=== PATIENT | female | born 1955 | race African-American/Black ===

== ENCOUNTER 2017-01-14 18:09 | Inpatient (IN) | payer MEDICAID ==
[~2017-01-14] VITALS: Ht 154.9 cm; Wt 83.1 kg
[~2017-01-14 18:09] MED LIST: ASPI-986 PO; ATOR-2 PO; CLOP75TA33 PO; FAMO20TA8 PO; FURO20TA4 PO; HYDR-4134 PO; INSU3INS6 SUBCUT; INSULIN LISPRO SQ; LEVO25TA7 PO; METO-385 PO
[2017-01-14] MEDS ORDERED: ASPIRIN 81MG TABLET PO STA (20:36)
[2017-01-14 21:19] LABS: BASOPHILS % 0.7 % (0.0-2.0); CHLORIDE 98 mEq/L (98-107); EOSINOPHILS % 3.3 % (0.0-5.0); HEMATOCRIT. 31.7 % (36.0-48.0); HEMOGLOBIN. 10.4 g/dL (12.0-16.0); LYMPHOCYTES % 13.5 % (20.0-50.0); MEAN CORPUSCULAR HEMOGLOBIN 29.9 pg (28.0-32.0); MEAN CORPUSCULAR VOLUME 90.6 fL (81.0-99.0); MEAN PLATELET VOLUME 8.3 fl (7.4-10.4); MONOCYTES % 7.3 % (2.0-8.0); NEUTROPHILS % 75.2 % (40.0-76.0); PLATELET 285 x1000/uL (130-400); RED CELL DISTRIBUTION WIDTH 17.5 % (11.6-14.6)
[2017-01-14 21:30] LABS: CARBON DIOXIDE 30 mEq/L (21-32); TROPONIN I 0.33 ng/mL (0.00-0.04)
[2017-01-14 21:34] LABS: D-DIMER 6.67 mg/L FEU (<0.50); PARTIAL THROMBOPLASTIN TIME 30.1 sec (24.0-34.0); PROTHROMBIN TIME 10.9 sec
[2017-01-14] MEDS ORDERED: SODIUM BICARBONATE 8.4% 1 MEQ/ML 50ML SYR IV ONE (21:45)
[2017-01-14] MEDS ORDERED: SODIUM POLYSTYRENE SULFONATE 15 G/60 ML BOT PO ONE (21:45)
[2017-01-15] MEDS ORDERED: ACETAMINOPHEN WITH CODEINE 300/30MG TABLET PO PRN (07:15)
[2017-01-15] MEDS ORDERED: DEXTROSE 50% WATER 50ML SYRINGE IV PRN ×2 (08:45→20:15)
[2017-01-15] MEDS: CLOPIDOGREL 75MG TABLET PO SCH (09:00)
[2017-01-15] MEDS: LEVOTHYROXINE SODIUM 50MCG TABLET PO SCH (09:00)
[2017-01-15] MEDS: DOCUSATE SODIUM 100MG CAPSULE PO SCH ×2 (09:00→16:17)
[2017-01-15] MEDS: METOPROLOL TARTRATE 50MG TABLET PO SCH ×2 (09:00→21:00)
[2017-01-15] MEDS: FUROSEMIDE 80MG TABLET PO SCH ×2 (10:00→16:17)
[2017-01-15] MEDS: BLOOD SUGAR DIAGNOSTIC STRIP TEST SCH ×3 (12:10→21:00)
[2017-01-15] MEDS: INSULIN LISPRO 100 UNITS/ML SUBCUT SCH ×3 (12:15→21:00)
[2017-01-15] MEDS: INSULIN DETEMIR UD 100 UNITS/ML SYR SUBCUT SCH (12:15)
[2017-01-15] MEDS ORDERED: ONDANSETRON HCL 4MG/2ML VIAL IV PRN (14:00)
[2017-01-15] MEDS: ACETAMINOPHEN 325MG TABLET PO PRN (17:06)
[2017-01-15] MEDS ORDERED: LEVOFLOXACIN 250MG TABLET PO NR (19:30)
[2017-01-15] MEDS ORDERED: REGADENOSON 0.4 MG/5 ML IV NR (19:30)
[2017-01-15] MEDS ORDERED: BLOOD SUGAR DIAGNOSTIC STRIP TEST SCH (21:00)
[2017-01-15] MEDS ORDERED: INSULIN LISPRO 100 UNITS/ML SUBCUT SCH (21:00)
[2017-01-15] MEDS ORDERED: INSULIN DETEMIR UD 100 UNITS/ML SYR SUBCUT SCH (22:00)
[2017-01-16] MEDS: ATORVASTATIN CALCIUM 40MG TABLET PO SCH ×2 (00:25→20:48)
[2017-01-16] MEDS: EPOETIN ALFA 4000UNITS/ML VIAL SUBCUT SCH (00:29)
[2017-01-16] MEDS: OMEPRAZOLE 20MG CAPSULE EXTENDED RELEASE PO SCH (06:41)
[2017-01-16] MEDS: LEVOTHYROXINE SODIUM 50MCG TABLET PO SCH (06:41)
[2017-01-16] MEDS: BLOOD SUGAR DIAGNOSTIC STRIP TEST SCH ×4 (07:10→20:57)
[2017-01-16 07:20] LABS: HEMATOCRIT. 27.9 % (36.0-48.0); HEMOGLOBIN. 9.2 g/dL (12.0-16.0); MEAN CORPUSCULAR VOLUME 91.1 fL (81.0-99.0); PLATELET 215 x1000/uL (130-400); RED BLOOD CELL COUNT 3.07 mill/uL (4.2-5.4); RED CELL DISTRIBUTION WIDTH 18.3 % (11.6-14.6)
[2017-01-16] MEDS: INSULIN LISPRO 100 UNITS/ML SUBCUT SCH ×4 (07:26→21:09)
[2017-01-16] MEDS ORDERED: VANCOMYCIN 1 G PREMIX 200 ML IV ONE (08:30)
[2017-01-16] MEDS: CLOPIDOGREL 75MG TABLET PO SCH (09:00)
[2017-01-16] MEDS: DOCUSATE SODIUM 100MG CAPSULE PO SCH ×2 (09:00→19:36)
[2017-01-16] MEDS: METOPROLOL TARTRATE 50MG TABLET PO SCH ×2 (09:00→20:49)
[2017-01-16] MEDS: FUROSEMIDE 80MG TABLET PO SCH ×2 (09:00→19:36)
[2017-01-16 09:12] LABS: CARBON DIOXIDE 24 mEq/L (21-32); CHLORIDE 101 mEq/L (98-107); PHOSPHORUS 4.7 mg/dL (2.5-4.9)
[2017-01-16] MEDS ORDERED: VANCOMYCIN 1500MG in DEXTROSE 5% WATER 250ML IV NR (09:30)
[2017-01-16 09:39] LABS: TROPONIN I 0.65 ng/mL (0.00-0.04)
[2017-01-16] MEDS ORDERED: CLONIDINE 0.1MG TABLET PO PRN (11:30)
[2017-01-16] MEDS ORDERED: CLONIDINE 0.2MG TABLET PO PRN (11:30)
[2017-01-16] MEDS: ENOXAPARIN 30MG/0.3ML SYR SUBCUT SCH (11:45)
[2017-01-16] MEDS: INSULIN DETEMIR UD 100 UNITS/ML SYR SUBCUT SCH (11:46)
[2017-01-16] MEDS: ACETAMINOPHEN 325MG TABLET PO PRN ×2 (11:47→22:33)
[2017-01-16 13:25] LABS: PLATELET ESTIMATE NORMAL
[2017-01-16 13:54] LABS: CLARITY URINE CLEAR (CLEAR); COLOR URINE YELLOW (YELLOW); KETONES URINE NEGATIVE (NEGATIVE); LEUKOCYTE ESTERASE URINE NEGATIVE (NEGATIVE); NITRITE URINE NEGATIVE (NEGATIVE); OCCULT BLOOD URINE 1+ (NEGATIVE); PROTEIN URINE 3+ (NEGATIVE); SPECIFIC GRAVITY URINE 1.016 (1.005-1.030)
[2017-01-16] MEDS: ASPIRIN 81MG TABLET PO SCH (19:36)
[2017-01-16] MEDS ORDERED: ROPI0.5T PO (23:23)
[2017-01-16] MEDS ORDERED: DOCU-267 PO (23:23)
[2017-01-16] MEDS ORDERED: HYDR-523 PO (23:23)
[2017-01-17] MEDS: OMEPRAZOLE 20MG CAPSULE EXTENDED RELEASE PO SCH (05:52)
[2017-01-17] MEDS: LEVOTHYROXINE SODIUM 50MCG TABLET PO SCH (05:52)
[2017-01-17] MEDS: BLOOD SUGAR DIAGNOSTIC STRIP TEST SCH ×4 (05:52→20:45)
[2017-01-17 06:42] LABS: HEMATOCRIT. 29.8 % (36.0-48.0); HEMOGLOBIN. 9.8 g/dL (12.0-16.0); MEAN CORPUSCULAR HEMOGLOBIN 29.6 pg (28.0-32.0); MEAN CORPUSCULAR VOLUME 89.7 fL (81.0-99.0); MEAN PLATELET VOLUME 8.5 fl (7.4-10.4); PLATELET 189 x1000/uL (130-400); RED BLOOD CELL COUNT 3.32 mill/uL (4.2-5.4); RED CELL DISTRIBUTION WIDTH 17.4 % (11.6-14.6)
[2017-01-17 07:17] LABS: CARBON DIOXIDE 28 mEq/L (21-32); CHLORIDE 94 mEq/L (98-107); CREATINE KINASE 542 IU/L (26-192); CREATINE KINASE MB FRACTION 1.8 ng/mL (0.5-3.6); HDL CHOLESTEROL 33 mg/dL (40-59); LDL CHOLESTEROL 49 mg/dL (5-100); TOTAL IRON BINDING CAPACITY 153 ug/dL (250-450)
[2017-01-17] MEDS: INSULIN LISPRO 100 UNITS/ML SUBCUT SCH ×4 (07:19→20:43)
[2017-01-17 07:39] LABS: TROPONIN I 0.89 ng/mL (0.00-0.04)
[2017-01-17 07:44] LABS: VITAMIN B12 SERUM 1074 pg/mL (211-911)
[2017-01-17] MEDS: METOPROLOL TARTRATE 50MG TABLET PO SCH ×2 (09:00→20:43)
[2017-01-17 09:11] LABS: PLATELET ESTIMATE NORMAL
[2017-01-17] MEDS: ENOXAPARIN 30MG/0.3ML SYR SUBCUT SCH (09:14)
[2017-01-17] MEDS: INSULIN DETEMIR UD 100 UNITS/ML SYR SUBCUT SCH (10:00)
[2017-01-17 10:12] LABS: BG BASE EXCESS 3.8 mmol/L (-2.0-2.0); BG CARBOXYHEMOGLOBIN 0.5 % (0.5-1.5); BG DEOXYHEMOGLOBIN 12.7 % (0.0-5.0); BG FRACTION INSPIRED OXYGEN 21; BG HCO3 ACT 27.4 mmol/L (22.0-26.0); BG METHEMOGLOBIN 0.3 % (0.0-1.5); BG OXYGEN SATURATION 87.2 % (92.0-98.5); BG OXYHEMOGLOBIN 86.5 % (94.0-97.0); BG PCO2 37.3 mmHg (35.0-45.0); BG PH 7.484 (7.350-7.450); BG PO2 53.9 mmHg (75.0-100.0); BG SAMPLE SITE LEFT RADIAL; BG TOTAL HEMOGLOBIN 9.4 g/dL (12.0-18.0); BG VENT MODE ROOM AIR
[2017-01-17] MEDS: MINERAL OIL/PETROLATUM,WHITE CREAM 113GM JAR TOP SCH (10:42)
[2017-01-17] MEDS ORDERED: LEVOFLOXACIN 250MG TABLET PO SCH (11:00)
[2017-01-17] MEDS: CLOPIDOGREL 75MG TABLET PO SCH (13:07)
[2017-01-17] MEDS: ASPIRIN 81MG TABLET PO SCH (13:07)
[2017-01-17] MEDS: FUROSEMIDE 80MG TABLET PO SCH ×2 (13:08→17:27)
[2017-01-17] MEDS: DOCUSATE SODIUM 100MG CAPSULE PO SCH ×2 (13:08→17:27)
[2017-01-17] MEDS ORDERED: VANCOMYCIN 1500MG in DEXTROSE 5% WATER 250ML IV NR (16:00)
[2017-01-17] MEDS: ATORVASTATIN CALCIUM 40MG TABLET PO SCH (20:42)
[2017-01-17] MEDS: EPOETIN ALFA 4000UNITS/ML VIAL SUBCUT SCH (20:43)
[2017-01-18] MEDS: LEVOTHYROXINE SODIUM 50MCG TABLET PO SCH (06:12)
[2017-01-18] MEDS: OMEPRAZOLE 20MG CAPSULE EXTENDED RELEASE PO SCH (06:12)
[2017-01-18] MEDS: BLOOD SUGAR DIAGNOSTIC STRIP TEST SCH ×4 (06:14→21:00)
[2017-01-18 07:05] LABS: HEMATOCRIT. 29.6 % (36.0-48.0); HEMOGLOBIN. 9.7 g/dL (12.0-16.0); MEAN CORPUSCULAR HEMOGLOBIN 29.8 pg (28.0-32.0); MEAN PLATELET VOLUME 9.2 fl (7.4-10.4); PLATELET 166 x1000/uL (130-400); RED BLOOD CELL COUNT 3.25 mill/uL (4.2-5.4); RED CELL DISTRIBUTION WIDTH 17.8 % (11.6-14.6)
[2017-01-18 07:23] LABS: PHOSPHORUS 2.9 mg/dL (2.5-4.9)
[2017-01-18] MEDS: DOCUSATE SODIUM 100MG CAPSULE PO SCH ×2 (08:11→17:00)
[2017-01-18] MEDS: INSULIN LISPRO 100 UNITS/ML SUBCUT SCH ×4 (08:11→22:27)
[2017-01-18] MEDS: ENOXAPARIN 30MG/0.3ML SYR SUBCUT SCH (08:11)
[2017-01-18] MEDS: FUROSEMIDE 80MG TABLET PO SCH ×2 (08:12→17:39)
[2017-01-18] MEDS: MINERAL OIL/PETROLATUM,WHITE CREAM 113GM JAR TOP SCH (08:12)
[2017-01-18] MEDS: CLOPIDOGREL 75MG TABLET PO SCH (08:12)
[2017-01-18] MEDS: METOPROLOL TARTRATE 50MG TABLET PO SCH (08:12)
[2017-01-18] MEDS: ASPIRIN 81MG TABLET PO SCH (08:14)
[2017-01-18] MEDS: INSULIN DETEMIR UD 100 UNITS/ML SYR SUBCUT SCH (10:47)
[2017-01-18 12:35] LABS: PLATELET ESTIMATE NORMAL
[2017-01-18] MEDS ORDERED: SODIUM CHLORIDE 0.9% 10ML VIAL ONE (14:46)
[2017-01-18] MEDS ORDERED: IOHEXOL-350 100 ML BOTTLE ONE (14:46)
[2017-01-18] MEDS: METOPROLOL TARTRATE 25MG TABLET PO SCH (21:00)
[2017-01-18] MEDS ORDERED: ATORVASTATIN CALCIUM 20MG TABLET PO SCH (21:00)
[2017-01-18] MEDS: ATORVASTATIN CALCIUM 40MG TABLET PO SCH (22:25)
[2017-01-19] MEDS: BLOOD SUGAR DIAGNOSTIC STRIP TEST SCH ×4 (06:25→20:44)
[2017-01-19] MEDS: OMEPRAZOLE 20MG CAPSULE EXTENDED RELEASE PO SCH (06:25)
[2017-01-19] MEDS: LEVOTHYROXINE SODIUM 50MCG TABLET PO SCH (06:25)
[2017-01-19 07:02] LABS: HEMATOCRIT. 25.8 % (36.0-48.0); HEMOGLOBIN. 8.6 g/dL (12.0-16.0); MEAN CORPUSCULAR HEMOGLOBIN 29.8 pg (28.0-32.0); MEAN CORPUSCULAR VOLUME 89.9 fL (81.0-99.0); MEAN PLATELET VOLUME 8.7 fl (7.4-10.4); PLATELET 182 x1000/uL (130-400); RED BLOOD CELL COUNT 2.87 mill/uL (4.2-5.4); RED CELL DISTRIBUTION WIDTH 17.9 % (11.6-14.6)
[2017-01-19] MEDS: INSULIN LISPRO 100 UNITS/ML SUBCUT SCH ×4 (07:20→21:03)
[2017-01-19 07:37] LABS: PHOSPHORUS 3.8 mg/dL (2.5-4.9)
[2017-01-19] MEDS: CLOPIDOGREL 75MG TABLET PO SCH (08:34)
[2017-01-19] MEDS: ASPIRIN 81MG TABLET PO SCH (08:34)
[2017-01-19] MEDS: FUROSEMIDE 80MG TABLET PO SCH (08:34)
[2017-01-19] MEDS: METOPROLOL TARTRATE 25MG TABLET PO SCH ×2 (08:35→20:54)
[2017-01-19] MEDS: ENOXAPARIN 30MG/0.3ML SYR SUBCUT SCH (08:36)
[2017-01-19] MEDS: MINERAL OIL/PETROLATUM,WHITE CREAM 113GM JAR TOP SCH (08:47)
[2017-01-19] MEDS: DOCUSATE SODIUM 100MG CAPSULE PO SCH (09:00)
[2017-01-19] MEDS: INSULIN DETEMIR UD 100 UNITS/ML SYR SUBCUT SCH (11:24)
[2017-01-19] MEDS: DIPHENOXYLATE/ATROPINE 2.5/0.025MG TABLET PO PRN (13:46)
[2017-01-19 15:08] LABS: PLATELET ESTIMATE NORMAL
[2017-01-19] MEDS ORDERED: EPOETIN ALFA 4000UNITS/ML VIAL SUBCUT SCH (21:00)
[2017-01-19] MEDS: ATORVASTATIN CALCIUM 40MG TABLET PO SCH (21:02)
[2017-01-20] MEDS: BLOOD SUGAR DIAGNOSTIC STRIP TEST SCH ×3 (06:56→16:08)
[2017-01-20] MEDS: OMEPRAZOLE 20MG CAPSULE EXTENDED RELEASE PO SCH (06:57)
[2017-01-20] MEDS: INSULIN LISPRO 100 UNITS/ML SUBCUT SCH ×3 (07:19→16:51)
[2017-01-20] MEDS: CLOPIDOGREL 75MG TABLET PO SCH (08:25)
[2017-01-20] MEDS: ENOXAPARIN 30MG/0.3ML SYR SUBCUT SCH (08:25)
[2017-01-20] MEDS: ASPIRIN 81MG TABLET PO SCH (08:25)
[2017-01-20] MEDS: MINERAL OIL/PETROLATUM,WHITE CREAM 113GM JAR TOP SCH (08:26)
[2017-01-20] MEDS ORDERED: FUROSEMIDE 80MG TABLET PO SCH (09:00)
[2017-01-20 09:54] LABS: BG BASE EXCESS 0.9 mmol/L (-2.0-2.0); BG CARBOXYHEMOGLOBIN 0.2 % (0.5-1.5); BG DEOXYHEMOGLOBIN 6.4 % (0.0-5.0); BG FRACTION INSPIRED OXYGEN 21; BG HCO3 ACT 24.9 mmol/L (22.0-26.0); BG METHEMOGLOBIN 0.3 % (0.0-1.5); BG OXYGEN SATURATION 93.6 % (92.0-98.5); BG OXYHEMOGLOBIN 93.1 % (94.0-97.0); BG PCO2 37.1 mmHg (35.0-45.0); BG PH 7.444 (7.350-7.450); BG PO2 72.2 mmHg (75.0-100.0); BG SAMPLE SITE LEFT BRACHIAL; BG TOTAL HEMOGLOBIN 9.3 g/dL (12.0-18.0); BG VENT MODE ROOM AIR
[2017-01-20] MEDS: DIPHENOXYLATE/ATROPINE 2.5/0.025MG TABLET PO PRN (10:40)
[2017-01-20] MEDS: INSULIN DETEMIR UD 100 UNITS/ML SYR SUBCUT SCH (11:20)
[2017-01-20] MEDS: METOPROLOL TARTRATE 25MG TABLET PO SCH (16:33)
[2017-01-20 18:00] VITALS: BP 148/65
[2017-01-21] MEDS ORDERED: FAMOTIDINE 20MG TABLET PO SCH (06:50)
== END 2017-01-20 18:53 | disposition home or self-care (01) | DRG 466 ==
LOC: ER 18:36 → 8WST 22:13 → EDBEDREQ 22:19 → ENRESERV 01-15 07:03 → 3WST 01-16 22:50
PROVIDERS: ADMIT Internal Medicine Pulmonary Disease; ATTEND Internal Medicine Pulmonary Disease
PROC: 5A1D60Z (ICD-10-PCS; 2017-01-15)
PROC: 02HV33Z Insertion of Infusion Device into Superior Vena Cava, Percutaneous Approach (ICD-10-PCS; principal; 2017-01-18)
PROC: B548ZZA Ultrasonography of Superior Vena Cava, Guidance (ICD-10-PCS; 2017-01-18)
PROC: B5181ZA Fluoroscopy of Superior Vena Cava using Low Osmolar Contrast, Guidance (ICD-10-PCS; 2017-01-18)
DX: T82.7XXA Infection and inflammatory reaction due to other cardiac and vascular devices, implants and grafts, initial encounter (principal); N18.6 End stage renal disease; I13.2 Hypertensive heart and chronic kidney disease with heart failure and with stage 5 chronic kidney disease, or end stage renal disease; E11.22 Type 2 diabetes mellitus with diabetic chronic kidney disease; I27.2 Other secondary pulmonary hypertension; I69.354 Hemiplegia and hemiparesis following cerebral infarction affecting left non-dominant side; K21.9 Gastro-esophageal reflux disease without esophagitis; I44.0 Atrioventricular block, first degree; D63.8 Anemia in other chronic diseases classified elsewhere; E03.9 Hypothyroidism, unspecified; E78.00 Pure hypercholesterolemia, unspecified; I25.10 Atherosclerotic heart disease of native coronary artery without angina pectoris; I35.8 Other nonrheumatic aortic valve disorders; I50.9 Heart failure, unspecified; I70.0 Atherosclerosis of aorta; I87.2 Venous insufficiency (chronic) (peripheral); L28.0 Lichen simplex chronicus; N39.0 Urinary tract infection, site not specified; R09.02 Hypoxemia; J98.11 Atelectasis; R79.1 Abnormal coagulation profile; Z79.02 Long term (current) use of antithrombotics/antiplatelets; Z79.899 Other long term (current) drug therapy; Z87.01 Personal history of pneumonia (recurrent); Z87.891 Personal history of nicotine dependence; Z95.5 Presence of coronary angioplasty implant and graft; Z99.2 Dependence on renal dialysis; Z79.4 Long term (current) use of insulin
CPT/HCPCS: 36415; 36569; 36600; 71010; 71275; 76937; 77001; 78582; 80048; 80053; 80061; 80202; 81001; 82375; 82550; 82553; 82607; 82805; 82962; 83540; 83550; 83735; 83880; 84100; 84443; 84484; 85025; 85044; 85379; 85610; 85730; 87040; 87086; 93005; 93306; 93970; 96374; 97162; 97167; 99285; A4216; A9500; A9558; C1725; C1893; J0885; J1650; J1815; J3370; J3490; J7030; J7050; J7060; Q9967

== ENCOUNTER 2017-03-05 17:32 | Emergency (ER) | payer MEDICAID ==
[~2017-03-05] VITALS: Ht 162.6 cm; Wt 70.0 kg
[~2017-03-05 17:32] MED LIST changes: +DOCU-267 PO; +HYDR-523 PO; +ROPI0.5T PO
[2017-03-05 17:50] VITALS: BP 127/71
[2017-03-05] MEDS ORDERED: ASPIRIN 81MG TABLET PO STA (17:54)
[2017-03-05 18:36] LABS: BASOPHILS % 0.8 % (0.0-2.0); EOSINOPHILS % 6.3 % (0.0-5.0); HEMATOCRIT. 28.7 % (36.0-48.0); HEMOGLOBIN. 9.3 g/dL (12.0-16.0); LYMPHOCYTES % 12.2 % (20.0-50.0); MEAN CORPUSCULAR HEMOGLOBIN 30.3 pg (28.0-32.0); MEAN PLATELET VOLUME 8.1 fl (7.4-10.4); MONOCYTES % 11.7 % (2.0-8.0); PLATELET 357 x1000/uL (130-400); RED BLOOD CELL COUNT 3.08 mill/uL (4.2-5.4); RED CELL DISTRIBUTION WIDTH 17.3 % (11.6-14.6)
[2017-03-05 18:43] LABS: CHLORIDE 97 mEq/L (98-107)
[2017-03-05 18:44] LABS: INR 1.1; PROTHROMBIN TIME 11.5 sec (9.4-11.6)
[2017-03-05 18:48] LABS: CARBON DIOXIDE 26 mEq/L (21-32)
[2017-03-05 18:51] LABS: PHOSPHORUS 4.2 mg/dL (2.5-4.9)
[2017-03-05 18:56] LABS: TROPONIN I 0.28 ng/mL (0.00-0.04)
== END 2017-03-05 19:00 | disposition left against medical advice (07) ==
LOC: EDBEDREQ 18:07 → EDBEDREQTM 18:07 → ENRESERV 18:49 → CANRESERV 18:49 → ER 18:56 → ENRESERV 03-06 01:53 → CANRESERV 03-06 01:53 → CANBEDREQ 03-07 01:11
DX: I12.0 Hypertensive chronic kidney disease with stage 5 chronic kidney disease or end stage renal disease (principal); E11.22 Type 2 diabetes mellitus with diabetic chronic kidney disease; E78.5 Hyperlipidemia, unspecified; N18.6 End stage renal disease; R07.9 Chest pain, unspecified; N17.9 Acute kidney failure, unspecified; Z79.4 Long term (current) use of insulin; Z88.8 Allergy status to other drugs, medicaments and biological substances; Z99.2 Dependence on renal dialysis; Z79.82 Long term (current) use of aspirin; Z86.73 Personal history of transient ischemic attack (TIA), and cerebral infarction without residual deficits
CPT/HCPCS: 36415; 71010; 80053; 83690; 83735; 84100; 84443; 84484; 85025; 85610; 85730; 93005; 99285; Z7610

== ENCOUNTER 2018-02-17 15:05 | Inpatient (IN) | payer MEDICARE, MEDICAID ==
[~2018-02-17] VITALS: Ht 154.9 cm; Wt 72.6 kg
[2018-02-17] MEDS ORDERED: ONDANSETRON HCL 4MG/2ML INJ IV STA (20:46)
[2018-02-17] MEDS ORDERED: FAMOTIDINE 20MG/2ML VIAL IV STA (20:46)
[2018-02-17] MEDS ORDERED: MORPHINE SULFATE 4 MG/ML CPJ (NOT FOR IM USE) IV STA (20:46)
[2018-02-17 21:38] LABS: BASOPHILS % 0.6 % (0.0-2.0); EOSINOPHILS % 2.3 % (0.0-5.0); HEMATOCRIT. 35.1 % (36.0-48.0); HEMOGLOBIN. 11.6 g/dL (12.0-16.0); LYMPHOCYTES % 13.8 % (20.0-50.0); MEAN CORPUSCULAR VOLUME 93.9 fL (81.0-99.0); MONOCYTES % 8.9 % (2.0-8.0); NEUTROPHILS % 74.4 % (40.0-76.0); PLATELET 339 x1000/uL (130-400); RED BLOOD CELL COUNT 3.74 mill/uL (4.2-5.4); RED CELL DISTRIBUTION WIDTH 15.8 % (11.6-14.6)
[2018-02-17 21:41] LABS: CHLORIDE 93 mEq/L (98-107)
[2018-02-17 21:43] LABS: PARTIAL THROMBOPLASTIN TIME 26.7 sec (23.4-31.0); PROTHROMBIN TIME 10.5 sec (9.1-11.1)
[2018-02-17 21:47] LABS: PHOSPHORUS 6.3 mg/dL (2.5-4.9)
[2018-02-18] MEDS ORDERED: ASPIRIN 81MG TABLET PO ONE (00:30)
[2018-02-18] MEDS ORDERED: SODIUM POLYSTYRENE SULFONATE 15 G/60 ML BOT PO ONE (00:30)
[2018-02-18 02:00] VITALS: BP 177/80
[2018-02-18 04:00] VITALS: BP 148/77
[2018-02-18] MEDS ORDERED: DEXT 5%/0.45% NACL 1000ML 1,000 ML IV SCH (05:40)
[2018-02-18] MEDS ORDERED: ENOXAPARIN 40MG/0.4ML SYR SUBCUT SCH (05:45)
[2018-02-18] MEDS ORDERED: ONDANSETRON HCL 4MG/2ML INJ IV PRN (05:45)
[2018-02-18] MEDS ORDERED: HYDROMORPHONE HCL/PF 2MG/ML CPJ IV PRN (05:45)
[2018-02-18] MEDS: HYDRALAZINE HCL 50MG TABLET PO SCH ×2 (06:00→13:18)
[2018-02-18] MEDS ORDERED: DEXTROSE 50% WATER 50ML SYRINGE IV PRN (06:00)
[2018-02-18] MEDS: BLOOD SUGAR DIAGNOSTIC STRIP TEST SCH ×4 (06:00→21:41)
[2018-02-18] MEDS: ROPINIROLE HCL 1MG TABLET PO SCH ×4 (06:00→21:48)
[2018-02-18 06:51] LABS: BASOPHILS % 0.4 % (0.0-2.0); EOSINOPHILS % 1.9 % (0.0-5.0); HEMATOCRIT. 32.2 % (36.0-48.0); HEMOGLOBIN. 11.2 g/dL (12.0-16.0); LYMPHOCYTES % 12.4 % (20.0-50.0); MEAN CORPUSCULAR HEMOGLOBIN 32.3 pg (28.0-32.0); MEAN CORPUSCULAR VOLUME 92.4 fL (81.0-99.0); MEAN PLATELET VOLUME 8.6 fl (7.4-10.4); MONOCYTES % 6.4 % (2.0-8.0); NEUTROPHILS % 78.9 % (40.0-76.0); PLATELET 333 x1000/uL (130-400); RED BLOOD CELL COUNT 3.49 mill/uL (4.2-5.4); RED CELL DISTRIBUTION WIDTH 15.8 % (11.6-14.6)
[2018-02-18 07:01] LABS: CLARITY URINE CLEAR (CLEAR); COLOR URINE YELLOW (YELLOW); KETONES URINE NEGATIVE (NEGATIVE); LEUKOCYTE ESTERASE URINE TRACE (NEGATIVE); NITRITE URINE NEGATIVE (NEGATIVE); OCCULT BLOOD URINE NEGATIVE (NEGATIVE); PH URINE >=9.0 (4.5-8.0); PROTEIN URINE 2+ (NEGATIVE); SPECIFIC GRAVITY URINE 1.007 (1.005-1.030); UROBILINOGEN URINE 0.2 E.U./dL (0.2-1.0)
[2018-02-18 07:12] LABS: CHLORIDE 95 mEq/L (98-107)
[2018-02-18 07:21] LABS: AMYLASE 173 IU/L (25-115)
[2018-02-18] MEDS ORDERED: LEVOTHYROXINE SODIUM 25MCG TABLET PO SCH (07:40)
[2018-02-18 07:42] VITALS: BP 147/79
[2018-02-18] MEDS: INSULIN LISPRO 100 UNITS/ML SUBCUT SCH ×4 (08:10→21:00)
[2018-02-18] MEDS: CLOPIDOGREL 75MG TABLET PO SCH (09:27)
[2018-02-18] MEDS: ASPIRIN 81MG TABLET PO SCH (09:28)
[2018-02-18] MEDS: ENOXAPARIN 30MG/0.3ML SYR SUBCUT SCH (09:28)
[2018-02-18] MEDS: METOPROLOL TARTRATE 50MG TABLET PO SCH ×2 (09:28→21:48)
[2018-02-18 11:42] VITALS: BP 136/77
[2018-02-18 15:28] VITALS: BP 112/58
[2018-02-18 20:00] VITALS: BP 124/66
[2018-02-18] MEDS: ATORVASTATIN CALCIUM 40MG TABLET PO SCH (21:48)
[2018-02-19] VITALS: BP 151/75
[2018-02-19 04:00] VITALS: BP 149/71
[2018-02-19] MEDS: ROPINIROLE HCL 1MG TABLET PO SCH ×3 (05:49→21:16)
[2018-02-19 07:15] LABS: BASOPHILS % 0.4 % (0.0-2.0); EOSINOPHILS % 2.4 % (0.0-5.0); HEMATOCRIT. 32.6 % (36.0-48.0); LYMPHOCYTES % 11.6 % (20.0-50.0); MEAN CORPUSCULAR HEMOGLOBIN 31.4 pg (28.0-32.0); MEAN CORPUSCULAR VOLUME 93.5 fL (81.0-99.0); MEAN PLATELET VOLUME 8.2 fl (7.4-10.4); MONOCYTES % 6.5 % (2.0-8.0); NEUTROPHILS % 79.1 % (40.0-76.0); PLATELET 325 x1000/uL (130-400); RED BLOOD CELL COUNT 3.49 mill/uL (4.2-5.4); RED CELL DISTRIBUTION WIDTH 15.9 % (11.6-14.6)
[2018-02-19 07:30] LABS: PHOSPHORUS 4.8 mg/dL (2.5-4.9)
[2018-02-19] MEDS: INSULIN LISPRO 100 UNITS/ML SUBCUT SCH ×4 (08:10→21:00)
[2018-02-19] MEDS: ASPIRIN 81MG TABLET PO SCH (09:37)
[2018-02-19] MEDS: AMLODIPINE 10MG TABLET PO SCH (09:45)
[2018-02-19] MEDS: CLOPIDOGREL 75MG TABLET PO SCH (09:45)
[2018-02-19] MEDS: ENOXAPARIN 30MG/0.3ML SYR SUBCUT SCH (09:46)
[2018-02-19] MEDS: METOPROLOL TARTRATE 50MG TABLET PO SCH ×2 (09:46→21:16)
[2018-02-19] MEDS: BLOOD SUGAR DIAGNOSTIC STRIP TEST SCH ×3 (12:12→21:17)
[2018-02-19] MEDS ORDERED: NITROGLYCERIN 0.4MG TABLET SL SL PRN (15:00)
[2018-02-19] MEDS ORDERED: MORPHINE SULFATE 4 MG/ML CPJ (NOT FOR IM USE) IV PRN (15:15)
[2018-02-19 15:44] LABS: BG BASE EXCESS 1.4 mmol/L (-2.0-2.0); BG CARBOXYHEMOGLOBIN 0.1 % (0.5-1.5); BG DEOXYHEMOGLOBIN 8.5 % (0.0-5.0); BG FRACTION INSPIRED OXYGEN 28; BG HCO3 ACT 24.6 mmol/L (22.0-26.0); BG METHEMOGLOBIN 0.1 % (0.0-1.5); BG OXYGEN SATURATION 91.5 % (92.0-98.5); BG OXYHEMOGLOBIN 91.3 % (94.0-97.0); BG PCO2 33.6 mmHg (35.0-45.0); BG PH 7.482 (7.350-7.450); BG PO2 61.1 mmHg (75.0-100.0); BG SAMPLE SITE RIGHT RADIAL; BG VENT MODE NASAL CANNULA
[2018-02-19] MEDS: LOSARTAN POTASSIUM 50 MG TABLET PO SCH (15:47)
[2018-02-19] MEDS ORDERED: REGADENOSON 0.4 MG/5 ML IV NR (16:00)
[2018-02-19] MEDS ORDERED: ENOXAPARIN 40MG/0.4ML SYR SUBCUT NR (16:00)
[2018-02-19 16:23] VITALS: BP 125/69
[2018-02-19] MEDS ORDERED: CLONIDINE 0.1MG TABLET PO PRN (16:30)
[2018-02-19] MEDS ORDERED: CLONIDINE 0.2MG TABLET PO PRN (16:30)
[2018-02-19] MEDS: NITROGLYCERIN OINT 1GM/INCH UDPKT TD SCH ×2 (16:34→21:17)
[2018-02-19 17:30] LABS: CREATINE KINASE MB FRACTION 2.8 ng/mL (0.5-3.6)
[2018-02-19 20:16] VITALS: BP 133/67
[2018-02-19] MEDS: ATORVASTATIN CALCIUM 40MG TABLET PO SCH (21:16)
[2018-02-20] VITALS: BP 130/64
[2018-02-20 04:00] VITALS: BP 117/54
[2018-02-20] MEDS: NITROGLYCERIN OINT 1GM/INCH UDPKT TD SCH ×4 (04:35→22:32)
[2018-02-20] MEDS: ROPINIROLE HCL 1MG TABLET PO SCH ×3 (06:04→22:00)
[2018-02-20] MEDS: BLOOD SUGAR DIAGNOSTIC STRIP TEST SCH ×4 (06:53→21:00)
[2018-02-20 07:20] LABS: BASOPHILS % 0.6 % (0.0-2.0); EOSINOPHILS % 1.9 % (0.0-5.0); HEMATOCRIT. 28.1 % (36.0-48.0); HEMOGLOBIN. 9.7 g/dL (12.0-16.0); LYMPHOCYTES % 10.5 % (20.0-50.0); MEAN PLATELET VOLUME 8.4 fl (7.4-10.4); MONOCYTES % 6.3 % (2.0-8.0); NEUTROPHILS % 80.7 % (40.0-76.0); PLATELET 299 x1000/uL (130-400); RED BLOOD CELL COUNT 3.02 mill/uL (4.2-5.4); RED CELL DISTRIBUTION WIDTH 15.8 % (11.6-14.6)
[2018-02-20 07:47] LABS: CHLORIDE 101 mEq/L (98-107)
[2018-02-20 07:59] LABS: AMYLASE 101 IU/L (25-115); CREATINE KINASE 118 IU/L (26-192)
[2018-02-20] MEDS ORDERED: LIDOCAINE HCL 1% 10 MG/ML 10ML VIAL ONE (08:00)
[2018-02-20 08:01] LABS: CREATINE KINASE MB FRACTION 2.1 ng/mL (0.5-3.6); PHOSPHORUS 5.6 mg/dL (2.5-4.9)
[2018-02-20] MEDS: INSULIN LISPRO 100 UNITS/ML SUBCUT SCH ×4 (08:10→21:00)
[2018-02-20] MEDS: AMLODIPINE 10MG TABLET PO SCH (09:00)
[2018-02-20] MEDS: ENOXAPARIN 30MG/0.3ML SYR SUBCUT SCH (09:00)
[2018-02-20] MEDS: METOPROLOL TARTRATE 50MG TABLET PO SCH ×2 (09:00→22:32)
[2018-02-20] MEDS: LOSARTAN POTASSIUM 50 MG TABLET PO SCH (09:00)
[2018-02-20] MEDS: CLOPIDOGREL 75MG TABLET PO SCH (09:00)
[2018-02-20] MEDS: ASPIRIN 81MG TABLET PO SCH (09:00)
[2018-02-20] MEDS ORDERED: IOHEXOL-350 100 ML BOTTLE ONE (09:12)
[2018-02-20 12:00] VITALS: BP 140/66
[2018-02-20] MEDS: SEVELAMER CARBONATE 800 MG TABLET PO SCH ×2 (13:30→16:47)
[2018-02-20 15:44] VITALS: BP 137/73
[2018-02-20 20:21] VITALS: BP 138/77
[2018-02-20] MEDS ORDERED: EPOETIN ALFA 4000UNITS/ML VIAL SUBCUT SCH (21:00)
[2018-02-20] MEDS ORDERED: HEPARIN SODIUM 1,000 UNIT/1ML VIAL IV NR (21:15)
[2018-02-20] MEDS: ATORVASTATIN CALCIUM 40MG TABLET PO SCH (22:32)
[2018-02-20 23:46] VITALS: BP 112/76
[2018-02-21 04:00] VITALS: BP 124/60
[2018-02-21] MEDS: NITROGLYCERIN OINT 1GM/INCH UDPKT TD SCH ×3 (05:37→16:00)
[2018-02-21] MEDS: ROPINIROLE HCL 1MG TABLET PO SCH ×4 (05:37→13:38)
[2018-02-21] MEDS: BLOOD SUGAR DIAGNOSTIC STRIP TEST SCH ×3 (06:17→16:41)
[2018-02-21 06:31] LABS: BASOPHILS % 0.6 % (0.0-2.0); EOSINOPHILS % 4.8 % (0.0-5.0); HEMOGLOBIN. 9.3 g/dL (12.0-16.0); LYMPHOCYTES % 11.1 % (20.0-50.0); MEAN CORPUSCULAR VOLUME 92.9 fL (81.0-99.0); MEAN PLATELET VOLUME 8.3 fl (7.4-10.4); MONOCYTES % 9.4 % (2.0-8.0); NEUTROPHILS % 74.1 % (40.0-76.0); PLATELET 273 x1000/uL (130-400); RED BLOOD CELL COUNT 2.91 mill/uL (4.2-5.4); RED CELL DISTRIBUTION WIDTH 15.7 % (11.6-14.6)
[2018-02-21 07:03] LABS: PHOSPHORUS 4.7 mg/dL (2.5-4.9)
[2018-02-21 08:00] VITALS: BP 133/67
[2018-02-21] MEDS: INSULIN LISPRO 100 UNITS/ML SUBCUT SCH ×3 (08:10→18:10)
[2018-02-21] MEDS: ENOXAPARIN 30MG/0.3ML SYR SUBCUT SCH (08:46)
[2018-02-21] MEDS: METOPROLOL TARTRATE 50MG TABLET PO SCH (08:46)
[2018-02-21] MEDS: AMLODIPINE 10MG TABLET PO SCH (08:46)
[2018-02-21] MEDS: CLOPIDOGREL 75MG TABLET PO SCH (08:46)
[2018-02-21] MEDS: LOSARTAN POTASSIUM 50 MG TABLET PO SCH (08:47)
[2018-02-21] MEDS: ASPIRIN 81MG TABLET PO SCH (08:47)
[2018-02-21] MEDS: SEVELAMER CARBONATE 800 MG TABLET PO SCH ×3 (08:49→16:41)
[2018-02-21 12:00] VITALS: BP 129/63
[2018-02-21 16:00] VITALS: BP 117/65
[2018-02-21 17:26] VITALS: BP 117/65
== END 2018-02-21 19:00 | disposition home or self-care (01) | DRG 438 ==
LOC: ER 15:05 → 7WST 23:54 → EDBEDREQTM 23:55 → EDBEDREQ 23:55 → ENRESERV 02-18 00:02
PROVIDERS: ADMIT Ophthalmology; ATTEND Ophthalmology
PROC: 5A1D70Z Performance of Urinary Filtration, Intermittent, Less than 6 Hours Per Day (ICD-10-PCS; 2018-02-18)
PROC: 02HV33Z Insertion of Infusion Device into Superior Vena Cava, Percutaneous Approach (ICD-10-PCS; principal; 2018-02-20)
PROC: B548ZZA Ultrasonography of Superior Vena Cava, Guidance (ICD-10-PCS; 2018-02-20)
PROC: B5181ZA Fluoroscopy of Superior Vena Cava using Low Osmolar Contrast, Guidance (ICD-10-PCS; 2018-02-20)
DX: K85.10 Biliary acute pancreatitis without necrosis or infection (principal); N18.6 End stage renal disease; I13.11 Hypertensive heart and chronic kidney disease without heart failure, with stage 5 chronic kidney disease, or end stage renal disease; I69.354 Hemiplegia and hemiparesis following cerebral infarction affecting left non-dominant side; K76.0 Fatty (change of) liver, not elsewhere classified; E11.22 Type 2 diabetes mellitus with diabetic chronic kidney disease; E78.5 Hyperlipidemia, unspecified; E03.9 Hypothyroidism, unspecified; K21.9 Gastro-esophageal reflux disease without esophagitis; E78.00 Pure hypercholesterolemia, unspecified; I35.0 Nonrheumatic aortic (valve) stenosis; K80.20 Calculus of gallbladder without cholecystitis without obstruction; D64.9 Anemia, unspecified; E83.39 Other disorders of phosphorus metabolism; E87.5 Hyperkalemia; I44.0 Atrioventricular block, first degree; K74.60 Unspecified cirrhosis of liver; E11.21 Type 2 diabetes mellitus with diabetic nephropathy; Z79.4 Long term (current) use of insulin; Z79.899 Other long term (current) drug therapy; Z79.82 Long term (current) use of aspirin; Z88.8 Allergy status to other drugs, medicaments and biological substances; Z87.891 Personal history of nicotine dependence; Z99.2 Dependence on renal dialysis; Z99.3 Dependence on wheelchair; Z82.49 Family history of ischemic heart disease and other diseases of the circulatory system; Z83.3 Family history of diabetes mellitus
CPT/HCPCS: 36415; 36569; 36600; 71045; 71275; 74176; 76705; 76937; 77001; 78227; 78452; 80048; 80053; 80061; 80076; 81003; 82150; 82375; 82550; 82553; 82805; 82962; 83036; 83690; 83735; 84100; 84484; 85025; 85610; 85730; 87040; 93005; 93017; 93306; 93970; 96374; 96375; 97162; 99285; A9500; C1725; C1769; J0885; J1644; J1650; J1815; J2405; J3490; J7030; J7040; Q9967

== ENCOUNTER 2018-03-01 15:45 | Emergency (ER) | payer MEDICARE, MEDICAID ==
[~2018-03-01] VITALS: Ht 154.9 cm; Wt 66.0 kg
[2018-03-01 17:48] LABS: BASOPHILS % 0.7 % (0.0-2.0); EOSINOPHILS % 1.9 % (0.0-5.0); HEMATOCRIT. 36.9 % (36.0-48.0); HEMOGLOBIN. 12.2 g/dL (12.0-16.0); LYMPHOCYTES % 9.8 % (20.0-50.0); MEAN CORPUSCULAR HEMOGLOBIN 31.7 pg (28.0-32.0); MEAN PLATELET VOLUME 8.1 fl (7.4-10.4); MONOCYTES % 11.8 % (2.0-8.0); NEUTROPHILS % 75.8 % (40.0-76.0); PLATELET 395 x1000/uL (130-400); RED BLOOD CELL COUNT 3.84 mill/uL (4.2-5.4); RED CELL DISTRIBUTION WIDTH 16.6 % (11.6-14.6)
[2018-03-01 17:57] LABS: CHLORIDE 97 mEq/L (98-107)
[2018-03-02 04:20] VITALS: BP 148/62
== END 2018-03-02 05:01 | disposition home or self-care (01) ==
LOC: ER 15:45
DX: R07.89 Other chest pain (principal); E11.9 Type 2 diabetes mellitus without complications; I10 Essential (primary) hypertension; Z79.82 Long term (current) use of aspirin; Z79.4 Long term (current) use of insulin; Z79.899 Other long term (current) drug therapy
CPT/HCPCS: 36415; 71045; 80053; 83690; 84484; 85025; 93005; 99285; J7030

== ENCOUNTER 2018-04-29 00:44 | Inpatient (IN) | payer MEDICARE, MEDICAID ==
[~2018-04-29] VITALS: Ht 162.6 cm; Wt 76.2 kg
[2018-04-29] MEDS: BLOOD SUGAR DIAGNOSTIC STRIP TEST SCH ×3 (00:45→16:50)
[2018-04-29] MEDS ORDERED: MORPHINE SULFATE 4 MG/ML CPJ (NOT FOR IM USE) IV STA (01:17)
[2018-04-29 02:49] LABS: BASOPHILS % 0.5 % (0.0-2.0); EOSINOPHILS % 0.7 % (0.0-5.0); HEMATOCRIT. 45.5 % (36.0-48.0); HEMOGLOBIN. 15.2 g/dL (12.0-16.0); LYMPHOCYTES % 7.7 % (20.0-50.0); MEAN CORPUSCULAR HEMOGLOBIN 31.4 pg (28.0-32.0); MEAN CORPUSCULAR VOLUME 94.1 fL (81.0-99.0); MONOCYTES % 6.5 % (2.0-8.0); NEUTROPHILS % 84.6 % (40.0-76.0); PLATELET 340 x1000/uL (130-400); RED BLOOD CELL COUNT 4.84 mill/uL (4.2-5.4); RED CELL DISTRIBUTION WIDTH 14.8 % (11.6-14.6)
[2018-04-29 02:50] LABS: CHLORIDE 93 mEq/L (98-107)
[2018-04-29 02:54] LABS: PARTIAL THROMBOPLASTIN TIME 30.3 sec (23.4-31.0); PROTHROMBIN TIME 10.3 sec (9.1-11.1)
[2018-04-29] MEDS ORDERED: INSULIN REGULAR (HUMULIN R) 300UNITS/3ML IV SCH (03:23)
[2018-04-29] MEDS ORDERED: SODIUM POLYSTYRENE SULFONATE 15 G/60 ML BOT PO SCH (03:24)
[2018-04-29] MEDS ORDERED: DEXTROSE 50% WATER 50ML SYRINGE IV SCH (03:24)
[2018-04-29] MEDS ORDERED: ALBUTEROL (0.083%) 2.5MG/3ML NEB HHN SCH (03:24)
[2018-04-29] MEDS ORDERED: FUROSEMIDE 100MG/10ML VIAL IV SCH (03:25)
[2018-04-29] MEDS ORDERED: CALCIUM CHLORIDE 1GM/10ML SYR IV SCH (03:25)
[2018-04-29] MEDS ORDERED: SODIUM BICARBONATE 8.4% 1 MEQ/ML 50ML SYR IV SCH (03:25)
[2018-04-29] MEDS ORDERED: HEPARIN 25,000 UNITS PREMIX 500 ML IV PRN (04:15)
[2018-04-29] MEDS ORDERED: MORPHINE SULFATE 4 MG/ML CPJ (NOT FOR IM USE) IV ONE (04:15)
[2018-04-29] MEDS ORDERED: ASPIRIN 325MG EC TABLET PO ONE (04:15)
[2018-04-29] MEDS ORDERED: HEPARIN 5000 UNITS/ML VIAL IV SCH (04:15)
[2018-04-29] MEDS ORDERED: DIPHENHYDRAMINE 50MG/ML VIAL IV PRN (07:45)
[2018-04-29] MEDS ORDERED: GUAIFENESIN 200MG/10ML SUGAR FREE UDC PO PRN (07:45)
[2018-04-29] MEDS ORDERED: ACETAMINOPHEN 325MG TABLET PO PRN ×2 (07:45→12:15)
[2018-04-29] MEDS ORDERED: DOCUSATE SODIUM 100MG CAPSULE PO PRN (07:45)
[2018-04-29] MEDS ORDERED: IPRATROPIUM/ALBUTEROL 0.5-3(2.5)MG/3ML NEB INH PRN (07:45)
[2018-04-29] MEDS ORDERED: TRAMADOL 50MG TABLET PO PRN (07:45)
[2018-04-29] MEDS ORDERED: LORAZEPAM 0.5MG TABLET PO PRN (07:45)
[2018-04-29] MEDS ORDERED: CLONIDINE 0.1MG TABLET PO PRN ×2 (07:45→10:30)
[2018-04-29] MEDS ORDERED: ONDANSETRON HCL 4MG/2ML INJ IV PRN ×2 (07:45→12:15)
[2018-04-29] MEDS ORDERED: DEXTROSE 50% WATER 50ML SYRINGE IV PRN (07:45)
[2018-04-29] MEDS ORDERED: MAGNESIUM/ALUMINUM HYDROXIDE/SIMETHICONE 30ML UDC PO PRN (07:45)
[2018-04-29] MEDS ORDERED: NITROGLYCERIN 0.4MG TABLET SL SL PRN (07:45)
[2018-04-29] MEDS ORDERED: LIDOCAINE HCL 1% 20ML VIAL (Pyxis) INJ ONE ×2 (10:23→11:05)
[2018-04-29] MEDS ORDERED: IODIXANOL 320MG/ML 100 ML BOTTLE IV ONE (10:23)
[2018-04-29] MEDS ORDERED: ASPIRIN/SOD BICARB/CITRIC ACID 324MG TAB EFF ONE (10:46)
[2018-04-29] MEDS ORDERED: MIDAZOLAM HCL 2 MG/2 ML VIAL ONE (10:54)
[2018-04-29] MEDS ORDERED: FENTANYL CITRATE/PF 50MCG/ML 2ML VIAL ONE (10:54)
[2018-04-29] MEDS ORDERED: IOHEXOL-300 100 ML BOTTLE ONE (11:48)
[2018-04-29] MEDS ORDERED: CLOPIDOGREL 75MG TABLET ONE (11:59)
[2018-04-29] MEDS ORDERED: ASPIRIN 325MG EC TABLET PO SCH (12:00)
[2018-04-29] MEDS ORDERED: NITROGLYCERIN 0.4MG TABLET SL SL ONE (12:10)
[2018-04-29] MEDS ORDERED: CLOPIDOGREL 75MG TABLET PO ONE (12:15)
[2018-04-29] MEDS ORDERED: MORPHINE SULFATE 4 MG/ML CPJ (NOT FOR IM USE) IV PRN (12:15)
[2018-04-29] MEDS ORDERED: ATROPINE SULFATE 1MG/10ML SYR IV PRN (12:15)
[2018-04-29] MEDS: INSULIN LISPRO 100 UNITS/ML SUBCUT SCH ×3 (12:20→21:00)
[2018-04-29 13:00] VITALS: BP 121/78
[2018-04-29] MEDS: FAMOTIDINE 20MG TABLET PO SCH (13:44)
[2018-04-29] MEDS: SEVELAMER CARBONATE 800 MG TABLET PO SCH ×2 (13:44→17:20)
[2018-04-29] MEDS: FOLIC ACID/VITAMIN B COMP W-C TABLET PO SCH (13:44)
[2018-04-29] MEDS: METOPROLOL TARTRATE 25MG TABLET PO SCH (13:45)
[2018-04-29 14:00] VITALS: BP_SYST 146; BP_SYST 179; BP_DIAS 83; BP_DIAS 85
[2018-04-29] MEDS ORDERED: HEPARIN SODIUM 1,000 UNIT/1ML VIAL IV ONE (14:17)
[2018-04-29 15:53] VITALS: BP_SYST 141; BP_SYST 153; BP_DIAS 69; BP_DIAS 75
[2018-04-29] MEDS ORDERED: NITROGLYCERIN 50MCG/ML 10ML VIAL (CATH LAB) IV ONE (16:09)
[2018-04-29 17:56] LABS: CREATINE KINASE MB FRACTION 5.2 ng/mL (0.5-3.6)
[2018-04-29 18:00] VITALS: BP 144/80
[2018-04-29 20:00] VITALS: BP 134/86
[2018-04-29] MEDS ORDERED: ZOLPIDEM TARTRATE 5MG TABLET PO PRN (21:00)
[2018-04-29 22:00] VITALS: BP 110/73
[2018-04-30] VITALS (12 sets, daily range): BP systolic 112–169; BP diastolic 46–119
[2018-04-30] MEDS: INSULIN GLARGINE UD 100 UNITS/ML SYR SUBCUT SCH ×4 (01:00→23:20)
[2018-04-30] MEDS: FAMOTIDINE 20MG TABLET PO SCH ×2 (01:02→08:37)
[2018-04-30] MEDS: METOPROLOL TARTRATE 25MG TABLET PO SCH ×3 (01:02→21:17)
[2018-04-30] MEDS: INSULIN LISPRO 100 UNITS/ML SUBCUT SCH ×4 (06:52→21:00)
[2018-04-30] MEDS: BLOOD SUGAR DIAGNOSTIC STRIP TEST SCH ×4 (06:52→21:17)
[2018-04-30 07:22] LABS: BASOPHILS % 0.5 % (0.0-2.0); EOSINOPHILS % 1.6 % (0.0-5.0); HEMATOCRIT. 37.7 % (36.0-48.0); HEMOGLOBIN. 12.6 g/dL (12.0-16.0); LYMPHOCYTES % 8.7 % (20.0-50.0); MEAN CORPUSCULAR HEMOGLOBIN 31.5 pg (28.0-32.0); MEAN CORPUSCULAR VOLUME 94.6 fL (81.0-99.0); MEAN PLATELET VOLUME 8.9 fl (7.4-10.4); MONOCYTES % 6.4 % (2.0-8.0); NEUTROPHILS % 82.8 % (40.0-76.0); PLATELET 275 x1000/uL (130-400); RED BLOOD CELL COUNT 3.99 mill/uL (4.2-5.4); RED CELL DISTRIBUTION WIDTH 14.6 % (11.6-14.6)
[2018-04-30] MEDS: ASPIRIN 325MG TABLET PO SCH (08:36)
[2018-04-30] MEDS: FOLIC ACID/VITAMIN B COMP W-C TABLET PO SCH (08:36)
[2018-04-30] MEDS: SEVELAMER CARBONATE 800 MG TABLET PO SCH ×3 (08:36→18:47)
[2018-04-30] MEDS: CLOPIDOGREL 75MG TABLET PO SCH (08:37)
[2018-04-30 09:24] LABS: CHLORIDE 100 mEq/L (98-107)
[2018-04-30 09:31] LABS: PHOSPHORUS 7.2 mg/dL (2.5-4.9)
[2018-04-30] MEDS: NYSTATIN POWDER 15GM TOP SCH ×2 (12:30→17:00)
[2018-04-30] MEDS ORDERED: SODIUM POLYSTYRENE SULFONATE 15 G/60 ML BOT PO NR (13:30)
[2018-05-01] VITALS (14 sets, daily range): BP systolic 133–157; BP diastolic 56–90
[2018-05-01] MEDS: BLOOD SUGAR DIAGNOSTIC STRIP TEST SCH ×4 (06:40→21:00)
[2018-05-01] MEDS: INSULIN LISPRO 100 UNITS/ML SUBCUT SCH ×5 (07:01→21:00)
[2018-05-01 07:30] LABS: BASOPHILS % 0.4 % (0.0-2.0); EOSINOPHILS % 3.2 % (0.0-5.0); HEMOGLOBIN. 11.4 g/dL (12.0-16.0); LYMPHOCYTES % 10.9 % (20.0-50.0); MEAN CORPUSCULAR HEMOGLOBIN 31.6 pg (28.0-32.0); MEAN CORPUSCULAR VOLUME 93.8 fL (81.0-99.0); MEAN PLATELET VOLUME 9.1 fl (7.4-10.4); MONOCYTES % 10.4 % (2.0-8.0); NEUTROPHILS % 75.1 % (40.0-76.0); PLATELET 271 x1000/uL (130-400); RED BLOOD CELL COUNT 3.62 mill/uL (4.2-5.4); RED CELL DISTRIBUTION WIDTH 14.9 % (11.6-14.6)
[2018-05-01 07:51] LABS: PHOSPHORUS 7.7 mg/dL (2.5-4.9)
[2018-05-01] MEDS: SEVELAMER CARBONATE 800 MG TABLET PO SCH ×3 (08:12→17:30)
[2018-05-01] MEDS: CLOPIDOGREL 75MG TABLET PO SCH (10:42)
[2018-05-01] MEDS: ASPIRIN 325MG TABLET PO SCH (10:42)
[2018-05-01] MEDS: FOLIC ACID/VITAMIN B COMP W-C TABLET PO SCH (13:04)
[2018-05-01] MEDS: FAMOTIDINE 20MG TABLET PO SCH (13:05)
[2018-05-01] MEDS: METOPROLOL TARTRATE 25MG TABLET PO SCH ×2 (13:05→22:01)
[2018-05-01] MEDS: NYSTATIN POWDER 15GM TOP SCH ×3 (13:05→17:31)
[2018-05-01] MEDS: INSULIN GLARGINE UD 100 UNITS/ML SYR SUBCUT SCH (22:00)
[2018-05-02] VITALS (8 sets, daily range): BP systolic 135–154; BP diastolic 69–86
[2018-05-02] MEDS: BLOOD SUGAR DIAGNOSTIC STRIP TEST SCH ×2 (07:36→12:28)
[2018-05-02 07:47] LABS: BASOPHILS % 0.5 % (0.0-2.0); EOSINOPHILS % 3.1 % (0.0-5.0); HEMATOCRIT. 37.8 % (36.0-48.0); HEMOGLOBIN. 12.4 g/dL (12.0-16.0); LYMPHOCYTES % 10.3 % (20.0-50.0); MEAN CORPUSCULAR HEMOGLOBIN 30.9 pg (28.0-32.0); MEAN CORPUSCULAR VOLUME 94.2 fL (81.0-99.0); MEAN PLATELET VOLUME 8.9 fl (7.4-10.4); MONOCYTES % 12.3 % (2.0-8.0); NEUTROPHILS % 73.8 % (40.0-76.0); PLATELET 271 x1000/uL (130-400); RED BLOOD CELL COUNT 4.02 mill/uL (4.2-5.4); RED CELL DISTRIBUTION WIDTH 14.9 % (11.6-14.6)
[2018-05-02] MEDS: ASPIRIN 325MG TABLET PO SCH (09:17)
[2018-05-02] MEDS: SEVELAMER CARBONATE 800 MG TABLET PO SCH ×2 (09:17→12:33)
[2018-05-02] MEDS: FOLIC ACID/VITAMIN B COMP W-C TABLET PO SCH (09:17)
[2018-05-02] MEDS: METOPROLOL TARTRATE 25MG TABLET PO SCH (09:17)
[2018-05-02] MEDS: FAMOTIDINE 20MG TABLET PO SCH (09:18)
[2018-05-02] MEDS: NYSTATIN POWDER 15GM TOP SCH (09:19)
[2018-05-02] MEDS: CLOPIDOGREL 75MG TABLET PO SCH (09:19)
[2018-05-02] MEDS: INSULIN LISPRO 100 UNITS/ML SUBCUT SCH (12:34)
== END 2018-05-02 13:45 | disposition home health service (06) | DRG 246 ==
LOC: ER 00:44 → 3WST 04:12 → EDBEDREQ 04:14 → EDBEDREQTM 04:14 → SUPCPDRO 07:31 → ENRESERV 11:46
PROVIDERS: ADMIT Internal Medicine; ATTEND Internal Medicine
PROC: 4A023N7 Measurement of Cardiac Sampling and Pressure, Left Heart, Percutaneous Approach (ICD-10-PCS; principal; 2018-04-29)
PROC: 027035Z Dilation of Coronary Artery, One Artery with Two Drug-eluting Intraluminal Devices, Percutaneous Approach (ICD-10-PCS; 2018-04-29)
PROC: B2111ZZ Fluoroscopy of Multiple Coronary Arteries using Low Osmolar Contrast (ICD-10-PCS; 2018-04-29)
PROC: 5A1D70Z Performance of Urinary Filtration, Intermittent, Less than 6 Hours Per Day (ICD-10-PCS; 2018-04-29)
PROC: 5A1D70Z Performance of Urinary Filtration, Intermittent, Less than 6 Hours Per Day (ICD-10-PCS; 2018-05-01)
DX: I21.4 Non-ST elevation (NSTEMI) myocardial infarction (principal); N18.6 End stage renal disease; J96.91 Respiratory failure, unspecified with hypoxia; I12.0 Hypertensive chronic kidney disease with stage 5 chronic kidney disease or end stage renal disease; E44.0 Moderate protein-calorie malnutrition; E87.1 Hypo-osmolality and hyponatremia; E87.2 Acidosis; I69.354 Hemiplegia and hemiparesis following cerebral infarction affecting left non-dominant side; E87.5 Hyperkalemia; D63.8 Anemia in other chronic diseases classified elsewhere; D72.829 Elevated white blood cell count, unspecified; E03.9 Hypothyroidism, unspecified; E11.22 Type 2 diabetes mellitus with diabetic chronic kidney disease; E78.00 Pure hypercholesterolemia, unspecified; I27.20 Pulmonary hypertension, unspecified; L30.4 Erythema intertrigo; I35.0 Nonrheumatic aortic (valve) stenosis; I44.0 Atrioventricular block, first degree; Z79.899 Other long term (current) drug therapy; Z99.2 Dependence on renal dialysis; Z99.3 Dependence on wheelchair; Z88.8 Allergy status to other drugs, medicaments and biological substances; Z68.28 Body mass index [BMI] 28.0-28.9, adult; Z79.1 Long term (current) use of non-steroidal anti-inflammatories (NSAID); Z79.82 Long term (current) use of aspirin; Z82.49 Family history of ischemic heart disease and other diseases of the circulatory system; Z83.3 Family history of diabetes mellitus
CPT/HCPCS: 36415; 71045; 80048; 80061; 82550; 82553; 82962; 83036; 83735; 83880; 84100; 84132; 84134; 84443; 84484; 85347; 85379; 92928; 93005; 93306; 93454; 93970; 97162; 97166; 97530; 97535; 99285; A6261; C1725; C1726; C1769; C1874; C1887; C1893; J1644; J1815; J1940; J2250; J2270; J3010; J3490; Q9967

== ENCOUNTER 2018-12-01 17:33 | Inpatient (IN) | payer MEDICARE, MEDICAID ==
[~2018-12-01] VITALS: Ht 154.9 cm; Wt 62.2 kg
[2018-12-01] MEDS ORDERED: MORPHINE SULFATE 4 MG/ML CPJ (NOT FOR IM USE) IV STA (18:12)
[2018-12-01] MEDS ORDERED: SODIUM CHLORIDE 0.9% 500 ML IV ONE (18:15)
[2018-12-01 20:01] LABS: HEMATOCRIT. 35.2 % (36.0-48.0); HEMOGLOBIN. 11.4 g/dL (12.0-16.0); MEAN CORPUSCULAR HEMOGLOBIN 29.6 pg (28.0-32.0); MEAN CORPUSCULAR VOLUME 91.1 fL (81.0-99.0); MEAN PLATELET VOLUME 8.7 fl (7.4-10.4); PLATELET 339 x1000/uL (130-400); RED BLOOD CELL COUNT 3.87 mill/uL (4.2-5.4); RED CELL DISTRIBUTION WIDTH 16.4 % (11.6-14.6)
[2018-12-01 20:08] LABS: CHLORIDE 97 mEq/L (98-107)
[2018-12-01 20:09] LABS: INR 1.1; PROTHROMBIN TIME 11.5 sec (9.6-11.0)
[2018-12-01 20:19] LABS: PLATELET ESTIMATE NORMAL
[2018-12-01] MEDS ORDERED: FUROSEMIDE 100MG/10ML VIAL IV STA (20:27)
[2018-12-01] MEDS ORDERED: SODIUM POLYSTYRENE SULFONATE 15 G/60 ML BOT PO ONE (20:30)
[2018-12-01] MEDS ORDERED: DEXTROSE 50% WATER 50ML SYRINGE IV NR (20:30)
[2018-12-01] MEDS ORDERED: CALCIUM CHLORIDE 1GM/10ML SYR IV NR (20:30)
[2018-12-01] MEDS ORDERED: INSULIN REGULAR (HUMULIN R) 300UNITS/3ML IV NR (20:30)
[2018-12-01] MEDS ORDERED: ALBUTEROL (0.083%) 2.5MG/3ML NEB HHN NR (20:30)
[2018-12-01] MEDS ORDERED: SODIUM BICARBONATE 8.4% 1 MEQ/ML 50ML SYR IV NR (20:30)
[2018-12-01] MEDS ORDERED: DEXTROSE 50% WATER 50ML SYRINGE IV PRN (21:30)
[2018-12-01] MEDS ORDERED: CLONIDINE 0.1MG TABLET PO PRN (21:30)
[2018-12-01] MEDS ORDERED: MAGNESIUM/ALUMINUM HYDROXIDE/SIMETHICONE 30ML UDC PO PRN (21:30)
[2018-12-01] MEDS ORDERED: NITROGLYCERIN 0.4MG TABLET SL SL PRN (21:30)
[2018-12-01] MEDS ORDERED: DIPHENHYDRAMINE 50MG/ML VIAL IV PRN (21:30)
[2018-12-01] MEDS ORDERED: GUAIFENESIN 200MG/10ML SUGAR FREE UDC PO PRN (21:30)
[2018-12-01] MEDS ORDERED: ONDANSETRON HCL 4MG/2ML INJ IV PRN (21:30)
[2018-12-01] MEDS ORDERED: LORAZEPAM 0.5MG TABLET PO PRN (21:30)
[2018-12-01] MEDS ORDERED: IPRATROPIUM/ALBUTEROL 0.5-3(2.5)MG/3ML NEB INH PRN (21:30)
[2018-12-01] MEDS ORDERED: MORPHINE SULFATE 2 MG/ML CPJ (NOT FOR IM USE) IV PRN (22:00)
[2018-12-02] VITALS (12 sets, daily range): BP systolic 80–144; BP diastolic 49–75
[2018-12-02] MEDS ORDERED: SODIUM POLYSTYRENE SULFONATE 15 G/60 ML BOT PO NR
[2018-12-02] MEDS: TRAMADOL 50MG TABLET PO PRN ×2 (00:58→13:03)
[2018-12-02] MEDS ORDERED: HEPARIN SODIUM 1,000 UNIT/1ML VIAL IV NR (05:45)
[2018-12-02] MEDS: BLOOD SUGAR DIAGNOSTIC STRIP TEST SCH ×4 (06:28→20:12)
[2018-12-02 06:30] LABS: HEMATOCRIT. 29.3 % (36.0-48.0); HEMOGLOBIN. 9.7 g/dL (12.0-16.0); MEAN CORPUSCULAR HEMOGLOBIN 29.9 pg (28.0-32.0); MEAN CORPUSCULAR VOLUME 90.8 fL (81.0-99.0); MEAN PLATELET VOLUME 8.6 fl (7.4-10.4); PLATELET 285 x1000/uL (130-400); RED BLOOD CELL COUNT 3.23 mill/uL (4.2-5.4); RED CELL DISTRIBUTION WIDTH 16.4 % (11.6-14.6)
[2018-12-02] MEDS: ACETAMINOPHEN 325MG TABLET PO PRN (06:34)
[2018-12-02] MEDS ORDERED: SEVELAMER CARBONATE 800 MG TABLET PO SCH (07:20)
[2018-12-02] MEDS: INSULIN LISPRO 100 UNITS/ML SUBCUT SCH ×4 (07:20→20:13)
[2018-12-02 07:25] LABS: PHOSPHORUS 6.3 mg/dL (2.5-4.9)
[2018-12-02 07:30] LABS: CREATINE KINASE MB FRACTION 5.1 ng/mL (0.5-3.6)
[2018-12-02] MEDS: FOLIC ACID/VITAMIN B COMP W-C TABLET PO SCH (08:31)
[2018-12-02] MEDS: CLOPIDOGREL 75MG TABLET PO SCH (08:32)
[2018-12-02] MEDS: ASPIRIN 81MG EC TABLET PO SCH (08:32)
[2018-12-02] MEDS: FAMOTIDINE 20MG TABLET PO SCH (08:32)
[2018-12-02] MEDS: METOPROLOL TARTRATE 25MG TABLET PO SCH ×2 (08:34→22:27)
[2018-12-02] MEDS: ENOXAPARIN 30MG/0.3ML SYR SUBCUT SCH (08:34)
[2018-12-02] MEDS ORDERED: AMLODIPINE 10MG TABLET PO SCH (09:00)
[2018-12-02] MEDS: SEVELAMER CARBONATE 800 MG TABLET PO SCH ×2 (12:31→18:29)
[2018-12-02 17:54] LABS: PLATELET ESTIMATE NORMAL
[2018-12-02] MEDS: ATORVASTATIN CALCIUM 40MG TABLET PO SCH (20:19)
[2018-12-02] MEDS: EPOETIN ALFA 4000UNITS/ML VIAL SUBCUT SCH (20:20)
[2018-12-03] VITALS (11 sets, daily range): BP systolic 82–149; BP diastolic 41–89
[2018-12-03] MEDS: BLOOD SUGAR DIAGNOSTIC STRIP TEST SCH ×4 (05:40→20:57)
[2018-12-03 06:30] LABS: BASOPHILS % 1.1 % (0.0-2.0); EOSINOPHILS % 2.9 % (0.0-5.0); HEMATOCRIT. 31.3 % (36.0-48.0); LYMPHOCYTES % 7.3 % (20.0-50.0); MEAN CORPUSCULAR HEMOGLOBIN 29.6 pg (28.0-32.0); MEAN CORPUSCULAR VOLUME 92.8 fL (81.0-99.0); MEAN PLATELET VOLUME 9.3 fl (7.4-10.4); MONOCYTES % 8.2 % (2.0-8.0); NEUTROPHILS % 80.5 % (40.0-76.0); PLATELET 287 x1000/uL (130-400); RED BLOOD CELL COUNT 3.38 mill/uL (4.2-5.4); RED CELL DISTRIBUTION WIDTH 16.7 % (11.6-14.6)
[2018-12-03] MEDS: INSULIN LISPRO 100 UNITS/ML SUBCUT SCH ×4 (07:20→20:57)
[2018-12-03] MEDS: ASPIRIN 81MG EC TABLET PO SCH ×2 (08:15→18:25)
[2018-12-03] MEDS: FAMOTIDINE 20MG TABLET PO SCH (08:16)
[2018-12-03] MEDS: FOLIC ACID/VITAMIN B COMP W-C TABLET PO SCH (08:16)
[2018-12-03] MEDS: SEVELAMER CARBONATE 800 MG TABLET PO SCH ×3 (08:16→21:15)
[2018-12-03] MEDS: CLOPIDOGREL 75MG TABLET PO SCH (08:17)
[2018-12-03] MEDS: ENOXAPARIN 30MG/0.3ML SYR SUBCUT SCH (08:17)
[2018-12-03] MEDS: METOPROLOL TARTRATE 25MG TABLET PO SCH ×2 (08:17→21:15)
[2018-12-03 09:48] LABS: CREATINE KINASE MB FRACTION 7.2 ng/mL (0.5-3.6)
[2018-12-03 09:48] LABS: PLATELET ESTIMATE NORMAL
[2018-12-03 10:19] LABS: PHOSPHORUS 8.1 mg/dL (2.5-4.9)
[2018-12-03] MEDS: ATORVASTATIN CALCIUM 40MG TABLET PO SCH (21:14)
[2018-12-03] MEDS: ZOLPIDEM TARTRATE 5MG TABLET PO PRN (21:15)
[2018-12-04] VITALS (15 sets, daily range): BP systolic 101–160; BP diastolic 37–104
[2018-12-04] MEDS: BLOOD SUGAR DIAGNOSTIC STRIP TEST SCH ×4 (06:08→20:34)
[2018-12-04] MEDS: INSULIN LISPRO 100 UNITS/ML SUBCUT SCH ×4 (06:08→20:37)
[2018-12-04 06:39] LABS: BASOPHILS % 0.6 % (0.0-2.0); EOSINOPHILS % 2.6 % (0.0-5.0); HEMATOCRIT. 31.3 % (36.0-48.0); HEMOGLOBIN. 10.1 g/dL (12.0-16.0); MEAN CORPUSCULAR HEMOGLOBIN 29.8 pg (28.0-32.0); MEAN CORPUSCULAR VOLUME 92.6 fL (81.0-99.0); MONOCYTES % 12.8 % (2.0-8.0); PLATELET 282 x1000/uL (130-400); RED BLOOD CELL COUNT 3.38 mill/uL (4.2-5.4); RED CELL DISTRIBUTION WIDTH 16.5 % (11.6-14.6)
[2018-12-04] MEDS: SEVELAMER CARBONATE 800 MG TABLET PO SCH ×3 (06:45→16:54)
[2018-12-04 07:07] LABS: CREATINE KINASE MB FRACTION 4.7 ng/mL (0.5-3.6)
[2018-12-04 07:19] LABS: PHOSPHORUS 8.2 mg/dL (2.5-4.9)
[2018-12-04] MEDS: FOLIC ACID/VITAMIN B COMP W-C TABLET PO SCH (09:01)
[2018-12-04] MEDS: FAMOTIDINE 20MG TABLET PO SCH (09:02)
[2018-12-04] MEDS: ENOXAPARIN 30MG/0.3ML SYR SUBCUT SCH (09:02)
[2018-12-04] MEDS: ASPIRIN 81MG EC TABLET PO SCH ×2 (09:05→17:21)
[2018-12-04] MEDS: AMLODIPINE 5MG TABLET PO SCH (12:15)
[2018-12-04] MEDS: METOPROLOL TARTRATE 25MG TABLET PO SCH ×2 (13:31→20:34)
[2018-12-04] MEDS: CLOPIDOGREL 75MG TABLET PO SCH (13:33)
[2018-12-04] MEDS: ATORVASTATIN CALCIUM 40MG TABLET PO SCH (20:34)
[2018-12-05] VITALS (11 sets, daily range): BP systolic 115–143; BP diastolic 59–88
[2018-12-05] MEDS: INSULIN LISPRO 100 UNITS/ML SUBCUT SCH ×4 (05:39→20:03)
[2018-12-05] MEDS: BLOOD SUGAR DIAGNOSTIC STRIP TEST SCH ×5 (06:53→20:02)
[2018-12-05] MEDS: SEVELAMER CARBONATE 800 MG TABLET PO SCH ×3 (07:20→17:49)
[2018-12-05 07:46] LABS: HEMATOCRIT 26.3 % (36.0-48.0); HEMOGLOBIN 8.6 g/dL (12.0-16.0); MEAN CORPUSCULAR VOLUME 92.2 fL (81.0-99.0); PLATELET 269 x1000/uL (130-400); RED BLOOD CELL COUNT 2.86 mill/uL (4.2-5.4); RED CELL DISTRIBUTION WIDTH 16.4 % (11.6-14.6)
[2018-12-05 07:48] LABS: BASOPHILS % 0.6 % (0.0-2.0); LYMPHOCYTES % 6.6 % (20.0-50.0); MEAN CORPUSCULAR HEMOGLOBIN 29.6 pg (28.0-32.0); MEAN CORPUSCULAR VOLUME 92.4 fL (81.0-99.0); MEAN PLATELET VOLUME 8.9 fl (7.4-10.4); MONOCYTES % 8.6 % (2.0-8.0); NEUTROPHILS % 82.2 % (40.0-76.0); PLATELET 262 x1000/uL (130-400); RED BLOOD CELL COUNT 2.83 mill/uL (4.2-5.4); RED CELL DISTRIBUTION WIDTH 16.3 % (11.6-14.6)
[2018-12-05 08:18] LABS: PHOSPHORUS 5.7 mg/dL (2.5-4.9)
[2018-12-05 08:23] LABS: HEMATOCRIT. 26.2 % (36.0-48.0); HEMOGLOBIN. 8.4 g/dL (12.0-16.0)
[2018-12-05] MEDS: FOLIC ACID/VITAMIN B COMP W-C TABLET PO SCH (08:34)
[2018-12-05] MEDS: AMLODIPINE 5MG TABLET PO SCH (08:34)
[2018-12-05] MEDS: FAMOTIDINE 20MG TABLET PO SCH (08:34)
[2018-12-05] MEDS: CLOPIDOGREL 75MG TABLET PO SCH (08:34)
[2018-12-05] MEDS: ASPIRIN 81MG EC TABLET PO SCH ×2 (08:34→17:49)
[2018-12-05] MEDS: ENOXAPARIN 30MG/0.3ML SYR SUBCUT SCH (08:35)
[2018-12-05] MEDS: METOPROLOL TARTRATE 25MG TABLET PO SCH ×2 (08:35→20:04)
[2018-12-05] MEDS: ATORVASTATIN CALCIUM 40MG TABLET PO SCH (20:04)
[2018-12-05] MEDS: ZOLPIDEM TARTRATE 5MG TABLET PO PRN (20:04)
[2018-12-06] VITALS (23 sets, daily range): BP systolic 59–143; BP diastolic 21–86
[2018-12-06] MEDS: INSULIN LISPRO 100 UNITS/ML SUBCUT SCH ×4 (05:44→20:53)
[2018-12-06] MEDS: SEVELAMER CARBONATE 800 MG TABLET PO SCH ×3 (07:20→17:46)
[2018-12-06 08:04] LABS: BASOPHILS % 0.5 % (0.0-2.0); EOSINOPHILS % 3.8 % (0.0-5.0); HEMATOCRIT. 25.6 % (36.0-48.0); HEMOGLOBIN. 8.3 g/dL (12.0-16.0); LYMPHOCYTES % 8.7 % (20.0-50.0); MEAN CORPUSCULAR VOLUME 92.6 fL (81.0-99.0); MEAN PLATELET VOLUME 8.7 fl (7.4-10.4); MONOCYTES % 11.2 % (2.0-8.0); NEUTROPHILS % 75.8 % (40.0-76.0); PLATELET 285 x1000/uL (130-400); RED BLOOD CELL COUNT 2.76 mill/uL (4.2-5.4); RED CELL DISTRIBUTION WIDTH 16.5 % (11.6-14.6)
[2018-12-06 08:43] LABS: PHOSPHORUS 6.8 mg/dL (2.5-4.9)
[2018-12-06] MEDS: FOLIC ACID/VITAMIN B COMP W-C TABLET PO SCH (09:00)
[2018-12-06] MEDS ORDERED: ALBUMIN HUMAN 25GM/100ML (25%) IV NR (09:15)
[2018-12-06] MEDS ORDERED: HETASTARCH/NORMAL SALINE 500 ML PLAST..BAG IV ONE (09:30)
[2018-12-06] MEDS ORDERED: HEPARIN SODIUM 1,000 UNIT/1ML VIAL IV NR (09:30)
[2018-12-06] MEDS ORDERED: MAGNESIUM/ALUMINUM HYDROXIDE/SIMETHICONE 30ML UDC PO PRN (10:00)
[2018-12-06] MEDS ORDERED: HETASTARCH/NORMAL SALINE 500 ML IV NR (10:00)
[2018-12-06] MEDS ORDERED: SODIUM CHLORIDE 0.9% 100 ML IV ONE (10:45)
[2018-12-06] MEDS ORDERED: SODIUM CHLORIDE 0.9% 500 ML IV ONE (11:00)
[2018-12-06] MEDS: BLOOD SUGAR DIAGNOSTIC STRIP TEST SCH ×3 (12:49→19:28)
[2018-12-06] MEDS: ASPIRIN 81MG EC TABLET PO SCH ×2 (12:53→17:47)
[2018-12-06] MEDS: CLOPIDOGREL 75MG TABLET PO SCH (12:53)
[2018-12-06] MEDS: DOCUSATE SODIUM 100MG CAPSULE PO PRN ×2 (12:53→17:47)
[2018-12-06] MEDS: FAMOTIDINE 20MG TABLET PO SCH (12:53)
[2018-12-06] MEDS: ENOXAPARIN 30MG/0.3ML SYR SUBCUT SCH (12:54)
[2018-12-06] MEDS: TRAMADOL 50MG TABLET PO PRN (17:49)
[2018-12-06] MEDS: EPOETIN ALFA 4000UNITS/ML VIAL SUBCUT SCH (20:52)
[2018-12-06] MEDS: ATORVASTATIN CALCIUM 40MG TABLET PO SCH (20:53)
[2018-12-06] MEDS: ACETAMINOPHEN 325MG TABLET PO PRN (23:50)
[2018-12-07] VITALS (10 sets, daily range): BP systolic 122–147; BP diastolic 60–81
[2018-12-07] MEDS: BLOOD SUGAR DIAGNOSTIC STRIP TEST SCH ×2 (05:41→11:05)
[2018-12-07] MEDS: INSULIN LISPRO 100 UNITS/ML SUBCUT SCH ×2 (05:50→11:34)
[2018-12-07 06:43] LABS: BASOPHILS % 0.5 % (0.0-2.0); EOSINOPHILS % 4.5 % (0.0-5.0); HEMATOCRIT. 24.4 % (36.0-48.0); HEMOGLOBIN. 7.9 g/dL (12.0-16.0); LYMPHOCYTES % 8.5 % (20.0-50.0); MEAN CORPUSCULAR HEMOGLOBIN 29.9 pg (28.0-32.0); MEAN CORPUSCULAR VOLUME 91.9 fL (81.0-99.0); MEAN PLATELET VOLUME 8.4 fl (7.4-10.4); MONOCYTES % 10.7 % (2.0-8.0); NEUTROPHILS % 75.8 % (40.0-76.0); PLATELET 256 x1000/uL (130-400); RED BLOOD CELL COUNT 2.65 mill/uL (4.2-5.4); RED CELL DISTRIBUTION WIDTH 16.1 % (11.6-14.6)
[2018-12-07] MEDS: FOLIC ACID/VITAMIN B COMP W-C TABLET PO SCH (08:34)
[2018-12-07] MEDS: FAMOTIDINE 20MG TABLET PO SCH (08:34)
[2018-12-07] MEDS: ASPIRIN 81MG EC TABLET PO SCH (08:34)
[2018-12-07] MEDS: CLOPIDOGREL 75MG TABLET PO SCH (08:34)
[2018-12-07] MEDS: DOCUSATE SODIUM 100MG CAPSULE PO PRN (08:34)
[2018-12-07] MEDS: SEVELAMER CARBONATE 800 MG TABLET PO SCH ×2 (08:34→11:33)
[2018-12-07] MEDS: ENOXAPARIN 30MG/0.3ML SYR SUBCUT SCH (08:35)
[2018-12-07] MEDS: ACETAMINOPHEN 325MG TABLET PO PRN (11:34)
== END 2018-12-07 14:12 | DRG 280 ==
LOC: ER 17:33 → 3WST 21:26 → EDBEDREQTM 21:30 → EDBEDREQSVC 21:30 → EDBEDREQ 21:30 → EDBEDREQSVC 22:04 → EDBEDREQTM 22:04 → EDBEDREQSVC 22:31 → ENRESERV 22:33
PROVIDERS: ADMIT Internal Medicine; ATTEND Internal Medicine
PROC: 5A1D70Z Performance of Urinary Filtration, Intermittent, Less than 6 Hours Per Day (ICD-10-PCS; principal; 2018-12-02)
PROC: 5A1D70Z Performance of Urinary Filtration, Intermittent, Less than 6 Hours Per Day (ICD-10-PCS; 2018-12-04)
PROC: 5A1D70Z Performance of Urinary Filtration, Intermittent, Less than 6 Hours Per Day (ICD-10-PCS; 2018-12-06)
DX: I21.4 Non-ST elevation (NSTEMI) myocardial infarction (principal); N18.6 End stage renal disease; I69.354 Hemiplegia and hemiparesis following cerebral infarction affecting left non-dominant side; N25.81 Secondary hyperparathyroidism of renal origin; I12.0 Hypertensive chronic kidney disease with stage 5 chronic kidney disease or end stage renal disease; E87.1 Hypo-osmolality and hyponatremia; E87.2 Acidosis; E87.5 Hyperkalemia; E87.70 Fluid overload, unspecified; E03.9 Hypothyroidism, unspecified; E78.00 Pure hypercholesterolemia, unspecified; E78.5 Hyperlipidemia, unspecified; I25.10 Atherosclerotic heart disease of native coronary artery without angina pectoris; I45.81 Long QT syndrome; I44.7 Left bundle-branch block, unspecified; K21.9 Gastro-esophageal reflux disease without esophagitis; E11.22 Type 2 diabetes mellitus with diabetic chronic kidney disease; D63.8 Anemia in other chronic diseases classified elsewhere; I08.0 Rheumatic disorders of both mitral and aortic valves; I27.20 Pulmonary hypertension, unspecified; F41.9 Anxiety disorder, unspecified; M19.90 Unspecified osteoarthritis, unspecified site; Z60.2 Problems related to living alone; D72.829 Elevated white blood cell count, unspecified; I95.9 Hypotension, unspecified; I44.30 Unspecified atrioventricular block; I25.2 Old myocardial infarction; Z83.3 Family history of diabetes mellitus; Z82.49 Family history of ischemic heart disease and other diseases of the circulatory system; Z79.4 Long term (current) use of insulin; Z87.891 Personal history of nicotine dependence; Z91.19 Patient's noncompliance with other medical treatment and regimen; Z95.5 Presence of coronary angioplasty implant and graft; Z99.2 Dependence on renal dialysis; Z88.8 Allergy status to other drugs, medicaments and biological substances; Z79.899 Other long term (current) drug therapy; Z79.82 Long term (current) use of aspirin
CPT/HCPCS: 36415; 71045; 74021; 80048; 80061; 82550; 82553; 82962; 83036; 83735; 84100; 84134; 84443; 84484; 85027; 93005; 93306; 93923; 93970; 96361; 96374; 96375; 97162; 97166; 97530; 97535; 99291; J0885; J1644; J1650; J1815; J2270; J2405; J3490; J7040; P9047

== ENCOUNTER 2018-12-07 14:53 | Inpatient (IN) | payer MEDICARE, MEDICAID ==
[~2018-12-07] VITALS: Ht 154.9 cm; Wt 77.1 kg
[2018-12-07] MEDS ORDERED: ONDANSETRON HCL 4MG/2ML INJ IV PRN (15:15)
[2018-12-07] MEDS ORDERED: NITROGLYCERIN 0.4MG TABLET SL SL PRN (15:15)
[2018-12-07] MEDS ORDERED: DEXTROSE 50% WATER 50ML SYRINGE IV PRN ×2 (15:15)
[2018-12-07] MEDS ORDERED: CLONIDINE 0.1MG TABLET PO PRN (15:15)
[2018-12-07] MEDS ORDERED: MAGNESIUM/ALUMINUM HYDROXIDE/SIMETHICONE 30ML UDC PO PRN (15:15)
[2018-12-07] MEDS ORDERED: IPRATROPIUM/ALBUTEROL 0.5-3(2.5)MG/3ML NEB HHN PRN (15:15)
[2018-12-07] MEDS ORDERED: GUAIFENESIN 200MG/10ML SUGAR FREE UDC PO PRN (15:15)
[2018-12-07 15:53] VITALS: BP 121/70
[2018-12-07 16:13] VITALS: BP 121/70
[2018-12-07] MEDS: ASPIRIN 81MG TABLET PO SCH (16:50)
[2018-12-07] MEDS: DOCUSATE SODIUM 100MG CAPSULE PO SCH (16:50)
[2018-12-07] MEDS: BLOOD SUGAR DIAGNOSTIC STRIP TEST SCH ×2 (16:54→20:46)
[2018-12-07] MEDS: INSULIN LISPRO 100 UNITS/ML SUBCUT SCH ×2 (16:55→20:46)
[2018-12-07] MEDS ORDERED: SEVELAMER CARBONATE 800 MG TABLET PO SCH (17:00)
[2018-12-07] MEDS ORDERED: SEVELAMER CARBONATE 800 MG TABLET PO NR (19:46)
[2018-12-07 20:00] VITALS: BP 155/61
[2018-12-07] MEDS: ATORVASTATIN CALCIUM 40MG TABLET PO SCH (20:30)
[2018-12-07] MEDS ORDERED: ATORVASTATIN CALCIUM 40MG TABLET PO SCH (21:00)
[2018-12-08] MEDS: BLOOD SUGAR DIAGNOSTIC STRIP TEST SCH (05:51)
[2018-12-08] MEDS: INSULIN LISPRO 100 UNITS/ML SUBCUT SCH (06:15)
[2018-12-08] MEDS: LEVOTHYROXINE SODIUM 25MCG TABLET PO SCH (06:18)
[2018-12-08 07:00] VITALS: BP 132/48
[2018-12-08 07:39] LABS: BASOPHILS % 0.6 % (0.0-2.0); EOSINOPHILS % 2.9 % (0.0-5.0); HEMATOCRIT. 25.1 % (36.0-48.0); HEMOGLOBIN. 8.1 g/dL (12.0-16.0); LYMPHOCYTES % 7.2 % (20.0-50.0); MEAN CORPUSCULAR HEMOGLOBIN 29.7 pg (28.0-32.0); MEAN CORPUSCULAR VOLUME 92.5 fL (81.0-99.0); MEAN PLATELET VOLUME 8.6 fl (7.4-10.4); MONOCYTES % 11.3 % (2.0-8.0); PLATELET 295 x1000/uL (130-400); RED BLOOD CELL COUNT 2.72 mill/uL (4.2-5.4); RED CELL DISTRIBUTION WIDTH 15.9 % (11.6-14.6)
[2018-12-08] MEDS: ACETAMINOPHEN 325MG TABLET PO PRN ×3 (07:50→20:32)
[2018-12-08] MEDS: ASPIRIN 81MG TABLET PO SCH ×2 (08:01→16:01)
[2018-12-08] MEDS: CLOPIDOGREL 75MG TABLET PO SCH (08:01)
[2018-12-08] MEDS: DOCUSATE SODIUM 100MG CAPSULE PO SCH ×2 (08:01→16:23)
[2018-12-08] MEDS: FOLIC ACID/VITAMIN B COMP W-C TABLET PO SCH (08:01)
[2018-12-08] MEDS: SEVELAMER CARBONATE 800 MG TABLET PO SCH ×3 (08:01→16:01)
[2018-12-08] MEDS: ENOXAPARIN 30MG/0.3ML SYR SUBCUT SCH (08:02)
[2018-12-08] MEDS ORDERED: FAMOTIDINE 20MG TABLET PO SCH (09:00)
[2018-12-08 09:38] LABS: PHOSPHORUS 5.5 mg/dL (2.5-4.9)
[2018-12-08] MEDS ORDERED: SODIUM POLYSTYRENE SULFONATE 15 G/60 ML BOT PO NR (11:00)
[2018-12-08] MEDS: METOCLOPRAMIDE HCL 5MG TABLET PO SCH ×3 (11:08→20:33)
[2018-12-08] MEDS: HYDRALAZINE HCL 50MG TABLET PO SCH ×2 (13:00→16:01)
[2018-12-08] MEDS: TRAMADOL 50MG TABLET PO PRN ×2 (16:01→22:22)
[2018-12-08 20:00] VITALS: BP 131/84
[2018-12-08] MEDS: ATORVASTATIN CALCIUM 40MG TABLET PO SCH (20:32)
[2018-12-09] MEDS: METOCLOPRAMIDE HCL 5MG TABLET PO SCH ×2 (06:02→17:00)
[2018-12-09] MEDS: LEVOTHYROXINE SODIUM 25MCG TABLET PO SCH (06:03)
[2018-12-09] MEDS: TRAMADOL 50MG TABLET PO PRN ×2 (08:01→14:42)
[2018-12-09 08:11] VITALS: BP 141/79
[2018-12-09 09:13] LABS: BASOPHILS % 0.7 % (0.0-2.0); EOSINOPHILS % 2.3 % (0.0-5.0); HEMATOCRIT. 25.9 % (36.0-48.0); HEMOGLOBIN. 8.3 g/dL (12.0-16.0); LYMPHOCYTES % 7.5 % (20.0-50.0); MEAN CORPUSCULAR HEMOGLOBIN 29.4 pg (28.0-32.0); MEAN CORPUSCULAR VOLUME 91.4 fL (81.0-99.0); MEAN PLATELET VOLUME 8.4 fl (7.4-10.4); MONOCYTES % 11.9 % (2.0-8.0); NEUTROPHILS % 77.6 % (40.0-76.0); PLATELET 313 x1000/uL (130-400); RED BLOOD CELL COUNT 2.83 mill/uL (4.2-5.4); RED CELL DISTRIBUTION WIDTH 15.8 % (11.6-14.6)
[2018-12-09 09:42] LABS: PHOSPHORUS 6.1 mg/dL (2.5-4.9)
[2018-12-09] MEDS: FOLIC ACID/VITAMIN B COMP W-C TABLET PO SCH (09:46)
[2018-12-09] MEDS: SEVELAMER CARBONATE 800 MG TABLET PO SCH ×3 (09:46→16:37)
[2018-12-09] MEDS: DOCUSATE SODIUM 100MG CAPSULE PO SCH ×2 (09:46→17:00)
[2018-12-09] MEDS: HYDRALAZINE HCL 50MG TABLET PO SCH ×3 (09:46→17:00)
[2018-12-09] MEDS: FAMOTIDINE 20MG TABLET PO SCH (09:48)
[2018-12-09] MEDS: CLOPIDOGREL 75MG TABLET PO SCH (09:48)
[2018-12-09] MEDS: ASPIRIN 81MG TABLET PO SCH ×2 (09:48→17:00)
[2018-12-09] MEDS: ENOXAPARIN 30MG/0.3ML SYR SUBCUT SCH (09:51)
[2018-12-09 20:00] VITALS: BP 128/55
[2018-12-09] MEDS ORDERED: AMITRIPTYLINE 25MG TABLET PO SCH (21:00)
[2018-12-09] MEDS: ATORVASTATIN CALCIUM 40MG TABLET PO SCH (21:47)
[2018-12-09] MEDS: PREGABALIN 50 MG CAPSULE PO SCH (21:47)
[2018-12-09] MEDS: EPOETIN ALFA 4000UNITS/ML VIAL SUBCUT SCH (21:48)
[2018-12-10] MEDS: LEVOTHYROXINE SODIUM 25MCG TABLET PO SCH (06:29)
[2018-12-10 07:22] LABS: HEMATOCRIT. 23.8 % (36.0-48.0); HEMOGLOBIN. 7.8 g/dL (12.0-16.0); MEAN CORPUSCULAR HEMOGLOBIN 29.9 pg (28.0-32.0); MEAN CORPUSCULAR VOLUME 90.8 fL (81.0-99.0); MEAN PLATELET VOLUME 8.4 fl (7.4-10.4); PLATELET 310 x1000/uL (130-400); RED BLOOD CELL COUNT 2.62 mill/uL (4.2-5.4); RED CELL DISTRIBUTION WIDTH 16.2 % (11.6-14.6)
[2018-12-10 08:00] VITALS: BP 133/76
[2018-12-10] MEDS: SEVELAMER CARBONATE 800 MG TABLET PO SCH ×3 (08:29→16:16)
[2018-12-10] MEDS: ASPIRIN 81MG TABLET PO SCH ×2 (08:29→16:16)
[2018-12-10] MEDS: FAMOTIDINE 20MG TABLET PO SCH (08:29)
[2018-12-10] MEDS: DOCUSATE SODIUM 100MG CAPSULE PO SCH ×2 (08:30→16:16)
[2018-12-10] MEDS: METOCLOPRAMIDE HCL 5MG TABLET PO SCH (08:30)
[2018-12-10] MEDS: FOLIC ACID/VITAMIN B COMP W-C TABLET PO SCH (08:31)
[2018-12-10] MEDS: PREGABALIN 50 MG CAPSULE PO SCH (08:31)
[2018-12-10] MEDS: HYDRALAZINE HCL 50MG TABLET PO SCH (08:31)
[2018-12-10] MEDS: CLOPIDOGREL 75MG TABLET PO SCH (08:31)
[2018-12-10] MEDS: ENOXAPARIN 30MG/0.3ML SYR SUBCUT SCH (08:32)
[2018-12-10] MEDS: CARVEDILOL 6.25 MG TABLET PO SCH ×2 (09:57→21:00)
[2018-12-10] MEDS: HYDRALAZINE HCL 25MG TABLET PO SCH ×2 (14:00→21:13)
[2018-12-10 19:33] LABS: PLATELET ESTIMATE NORMAL
[2018-12-10 20:00] VITALS: BP 102/40
[2018-12-10] MEDS ORDERED: LACTULOSE 20G/30ML UDC PO PRN (21:00)
[2018-12-10] MEDS: ATORVASTATIN CALCIUM 40MG TABLET PO SCH (21:13)
[2018-12-11] MEDS: HYDRALAZINE HCL 25MG TABLET PO SCH (05:36)
[2018-12-11] MEDS: LEVOTHYROXINE SODIUM 25MCG TABLET PO SCH (06:10)
[2018-12-11 07:21] LABS: HEMATOCRIT. 23.9 % (36.0-48.0); HEMOGLOBIN. 7.8 g/dL (12.0-16.0); MEAN CORPUSCULAR HEMOGLOBIN 29.5 pg (28.0-32.0); MEAN CORPUSCULAR VOLUME 90.4 fL (81.0-99.0); MEAN PLATELET VOLUME 7.9 fl (7.4-10.4); PLATELET 320 x1000/uL (130-400); RED BLOOD CELL COUNT 2.64 mill/uL (4.2-5.4); RED CELL DISTRIBUTION WIDTH 16.5 % (11.6-14.6)
[2018-12-11 07:42] LABS: PHOSPHORUS 5.9 mg/dL (2.5-4.9)
[2018-12-11 08:00] VITALS: BP 110/59
[2018-12-11] MEDS: DOCUSATE SODIUM 100MG CAPSULE PO SCH ×2 (08:32→17:24)
[2018-12-11] MEDS: CLOPIDOGREL 75MG TABLET PO SCH (08:32)
[2018-12-11] MEDS: SEVELAMER CARBONATE 800 MG TABLET PO SCH ×3 (08:32→17:24)
[2018-12-11] MEDS: FOLIC ACID/VITAMIN B COMP W-C TABLET PO SCH (08:32)
[2018-12-11] MEDS: FAMOTIDINE 20MG TABLET PO SCH (08:33)
[2018-12-11] MEDS: ASPIRIN 81MG TABLET PO SCH ×2 (08:33→17:24)
[2018-12-11] MEDS: ENOXAPARIN 30MG/0.3ML SYR SUBCUT SCH (08:33)
[2018-12-11] MEDS: CARVEDILOL 6.25 MG TABLET PO SCH (08:33)
[2018-12-11 09:57] LABS: PLATELET ESTIMATE NORMAL
[2018-12-11] MEDS: HYDROCODONE/ACETAMINOPHEN 5/325MG TABLET PO PRN ×2 (09:57→18:22)
[2018-12-11 20:00] VITALS: BP 148/81
[2018-12-11] MEDS: CARVEDILOL 3.125 MG TABLET PO SCH (21:00)
[2018-12-11] MEDS: EPOETIN ALFA 4000UNITS/ML VIAL SUBCUT SCH (22:01)
[2018-12-11] MEDS: PREGABALIN 50 MG CAPSULE PO SCH (22:01)
[2018-12-11] MEDS: ATORVASTATIN CALCIUM 40MG TABLET PO SCH (22:01)
[2018-12-11] MEDS: BISACODYL 5MG TABLET PO PRN (22:02)
[2018-12-12] MEDS: BISACODYL 5MG TABLET PO PRN (06:43)
[2018-12-12] MEDS: LEVOTHYROXINE SODIUM 25MCG TABLET PO SCH (06:43)
[2018-12-12 08:00] VITALS: BP 118/62
[2018-12-12] MEDS: PREGABALIN 50 MG CAPSULE PO SCH ×2 (08:29→20:08)
[2018-12-12] MEDS: FOLIC ACID/VITAMIN B COMP W-C TABLET PO SCH (08:29)
[2018-12-12] MEDS: ASPIRIN 81MG TABLET PO SCH ×2 (08:29→16:31)
[2018-12-12] MEDS: DOCUSATE SODIUM 100MG CAPSULE PO SCH ×2 (08:29→16:31)
[2018-12-12] MEDS: ENOXAPARIN 30MG/0.3ML SYR SUBCUT SCH (08:30)
[2018-12-12] MEDS: CLOPIDOGREL 75MG TABLET PO SCH (08:31)
[2018-12-12] MEDS: FAMOTIDINE 20MG TABLET PO SCH (08:31)
[2018-12-12] MEDS: CARVEDILOL 3.125 MG TABLET PO SCH ×2 (08:31→20:08)
[2018-12-12] MEDS: SEVELAMER CARBONATE 800 MG TABLET PO SCH ×3 (08:31→16:31)
[2018-12-12] MEDS: HYDROCODONE/ACETAMINOPHEN 5/325MG TABLET PO PRN (09:44)
[2018-12-12] MEDS: ACETAMINOPHEN 325MG TABLET PO PRN (13:44)
[2018-12-12 20:00] VITALS: BP 128/56
[2018-12-12] MEDS: ATORVASTATIN CALCIUM 40MG TABLET PO SCH (20:08)
[2018-12-13] MEDS: LEVOTHYROXINE SODIUM 25MCG TABLET PO SCH (06:23)
[2018-12-13 07:42] LABS: BASOPHILS % 0.5 % (0.0-2.0); EOSINOPHILS % 1.9 % (0.0-5.0); HEMOGLOBIN. 7.9 g/dL (12.0-16.0); LYMPHOCYTES % 10.6 % (20.0-50.0); MEAN CORPUSCULAR HEMOGLOBIN 29.3 pg (28.0-32.0); MEAN CORPUSCULAR VOLUME 93.1 fL (81.0-99.0); MEAN PLATELET VOLUME 7.9 fl (7.4-10.4); MONOCYTES % 14.2 % (2.0-8.0); NEUTROPHILS % 72.8 % (40.0-76.0); PLATELET 324 x1000/uL (130-400); RED BLOOD CELL COUNT 2.68 mill/uL (4.2-5.4); RED CELL DISTRIBUTION WIDTH 16.4 % (11.6-14.6)
[2018-12-13 08:03] VITALS: BP 129/61
[2018-12-13 08:03] LABS: PHOSPHORUS 4.2 mg/dL (2.5-4.9)
[2018-12-13] MEDS: FAMOTIDINE 20MG TABLET PO SCH (08:55)
[2018-12-13] MEDS: DOCUSATE SODIUM 100MG CAPSULE PO SCH ×2 (08:55→16:58)
[2018-12-13] MEDS: ENOXAPARIN 30MG/0.3ML SYR SUBCUT SCH (08:55)
[2018-12-13] MEDS: CLOPIDOGREL 75MG TABLET PO SCH (08:55)
[2018-12-13] MEDS: ASPIRIN 81MG TABLET PO SCH ×2 (08:55→16:58)
[2018-12-13] MEDS: FOLIC ACID/VITAMIN B COMP W-C TABLET PO SCH (08:55)
[2018-12-13] MEDS: SEVELAMER CARBONATE 800 MG TABLET PO SCH ×3 (08:55→16:58)
[2018-12-13] MEDS: PREGABALIN 50 MG CAPSULE PO SCH (08:55)
[2018-12-13] MEDS: CARVEDILOL 3.125 MG TABLET PO SCH ×2 (09:00→21:00)
[2018-12-13] MEDS: HYDROCODONE/ACETAMINOPHEN 5/325MG TABLET PO PRN (17:07)
[2018-12-13 20:00] VITALS: BP 123/62
[2018-12-13] MEDS: ATORVASTATIN CALCIUM 40MG TABLET PO SCH (21:33)
[2018-12-14] MEDS: HYDROCODONE/ACETAMINOPHEN 5/325MG TABLET PO PRN ×2 (01:53→08:47)
[2018-12-14] MEDS: EPOETIN ALFA 4000UNITS/ML VIAL SUBCUT SCH (05:21)
[2018-12-14] MEDS: LEVOTHYROXINE SODIUM 25MCG TABLET PO SCH (06:49)
[2018-12-14 08:12] VITALS: BP 125/56
[2018-12-14] MEDS: CARVEDILOL 3.125 MG TABLET PO SCH ×2 (08:47→23:06)
[2018-12-14] MEDS: FOLIC ACID/VITAMIN B COMP W-C TABLET PO SCH (08:47)
[2018-12-14] MEDS: FAMOTIDINE 20MG TABLET PO SCH (08:47)
[2018-12-14] MEDS: SEVELAMER CARBONATE 800 MG TABLET PO SCH ×3 (08:47→17:38)
[2018-12-14] MEDS: DOCUSATE SODIUM 100MG CAPSULE PO SCH ×2 (08:47→16:58)
[2018-12-14] MEDS: CLOPIDOGREL 75MG TABLET PO SCH (08:47)
[2018-12-14] MEDS: ASPIRIN 81MG TABLET PO SCH ×2 (08:47→16:58)
[2018-12-14] MEDS: ENOXAPARIN 30MG/0.3ML SYR SUBCUT SCH (08:48)
[2018-12-14 20:00] VITALS: BP 118/64
[2018-12-14] MEDS: ATORVASTATIN CALCIUM 40MG TABLET PO SCH (23:05)
[2018-12-14] MEDS: ACETAMINOPHEN 325MG TABLET PO PRN (23:06)
[2018-12-15] MEDS: LEVOTHYROXINE SODIUM 25MCG TABLET PO SCH (06:08)
[2018-12-15 08:04] VITALS: BP 127/62
[2018-12-15] MEDS: DOCUSATE SODIUM 100MG CAPSULE PO SCH ×2 (08:35→16:23)
[2018-12-15] MEDS: FAMOTIDINE 20MG TABLET PO SCH (08:35)
[2018-12-15] MEDS: ENOXAPARIN 30MG/0.3ML SYR SUBCUT SCH (08:36)
[2018-12-15] MEDS: FOLIC ACID/VITAMIN B COMP W-C TABLET PO SCH (08:36)
[2018-12-15] MEDS: ASPIRIN 81MG TABLET PO SCH ×2 (08:36→16:23)
[2018-12-15] MEDS: SEVELAMER CARBONATE 800 MG TABLET PO SCH ×3 (08:36→17:25)
[2018-12-15] MEDS: CLOPIDOGREL 75MG TABLET PO SCH (08:36)
[2018-12-15] MEDS: CARVEDILOL 3.125 MG TABLET PO SCH ×2 (08:49→21:12)
[2018-12-15] MEDS: HYDROCODONE/ACETAMINOPHEN 5/325MG TABLET PO PRN ×2 (12:32→16:32)
[2018-12-15 20:00] VITALS: BP 148/72
[2018-12-15] MEDS: ATORVASTATIN CALCIUM 40MG TABLET PO SCH (21:11)
[2018-12-16] MEDS: LEVOTHYROXINE SODIUM 25MCG TABLET PO SCH (06:00)
[2018-12-16 07:27] LABS: BASOPHILS % 0.8 % (0.0-2.0); HEMATOCRIT. 22.2 % (36.0-48.0); HEMOGLOBIN. 7.3 g/dL (12.0-16.0); LYMPHOCYTES % 9.2 % (20.0-50.0); MEAN CORPUSCULAR HEMOGLOBIN 30.2 pg (28.0-32.0); MEAN CORPUSCULAR VOLUME 91.4 fL (81.0-99.0); MEAN PLATELET VOLUME 7.9 fl (7.4-10.4); MONOCYTES % 11.8 % (2.0-8.0); NEUTROPHILS % 75.2 % (40.0-76.0); PLATELET 319 x1000/uL (130-400); RED BLOOD CELL COUNT 2.42 mill/uL (4.2-5.4); RED CELL DISTRIBUTION WIDTH 15.7 % (11.6-14.6)
[2018-12-16] MEDS: CARVEDILOL 3.125 MG TABLET PO SCH ×2 (07:47→21:00)
[2018-12-16] MEDS: ASPIRIN 81MG TABLET PO SCH ×2 (07:47→07:49)
[2018-12-16] MEDS: ENOXAPARIN 30MG/0.3ML SYR SUBCUT SCH (07:47)
[2018-12-16 07:52] VITALS: BP 114/90
[2018-12-16 07:54] LABS: PHOSPHORUS 3.7 mg/dL (2.5-4.9)
[2018-12-16 08:07] VITALS: BP 131/93
[2018-12-16] MEDS: FOLIC ACID/VITAMIN B COMP W-C TABLET PO SCH (09:42)
[2018-12-16] MEDS: CLOPIDOGREL 75MG TABLET PO SCH (09:42)
[2018-12-16] MEDS: DOCUSATE SODIUM 100MG CAPSULE PO SCH ×2 (09:42→16:20)
[2018-12-16] MEDS: FAMOTIDINE 20MG TABLET PO SCH (09:42)
[2018-12-16] MEDS: SEVELAMER CARBONATE 800 MG TABLET PO SCH ×3 (09:42→16:20)
[2018-12-16 20:00] VITALS: BP 119/39
[2018-12-16] MEDS ORDERED: EPOETIN ALFA 4000UNITS/ML VIAL SUBCUT SCH (21:00)
[2018-12-16 21:18] VITALS: BP 130/70
[2018-12-16] MEDS ORDERED: HEPARIN SODIUM 1,000 UNIT/1ML VIAL IV NR (21:45)
[2018-12-17] MEDS: ATORVASTATIN CALCIUM 40MG TABLET PO SCH (00:57)
[2018-12-17] MEDS: LEVOTHYROXINE SODIUM 25MCG TABLET PO SCH (06:08)
[2018-12-17 08:00] VITALS: BP 141/59
[2018-12-17] MEDS: FAMOTIDINE 20MG TABLET PO SCH (09:20)
[2018-12-17] MEDS: DOCUSATE SODIUM 100MG CAPSULE PO SCH (09:20)
[2018-12-17] MEDS: SEVELAMER CARBONATE 800 MG TABLET PO SCH ×2 (09:20→11:46)
[2018-12-17] MEDS: ASPIRIN 81MG TABLET PO SCH (09:20)
[2018-12-17] MEDS: CARVEDILOL 3.125 MG TABLET PO SCH (09:20)
[2018-12-17] MEDS: CLOPIDOGREL 75MG TABLET PO SCH (09:20)
[2018-12-17] MEDS: ENOXAPARIN 30MG/0.3ML SYR SUBCUT SCH (09:20)
[2018-12-17] MEDS: FOLIC ACID/VITAMIN B COMP W-C TABLET PO SCH (09:21)
[2018-12-17 11:08] VITALS: BP 141/59
== END 2018-12-17 13:25 | DRG 291 ==
PROVIDERS: ADMIT Psychiatry & Neurology Neurology; ATTEND Internal Medicine
PROC: 5A1D70Z Performance of Urinary Filtration, Intermittent, Less than 6 Hours Per Day (ICD-10-PCS; principal; 2018-12-08)
PROC: 5A1D70Z Performance of Urinary Filtration, Intermittent, Less than 6 Hours Per Day (ICD-10-PCS; 2018-12-11)
PROC: 5A1D70Z Performance of Urinary Filtration, Intermittent, Less than 6 Hours Per Day (ICD-10-PCS; 2018-12-13)
PROC: 5A1D70Z Performance of Urinary Filtration, Intermittent, Less than 6 Hours Per Day (ICD-10-PCS; 2018-12-16)
DX: I13.2 Hypertensive heart and chronic kidney disease with heart failure and with stage 5 chronic kidney disease, or end stage renal disease (principal); N18.6 End stage renal disease; E87.2 Acidosis; E87.1 Hypo-osmolality and hyponatremia; I25.10 Atherosclerotic heart disease of native coronary artery without angina pectoris; D64.9 Anemia, unspecified; I50.9 Heart failure, unspecified; E11.22 Type 2 diabetes mellitus with diabetic chronic kidney disease; D72.829 Elevated white blood cell count, unspecified; E03.9 Hypothyroidism, unspecified; E11.42 Type 2 diabetes mellitus with diabetic polyneuropathy; E11.51 Type 2 diabetes mellitus with diabetic peripheral angiopathy without gangrene; E78.5 Hyperlipidemia, unspecified; E87.5 Hyperkalemia; I35.0 Nonrheumatic aortic (valve) stenosis; I44.30 Unspecified atrioventricular block; I44.7 Left bundle-branch block, unspecified; I87.2 Venous insufficiency (chronic) (peripheral); K21.9 Gastro-esophageal reflux disease without esophagitis; D63.8 Anemia in other chronic diseases classified elsewhere; E83.51 Hypocalcemia; F32.9 Major depressive disorder, single episode, unspecified; R53.81 Other malaise; Z91.14 Patient's other noncompliance with medication regimen; Z79.4 Long term (current) use of insulin; I25.2 Old myocardial infarction; Z99.2 Dependence on renal dialysis; Z86.73 Personal history of transient ischemic attack (TIA), and cerebral infarction without residual deficits; Z91.19 Patient's noncompliance with other medical treatment and regimen; Z95.5 Presence of coronary angioplasty implant and graft
CPT/HCPCS: 36415; 73630; 80048; 82270; 82962; 83735; 84100; 85044; 92523; 97110; 97112; 97116; 97150; 97162; 97167; 97530; 97535; A6261; J0885; J1644; J1650; J2405; J8597

== ENCOUNTER 2019-01-21 00:33 | Inpatient (IN) | payer MEDICARE, MEDICAID ==
[~2019-01-21] VITALS: Ht 154.9 cm; Wt 71.0 kg
[2019-01-21] MEDS ORDERED: SODIUM CHLORIDE 0.9% 1,000 ML IV ONE (01:12)
[2019-01-21 01:46] LABS: BASOPHILS % 0.5 % (0.0-2.0); EOSINOPHILS % 4.3 % (0.0-5.0); HEMATOCRIT. 26.1 % (36.0-48.0); HEMOGLOBIN. 8.4 g/dL (12.0-16.0); LYMPHOCYTES % 11.3 % (20.0-50.0); MEAN CORPUSCULAR HEMOGLOBIN 27.6 pg (28.0-32.0); MEAN CORPUSCULAR VOLUME 85.8 fL (81.0-99.0); NEUTROPHILS % 74.9 % (40.0-76.0); PLATELET 357 x1000/uL (130-400); RED BLOOD CELL COUNT 3.04 mill/uL (4.2-5.4); RED CELL DISTRIBUTION WIDTH 17.1 % (11.6-14.6)
[2019-01-21 01:54] LABS: INR 1.2
[2019-01-21 01:56] LABS: CHLORIDE 98 mEq/L (98-107)
[2019-01-21] MEDS ORDERED: PIPERACILLIN/TAZ 3.375G PREMIX 50 ML IV ONE (02:45)
[2019-01-21] MEDS ORDERED: VANCOMYCIN 1 G PREMIX 200 ML IV ONE (02:45)
[2019-01-21] MEDS ORDERED: DEXTROSE 50% WATER 50ML SYRINGE IV PRN (07:15)
[2019-01-21] MEDS ORDERED: TRAMADOL 50MG TABLET PO PRN (07:15)
[2019-01-21] MEDS ORDERED: GUAIFENESIN 200MG/10ML SUGAR FREE UDC PO PRN (07:15)
[2019-01-21] MEDS ORDERED: ONDANSETRON HCL 4MG/2ML INJ IV PRN ×2 (07:15→15:15)
[2019-01-21] MEDS ORDERED: PIPERACILLIN/TAZ 3.375G PREMIX 50 ML IV SCH (07:15)
[2019-01-21] MEDS ORDERED: MAGNESIUM/ALUMINUM HYDROXIDE/SIMETHICONE 30ML UDC PO PRN (07:15)
[2019-01-21] MEDS ORDERED: ZOLPIDEM TARTRATE 5MG TABLET PO PRN (07:15)
[2019-01-21] MEDS ORDERED: CLONIDINE 0.1MG TABLET PO PRN (07:15)
[2019-01-21] MEDS ORDERED: IPRATROPIUM/ALBUTEROL 0.5-3(2.5)MG/3ML NEB INH PRN (07:15)
[2019-01-21] MEDS ORDERED: DOCUSATE SODIUM 100MG CAPSULE PO PRN (07:15)
[2019-01-21] MEDS ORDERED: NITROGLYCERIN 0.4MG TABLET SL SL PRN (07:15)
[2019-01-21] MEDS ORDERED: LEVOTHYROXINE SODIUM 112MCG TABLET PO SCH (07:50)
[2019-01-21] MEDS: INSULIN LISPRO 100 UNITS/ML SUBCUT SCH ×4 (08:20→23:38)
[2019-01-21 09:00] VITALS: BP 104/46
[2019-01-21] MEDS: FOLIC ACID/VITAMIN B COMP W-C TABLET PO SCH (09:00)
[2019-01-21] MEDS: BLOOD SUGAR DIAGNOSTIC STRIP TEST SCH ×4 (09:00→22:27)
[2019-01-21] MEDS: CLOPIDOGREL 75MG TABLET PO SCH (09:00)
[2019-01-21] MEDS: DEXT 5%/0.45% NACL 1000ML 1,000 ML IV SCH ×2 (10:43→23:35)
[2019-01-21 10:50] VITALS: BP 88/37
[2019-01-21] MEDS: ENOXAPARIN 30MG/0.3ML SYR SUBCUT SCH (11:00)
[2019-01-21] MEDS ORDERED: PIPERACILLIN/TAZOBACTAM 2.25 G in DEXT 5% WATER 100 ML IV SCH (11:00)
[2019-01-21 11:13] VITALS: BP 102/63
[2019-01-21] MEDS ORDERED: VANCOMYCIN 1500MG in DEXTROSE 5% WATER 250ML IV NR (12:00)
[2019-01-21] MEDS: PIPERACILLIN/TAZOBACTAM 2.25 G in DEXT 5% WATER 100 ML IV SCH ×2 (12:39→19:00)
[2019-01-21] MEDS: PANTOPRAZOLE SODIUM 40 MG/VIAL IV SCH (12:39)
[2019-01-21] MEDS: SEVELAMER CARBONATE 800 MG TABLET PO SCH ×2 (12:40→17:40)
[2019-01-21] MEDS ORDERED: BACITRACIN 15GM TUBE TOP ONE (13:34)
[2019-01-21] MEDS ORDERED: LIDOCAINE HCL 1% 20ML VIAL (Pyxis) INJ ONE ×2 (13:34→13:56)
[2019-01-21] MEDS ORDERED: BUPIVACAINE HCL 0.5% (5MG/ML) 50ML ONE (13:35)
[2019-01-21] MEDS ORDERED: THROMBIN (BOVINE) 5000 UNITS/VIAL TOP ONE ×2 (13:35→13:56)
[2019-01-21] MEDS ORDERED: HEPARIN SODIUM 1,000 UNIT/1ML VIAL IV ONE ×3 (13:35→16:23)
[2019-01-21] MEDS ORDERED: BACITRACIN 50,000 UNITS/VIAL ONE (13:35)
[2019-01-21] MEDS ORDERED: HEPARIN 5000 UNITS/ML VIAL ONE (13:36)
[2019-01-21] MEDS ORDERED: BUPIVACAINE HCL/PF 0.5% (5MG/ML) 10ML ONE (13:58)
[2019-01-21] MEDS ORDERED: MORPHINE SULFATE/PF 1MG/ML 10ML AMP ONE (14:06)
[2019-01-21] MEDS ORDERED: BUPIVACAINE HCL/DEXTROSE/PF 0.75% 2ML AMP INJ ONE (14:15)
[2019-01-21] MEDS ORDERED: MIDAZOLAM HCL 2 MG/2 ML VIAL ONE (14:19)
[2019-01-21] MEDS ORDERED: PROPOFOL 200MG/20ML VIAL IV ONE (14:19)
[2019-01-21] MEDS ORDERED: FENTANYL CITRATE/PF 50MCG/ML 2ML VIAL ONE (14:19)
[2019-01-21] MEDS ORDERED: LABETALOL 5MG/ML SYR 20 MG/4 ML SYRINGE IV PRN (15:15)
[2019-01-21] MEDS ORDERED: MEPERIDINE HCL/PF 25MG/ML CPJ IV PRN (15:15)
[2019-01-21] MEDS ORDERED: HYDROMORPHONE HCL/PF 2MG/ML CPJ IV PRN (15:15)
[2019-01-21] MEDS ORDERED: PAPAVERINE HCL 30 MG/ML 2ML IV ONE (15:20)
[2019-01-21] MEDS ORDERED: ONDANSETRON HCL 4MG/2ML INJ ONE (15:25)
[2019-01-21] MEDS ORDERED: DEXAMETHASONE 4MG/ML 1ML VIAL ONE (15:25)
[2019-01-21] MEDS: CARVEDILOL 3.125 MG TABLET PO SCH (18:00)
[2019-01-21 20:33] LABS: CHLORIDE 101 mEq/L (98-107)
[2019-01-21 20:39] LABS: PHOSPHORUS 4.9 mg/dL (2.5-4.9)
[2019-01-21 22:00] VITALS: BP 97/58
[2019-01-21] MEDS ORDERED: ONDANSETRON INJ IV PRN (22:00)
[2019-01-21] MEDS ORDERED: NALOXONE INJ IV PRN (22:00)
[2019-01-21] MEDS ORDERED: HYDROMORPHONE PCA 10MG/50ML IV PRN (22:00)
[2019-01-21 22:27] VITALS: BP 94/59
[2019-01-21] MEDS: ATORVASTATIN CALCIUM 10MG TABLET PO SCH (22:27)
[2019-01-21 23:00] VITALS: BP 93/60
[2019-01-22] VITALS (34 sets, daily range): BP systolic 70–102; BP diastolic 33–78
[2019-01-22] MEDS: PIPERACILLIN/TAZOBACTAM 2.25 G in DEXT 5% WATER 100 ML IV SCH (03:56)
[2019-01-22 05:22] LABS: HEMATOCRIT. 22.2 % (36.0-48.0); HEMOGLOBIN. 7.2 g/dL (12.0-16.0); MEAN CORPUSCULAR VOLUME 86.7 fL (81.0-99.0); MEAN PLATELET VOLUME 8.4 fl (7.4-10.4); PLATELET 292 x1000/uL (130-400); RED BLOOD CELL COUNT 2.56 mill/uL (4.2-5.4); RED CELL DISTRIBUTION WIDTH 16.2 % (11.6-14.6)
[2019-01-22] MEDS: CARVEDILOL 3.125 MG TABLET PO SCH ×2 (05:31→17:37)
[2019-01-22] MEDS: LEVOTHYROXINE SODIUM 50MCG TABLET PO SCH (05:31)
[2019-01-22] MEDS: BLOOD SUGAR DIAGNOSTIC STRIP TEST SCH ×4 (05:31→21:48)
[2019-01-22 05:34] LABS: CHLORIDE 99 mEq/L (98-107)
[2019-01-22 05:40] LABS: PHOSPHORUS 5.5 mg/dL (2.5-4.9)
[2019-01-22] MEDS ORDERED: LIDOCAINE HCL 1% 20ML VIAL (Pyxis) INJ ONE (07:19)
[2019-01-22] MEDS: SEVELAMER CARBONATE 800 MG TABLET PO SCH ×3 (07:20→17:48)
[2019-01-22] MEDS ORDERED: BACITRACIN 50,000 UNITS/VIAL ONE (07:20)
[2019-01-22] MEDS ORDERED: BUPIVACAINE HCL/PF 0.5% (5MG/ML) 10ML ONE (07:20)
[2019-01-22] MEDS: INSULIN LISPRO 100 UNITS/ML SUBCUT SCH ×4 (07:20→21:00)
[2019-01-22] MEDS ORDERED: PROPOFOL 200MG/20ML VIAL IV ONE (07:45)
[2019-01-22] MEDS ORDERED: MIDAZOLAM HCL 2 MG/2 ML VIAL ONE (07:45)
[2019-01-22] MEDS ORDERED: SODIUM CHLORIDE 0.9% 1,000 ML IV SCH (08:54)
[2019-01-22] MEDS ORDERED: ONDANSETRON HCL 4MG/2ML INJ IV PRN (09:00)
[2019-01-22] MEDS ORDERED: HYDROMORPHONE HCL/PF 2MG/ML CPJ IV PRN (09:00)
[2019-01-22] MEDS: ACETAMINOPHEN 325MG TABLET PO PRN (09:44)
[2019-01-22] MEDS ORDERED: PIPERACILLIN/TAZOBACTAM 2.25 G in DEXTROSE 5% WATER 50 ML IV SCH (10:45)
[2019-01-22 10:52] LABS: PLATELET ESTIMATE NORMAL
[2019-01-22] MEDS: CLOPIDOGREL 75MG TABLET PO SCH (12:54)
[2019-01-22] MEDS: ENOXAPARIN 30MG/0.3ML SYR SUBCUT SCH (12:54)
[2019-01-22] MEDS: FOLIC ACID/VITAMIN B COMP W-C TABLET PO SCH (12:55)
[2019-01-22] MEDS: PANTOPRAZOLE SODIUM 40 MG/VIAL IV SCH (12:55)
[2019-01-22] MEDS: PIPERACILLIN/TAZOBACTAM 2.25 G in DEXTROSE 5% WATER 50 ML IV SCH (17:45)
[2019-01-22] MEDS ORDERED: LORAZEPAM 2MG/ML CPJ IV PRN (21:00)
[2019-01-22] MEDS: ATORVASTATIN CALCIUM 10MG TABLET PO SCH (22:02)
[2019-01-23] VITALS (35 sets, daily range): BP systolic 64–129; BP diastolic 28–75
[2019-01-23] MEDS: MORPHINE SULFATE 2 MG/ML CPJ (NOT FOR IM USE) IV PRN ×2 (01:05→14:28)
[2019-01-23] MEDS: PIPERACILLIN/TAZOBACTAM 2.25 G in DEXTROSE 5% WATER 50 ML IV SCH ×3 (02:12→18:16)
[2019-01-23] MEDS: CARVEDILOL 3.125 MG TABLET PO SCH ×2 (06:00→18:00)
[2019-01-23] MEDS: DEXT 5%/0.45% NACL 1000ML 1,000 ML IV SCH (06:06)
[2019-01-23] MEDS: LEVOTHYROXINE SODIUM 50MCG TABLET PO SCH (06:06)
[2019-01-23] MEDS: BLOOD SUGAR DIAGNOSTIC STRIP TEST SCH ×4 (06:11→21:00)
[2019-01-23] MEDS: INSULIN LISPRO 100 UNITS/ML SUBCUT SCH ×4 (07:20→21:00)
[2019-01-23] MEDS: SEVELAMER CARBONATE 800 MG TABLET PO SCH ×3 (09:16→18:22)
[2019-01-23] MEDS: FOLIC ACID/VITAMIN B COMP W-C TABLET PO SCH (09:16)
[2019-01-23] MEDS: CLOPIDOGREL 75MG TABLET PO SCH (09:16)
[2019-01-23] MEDS: FAMOTIDINE 20MG TABLET PO SCH (09:16)
[2019-01-23 09:52] LABS: HEMATOCRIT. 25.2 % (36.0-48.0); HEMOGLOBIN. 8.2 g/dL (12.0-16.0); MEAN CORPUSCULAR HEMOGLOBIN 28.6 pg (28.0-32.0); MEAN CORPUSCULAR VOLUME 87.8 fL (81.0-99.0); MEAN PLATELET VOLUME 8.5 fl (7.4-10.4); PLATELET 260 x1000/uL (130-400); RED BLOOD CELL COUNT 2.86 mill/uL (4.2-5.4); RED CELL DISTRIBUTION WIDTH 15.8 % (11.6-14.6)
[2019-01-23 11:53] LABS: CHLORIDE 102 mEq/L (98-107)
[2019-01-23 11:58] LABS: PHOSPHORUS 3.1 mg/dL (2.5-4.9)
[2019-01-23] MEDS: ENOXAPARIN 30MG/0.3ML SYR SUBCUT SCH (13:04)
[2019-01-23 14:28] LABS: PLATELET ESTIMATE NORMAL
[2019-01-23] MEDS: ATORVASTATIN CALCIUM 40MG TABLET PO SCH (21:26)
[2019-01-24] VITALS (34 sets, daily range): BP systolic 93–147; BP diastolic 60–106
[2019-01-24] MEDS: PIPERACILLIN/TAZOBACTAM 2.25 G in DEXTROSE 5% WATER 50 ML IV SCH ×3 (01:59→17:45)
[2019-01-24] MEDS: DEXT 5%/0.45% NACL 1000ML 1,000 ML IV SCH (05:07)
[2019-01-24] MEDS: CARVEDILOL 3.125 MG TABLET PO SCH ×2 (06:09→17:46)
[2019-01-24] MEDS: LEVOTHYROXINE SODIUM 50MCG TABLET PO SCH (06:09)
[2019-01-24 06:27] LABS: BASOPHILS % 0.7 % (0.0-2.0); EOSINOPHILS % 3.5 % (0.0-5.0); HEMATOCRIT. 23.9 % (36.0-48.0); HEMOGLOBIN. 7.8 g/dL (12.0-16.0); LYMPHOCYTES % 10.2 % (20.0-50.0); MEAN CORPUSCULAR HEMOGLOBIN 28.8 pg (28.0-32.0); MEAN CORPUSCULAR VOLUME 88.1 fL (81.0-99.0); MEAN PLATELET VOLUME 8.7 fl (7.4-10.4); MONOCYTES % 11.6 % (2.0-8.0); PLATELET 274 x1000/uL (130-400); RED BLOOD CELL COUNT 2.71 mill/uL (4.2-5.4); RED CELL DISTRIBUTION WIDTH 16.2 % (11.6-14.6)
[2019-01-24] MEDS: BLOOD SUGAR DIAGNOSTIC STRIP TEST SCH ×4 (06:28→21:33)
[2019-01-24] MEDS: INSULIN LISPRO 100 UNITS/ML SUBCUT SCH ×4 (06:29→21:00)
[2019-01-24 06:35] LABS: CHLORIDE 102 mEq/L (98-107)
[2019-01-24 06:49] LABS: PHOSPHORUS 3.6 mg/dL (2.5-4.9)
[2019-01-24] MEDS: FAMOTIDINE 20MG TABLET PO SCH (08:24)
[2019-01-24] MEDS: FOLIC ACID/VITAMIN B COMP W-C TABLET PO SCH (08:24)
[2019-01-24] MEDS: CLOPIDOGREL 75MG TABLET PO SCH (08:24)
[2019-01-24] MEDS: SEVELAMER CARBONATE 800 MG TABLET PO SCH ×3 (08:24→17:46)
[2019-01-24] MEDS: ENOXAPARIN 30MG/0.3ML SYR SUBCUT SCH (08:25)
[2019-01-24] MEDS ORDERED: HEPARIN SODIUM 1,000 UNIT/1ML VIAL IV NR (09:15)
[2019-01-24] MEDS ORDERED: SORBITOL 70% SOLN 30ML PO NR (12:00)
[2019-01-24] MEDS ORDERED: BISACODYL 10MG SUPP PR PRN ×2 (12:00)
[2019-01-24] MEDS ORDERED: TRAMADOL 50MG TABLET PO PRN (12:00)
[2019-01-24] MEDS ORDERED: LACTULOSE 20G/30ML UDC PO PRN (12:00)
[2019-01-24] MEDS ORDERED: EPOETIN ALFA 10000UNITS/ML VIAL SUBCUT SCH (21:00)
[2019-01-24] MEDS: ATORVASTATIN CALCIUM 40MG TABLET PO SCH (21:36)
[2019-01-24] MEDS: ACETAMINOPHEN 325MG TABLET PO PRN (22:44)
[2019-01-24] MEDS: TRAMADOL 50MG TABLET PO PRN (23:37)
[2019-01-25] VITALS (23 sets, daily range): BP systolic 104–133; BP diastolic 53–107
[2019-01-25] MEDS: PIPERACILLIN/TAZOBACTAM 2.25 G in DEXTROSE 5% WATER 50 ML IV SCH ×3 (03:03→17:32)
[2019-01-25] MEDS: LEVOTHYROXINE SODIUM 50MCG TABLET PO SCH (06:29)
[2019-01-25] MEDS: CARVEDILOL 3.125 MG TABLET PO SCH ×2 (06:29→17:33)
[2019-01-25] MEDS: BLOOD SUGAR DIAGNOSTIC STRIP TEST SCH ×4 (06:29→21:26)
[2019-01-25] MEDS: SEVELAMER CARBONATE 800 MG TABLET PO SCH ×3 (06:29→17:32)
[2019-01-25 06:45] LABS: BASOPHILS % 0.8 % (0.0-2.0); EOSINOPHILS % 3.4 % (0.0-5.0); HEMATOCRIT. 22.7 % (36.0-48.0); HEMOGLOBIN. 7.3 g/dL (12.0-16.0); LYMPHOCYTES % 8.9 % (20.0-50.0); MEAN CORPUSCULAR HEMOGLOBIN 28.3 pg (28.0-32.0); MEAN CORPUSCULAR VOLUME 88.2 fL (81.0-99.0); MEAN PLATELET VOLUME 8.3 fl (7.4-10.4); MONOCYTES % 10.5 % (2.0-8.0); NEUTROPHILS % 76.4 % (40.0-76.0); PLATELET 300 x1000/uL (130-400); RED BLOOD CELL COUNT 2.57 mill/uL (4.2-5.4); RED CELL DISTRIBUTION WIDTH 16.4 % (11.6-14.6)
[2019-01-25 07:15] LABS: CHLORIDE 107 mEq/L (98-107)
[2019-01-25] MEDS: INSULIN LISPRO 100 UNITS/ML SUBCUT SCH ×4 (07:20→21:26)
[2019-01-25] MEDS: FOLIC ACID/VITAMIN B COMP W-C TABLET PO SCH (08:02)
[2019-01-25] MEDS: FAMOTIDINE 20MG TABLET PO SCH (08:02)
[2019-01-25] MEDS: CLOPIDOGREL 75MG TABLET PO SCH (08:03)
[2019-01-25] MEDS: TRAMADOL 50MG TABLET PO PRN ×2 (08:03→17:30)
[2019-01-25] MEDS: ENOXAPARIN 30MG/0.3ML SYR SUBCUT SCH (08:03)
[2019-01-25] MEDS: ACETAMINOPHEN 325MG TABLET PO PRN (12:57)
[2019-01-25] MEDS: ATORVASTATIN CALCIUM 40MG TABLET PO SCH (21:25)
[2019-01-26] VITALS (10 sets, daily range): BP systolic 110–147; BP diastolic 57–91
[2019-01-26] MEDS: PIPERACILLIN/TAZOBACTAM 2.25 G in DEXTROSE 5% WATER 50 ML IV SCH ×2 (01:32→09:32)
[2019-01-26] MEDS: LEVOTHYROXINE SODIUM 50MCG TABLET PO SCH (06:37)
[2019-01-26] MEDS: CARVEDILOL 3.125 MG TABLET PO SCH (06:38)
[2019-01-26] MEDS: BLOOD SUGAR DIAGNOSTIC STRIP TEST SCH ×3 (06:38→17:15)
[2019-01-26] MEDS: INSULIN LISPRO 100 UNITS/ML SUBCUT SCH ×2 (07:20→11:34)
[2019-01-26 07:22] LABS: BASOPHILS % 0.7 % (0.0-2.0); EOSINOPHILS % 4.3 % (0.0-5.0); HEMATOCRIT. 22.4 % (36.0-48.0); HEMOGLOBIN. 7.2 g/dL (12.0-16.0); LYMPHOCYTES % 8.6 % (20.0-50.0); MEAN CORPUSCULAR HEMOGLOBIN 28.2 pg (28.0-32.0); MEAN CORPUSCULAR VOLUME 88.5 fL (81.0-99.0); MEAN PLATELET VOLUME 8.3 fl (7.4-10.4); NEUTROPHILS % 78.4 % (40.0-76.0); PLATELET 299 x1000/uL (130-400); RED BLOOD CELL COUNT 2.53 mill/uL (4.2-5.4); RED CELL DISTRIBUTION WIDTH 17.2 % (11.6-14.6)
[2019-01-26 07:56] LABS: CHLORIDE 106 mEq/L (98-107)
[2019-01-26] MEDS: CLOPIDOGREL 75MG TABLET PO SCH (08:08)
[2019-01-26] MEDS: FAMOTIDINE 20MG TABLET PO SCH (08:08)
[2019-01-26] MEDS: FOLIC ACID/VITAMIN B COMP W-C TABLET PO SCH (08:08)
[2019-01-26] MEDS: ENOXAPARIN 30MG/0.3ML SYR SUBCUT SCH (08:08)
[2019-01-26] MEDS: SEVELAMER CARBONATE 800 MG TABLET PO SCH ×2 (08:08→11:56)
[2019-01-26 08:28] LABS: VITAMIN B12 SERUM 1306 pg/mL (211-911)
[2019-01-26] MEDS: TRAMADOL 50MG TABLET PO PRN ×2 (09:32→15:48)
[2019-01-27] MEDS ORDERED: LEVOFLOXACIN 250MG TABLET PO SCH (14:00)
== END 2019-01-26 19:01 | DRG 252 ==
LOC: ER 01:03 → 8WST 02:36 → EDBEDREQ 02:39 → EDBEDREQTM 02:39 → SUPCPDRO 07:02 → ENRESERV 08:11 → 3WST 21:09
PROVIDERS: ADMIT Internal Medicine; ATTEND Internal Medicine
PROC: 04WY07Z Revision of Autologous Tissue Substitute in Lower Artery, Open Approach (ICD-10-PCS; principal; 2019-01-21)
PROC: 041M09Q Bypass Right Popliteal Artery to Lower Extremity Artery with Autologous Venous Tissue, Open Approach (ICD-10-PCS; 2019-01-21)
PROC: 30233N1 Transfusion of Nonautologous Red Blood Cells into Peripheral Vein, Percutaneous Approach (ICD-10-PCS; 2019-01-21)
PROC: 5A1D70Z Performance of Urinary Filtration, Intermittent, Less than 6 Hours Per Day (ICD-10-PCS; 2019-01-21)
PROC: 06BP0ZZ Excision of Right Saphenous Vein, Open Approach (ICD-10-PCS; 2019-01-21)
PROC: B41F1ZZ Fluoroscopy of Right Lower Extremity Arteries using Low Osmolar Contrast (ICD-10-PCS; 2019-01-21)
PROC: 0Y6P0Z0 Detachment at Right 1st Toe, Complete, Open Approach (ICD-10-PCS; 2019-01-22)
PROC: 5A1D70Z Performance of Urinary Filtration, Intermittent, Less than 6 Hours Per Day (ICD-10-PCS; 2019-01-23)
PROC: 5A1D70Z Performance of Urinary Filtration, Intermittent, Less than 6 Hours Per Day (ICD-10-PCS; 2019-01-26)
DX: E11.52 Type 2 diabetes mellitus with diabetic peripheral angiopathy with gangrene (principal); N18.6 End stage renal disease; I12.0 Hypertensive chronic kidney disease with stage 5 chronic kidney disease or end stage renal disease; E44.1 Mild protein-calorie malnutrition; M86.8X7 Other osteomyelitis, ankle and foot; L03.115 Cellulitis of right lower limb; E11.69 Type 2 diabetes mellitus with other specified complication; E03.9 Hypothyroidism, unspecified; E11.42 Type 2 diabetes mellitus with diabetic polyneuropathy; E78.00 Pure hypercholesterolemia, unspecified; E78.5 Hyperlipidemia, unspecified; I25.10 Atherosclerotic heart disease of native coronary artery without angina pectoris; I27.20 Pulmonary hypertension, unspecified; I70.201 Unspecified atherosclerosis of native arteries of extremities, right leg; K21.9 Gastro-esophageal reflux disease without esophagitis; I87.2 Venous insufficiency (chronic) (peripheral); D63.8 Anemia in other chronic diseases classified elsewhere; E11.22 Type 2 diabetes mellitus with diabetic chronic kidney disease; I08.0 Rheumatic disorders of both mitral and aortic valves; K59.00 Constipation, unspecified; I25.2 Old myocardial infarction; Z99.2 Dependence on renal dialysis; Z82.49 Family history of ischemic heart disease and other diseases of the circulatory system; Z83.3 Family history of diabetes mellitus; Z86.73 Personal history of transient ischemic attack (TIA), and cerebral infarction without residual deficits; Z87.891 Personal history of nicotine dependence; Z88.8 Allergy status to other drugs, medicaments and biological substances; Z79.82 Long term (current) use of aspirin; Z68.29 Body mass index [BMI] 29.0-29.9, adult
CPT/HCPCS: 36415; 71045; 73630; 80048; 80061; 80202; 82140; 82607; 82962; 83036; 83605; 83735; 84100; 84443; 84484; 86850; 86900; 86920; 87070; 87075; 87077; 87186; 88305; 88311; 93005; 96374; 97162; 97166; 99285; C9113; J0885; J1100; J1644; J1650; J1815; J2060; J2250; J2270; J2274; J2405; J2440; J2543; J2704; J3010; J3370; J3490; J7030; J7060; P9016

== ENCOUNTER 2019-03-06 05:03 | Day surgery (SDC) | payer MEDICARE, MEDICAID ==
[~2019-03-06] VITALS: Ht 154.9 cm; Wt 58.1 kg
[2019-03-06] MEDS ORDERED: BACITRACIN 15GM TUBE TOP ONE (06:58)
[2019-03-06] MEDS ORDERED: PAPAVERINE HCL 30 MG/ML 2ML IV ONE (06:58)
[2019-03-06] MEDS ORDERED: THROMBIN (BOVINE) 5000 UNITS/VIAL TOP ONE (06:59)
[2019-03-06] MEDS ORDERED: HEPARIN SODIUM 1,000 UNIT/1ML VIAL IV ONE (06:59)
[2019-03-06] MEDS ORDERED: LIDOCAINE HCL 1% 20ML VIAL (Pyxis) INJ ONE (06:59)
[2019-03-06] MEDS ORDERED: BUPIVACAINE HCL/PF 0.5% (5MG/ML) 10ML ONE (06:59)
[2019-03-06] MEDS ORDERED: BACITRACIN 50,000 UNITS/VIAL ONE (07:00)
[2019-03-06 07:01] LABS: INR 1.1; PARTIAL THROMBOPLASTIN TIME 26.8 sec (23.4-31.0); PROTHROMBIN TIME 11.5 sec (9.6-11.0)
[2019-03-06] MEDS ORDERED: SODIUM CHLORIDE 0.9% 500 ML IV ONE (07:15)
[2019-03-06] MEDS ORDERED: MIDAZOLAM HCL 2 MG/2 ML VIAL ONE ×2 (07:31→07:52)
[2019-03-06] MEDS ORDERED: PROPOFOL 200MG/20ML VIAL IV ONE ×3 (07:31→09:39)
[2019-03-06] MEDS ORDERED: SUCCINYLCHOLINE CHLORIDE 200MG/10ML IV ONE (07:31)
[2019-03-06] MEDS ORDERED: FENTANYL CITRATE/PF 50MCG/ML 2ML VIAL ONE (07:31)
[2019-03-06] MEDS ORDERED: GLYCOPYRROLATE 0.2 MG/ML 2ML VIAL ONE (07:31)
[2019-03-06] MEDS ORDERED: LIDOCAINE HCL/PF 1% 10 MG/ML 5ML VIAL ONE (07:31)
[2019-03-06] MEDS ORDERED: METOCLOPRAMIDE HCL 10MG/2ML VIAL ONE (07:31)
[2019-03-06] MEDS ORDERED: ONDANSETRON HCL 4MG/2ML INJ ONE (07:31)
[2019-03-06] MEDS ORDERED: TOPUD PO (07:35)
[2019-03-06] MEDS ORDERED: SENN8.6T21 PO (07:35)
[2019-03-06] MEDS ORDERED: TRAM50TA3 PO (07:35)
[2019-03-06] MEDS ORDERED: NEPVIT PO (07:35)
[2019-03-06] MEDS ORDERED: ASCO-339 PO (07:35)
[2019-03-06] MEDS ORDERED: LACT10SO7 MT (07:35)
[2019-03-06] MEDS ORDERED: CLON0.1T PO (07:35)
[2019-03-06] MEDS ORDERED: ATOR40TA70 PO (07:35)
[2019-03-06] MEDS ORDERED: LEVO50TA8 PO (07:35)
[2019-03-06] MEDS ORDERED: SEVE800T25 PO (07:35)
[2019-03-06] MEDS ORDERED: NITR0.4T49 SL (07:35)
[2019-03-06] MEDS ORDERED: CLOP75TA4 PO (07:35)
[2019-03-06] MEDS ORDERED: ASPI-1393 PO (07:35)
[2019-03-06] MEDS ORDERED: ACET-2708 PO (07:35)
[2019-03-06] MEDS ORDERED: ROPIVACAINE HCL 10MG/ML 20 ML VIAL EPI ONE (07:36)
[2019-03-06] MEDS ORDERED: HYDROCODONE/ACETAMINOPHEN 5/325MG TABLET PO PRN ×2 (09:45)
[2019-03-06] MEDS ORDERED: SODIUM CHLORIDE 0.9% 1,000 ML IV ONE (09:47)
[2019-03-06] MEDS ORDERED: MORPHINE SULFATE 2 MG/ML CPJ (NOT FOR IM USE) IV PRN (10:00)
[2019-03-06] MEDS ORDERED: HYDROMORPHONE HCL/PF 2MG/ML CPJ IV PRN (10:00)
[2019-03-06] MEDS ORDERED: ONDANSETRON HCL 4MG/2ML INJ IV PRN (10:00)
[2019-03-06] MEDS ORDERED: HEPARIN SODIUM 1,000 UNIT/1ML VIAL IV NR (11:15)
[2019-03-06] MEDS ORDERED: SODIUM CHLORIDE 0.9% INJ 3ML FLUSH IVF SCH (14:00)
== END 2019-03-06 11:45 | disposition home or self-care (01) ==
LOC: OR 05:03
PROVIDERS: ATTEND Surgery Vascular Surgery
DX: I13.2 Hypertensive heart and chronic kidney disease with heart failure and with stage 5 chronic kidney disease, or end stage renal disease (principal); I50.9 Heart failure, unspecified; E11.22 Type 2 diabetes mellitus with diabetic chronic kidney disease; E11.52 Type 2 diabetes mellitus with diabetic peripheral angiopathy with gangrene; N18.6 End stage renal disease; I70.261 Atherosclerosis of native arteries of extremities with gangrene, right leg; I25.2 Old myocardial infarction; E03.9 Hypothyroidism, unspecified; K21.9 Gastro-esophageal reflux disease without esophagitis; I25.10 Atherosclerotic heart disease of native coronary artery without angina pectoris; E78.00 Pure hypercholesterolemia, unspecified; Z95.5 Presence of coronary angioplasty implant and graft; Z99.2 Dependence on renal dialysis; Z79.82 Long term (current) use of aspirin; Z79.4 Long term (current) use of insulin; Z79.899 Other long term (current) drug therapy; Z87.891 Personal history of nicotine dependence; Z83.3 Family history of diabetes mellitus; Z82.49 Family history of ischemic heart disease and other diseases of the circulatory system
CPT/HCPCS: 36415; 36819; 82962; 84132; 85610; 85730; J1644; J2250; J2440; J2704; J2795; J3010; J3490; J7040; A4565; J0330; J2405; J2765

== ENCOUNTER 2019-04-01 11:14 | Emergency (ER) | payer MEDICARE, MEDICAID ==
[~2019-04-01] VITALS: Ht 152.4 cm; Wt 76.7 kg
[2019-04-01] VITALS (13 sets, daily range): BP systolic 112–139; BP diastolic 50–61
[~2019-04-01 11:14] MED LIST changes: +ACET-2708 PO; +ASCO-339 PO; +ASPI-1393 PO; -ASPI-986 PO; -ATOR-2 PO; +ATOR40TA70 PO; +CLON0.1T PO; -CLOP75TA33 PO; +CLOP75TA4 PO; -DOCU-267 PO; -FURO20TA4 PO; -HYDR-4134 PO; -HYDR-523 PO; -INSU3INS6 SUBCUT; +LACT10SO7 MT; -LEVO25TA7 PO; +LEVO50TA8 PO; +NEPVIT PO; +NITR0.4T49 SL; -ROPI0.5T PO; +SENN8.6T21 PO; +SEVE800T25 PO; +TOPUD PO; +TRAM50TA3 PO
[2019-04-01 12:04] LABS: CHLORIDE 102 mEq/L (98-107)
[2019-04-01 12:20] LABS: INR 1.2; PARTIAL THROMBOPLASTIN TIME 24.7 sec (23.4-31.0); PROTHROMBIN TIME 12.3 sec (9.6-11.0)
[2019-04-01 12:42] LABS: BASOPHILS % 0.9 % (0.0-2.0); HEMATOCRIT. 29.7 % (36.0-48.0); HEMOGLOBIN. 9.4 g/dL (12.0-16.0); LYMPHOCYTES % 15.6 % (20.0-50.0); MEAN CORPUSCULAR VOLUME 85.2 fL (81.0-99.0); MEAN PLATELET VOLUME 7.4 fl (7.4-10.4); MONOCYTES % 10.1 % (2.0-8.0); NEUTROPHILS % 65.4 % (40.0-76.0); PLATELET 468 x1000/uL (130-400); RED BLOOD CELL COUNT 3.48 mill/uL (4.2-5.4); RED CELL DISTRIBUTION WIDTH 18.2 % (11.6-14.6)
[2019-04-01] MEDS ORDERED: SODIUM BICARBONATE 4% (2.4MEQ) 5ML VIAL IV ONE ×2 (13:19→13:30)
[2019-04-01] MEDS ORDERED: CEFAZOLIN 1000MG PREMIX 50 ML IV ONE ×2 (13:30→13:35)
[2019-04-01] MEDS ORDERED: LIDOCAINE HCL 1% 20ML VIAL (Pyxis) INJ ONE (13:31)
[2019-04-01] MEDS ORDERED: FENTANYL CITRATE/PF 50MCG/ML 2ML VIAL ONE (13:35)
[2019-04-01] MEDS ORDERED: FENTANYL CITRATE/PF 50MCG/ML 2ML VIAL IV ONE (13:46)
== END 2019-04-01 16:45 ==
LOC: ER 11:14
DX: T82.41XA Breakdown (mechanical) of vascular dialysis catheter, initial encounter (principal); Y84.1 Kidney dialysis as the cause of abnormal reaction of the patient, or of later complication, without mention of misadventure at the time of the procedure; Y92.89 Other specified places as the place of occurrence of the external cause; I12.0 Hypertensive chronic kidney disease with stage 5 chronic kidney disease or end stage renal disease; E11.22 Type 2 diabetes mellitus with diabetic chronic kidney disease; N18.6 End stage renal disease; Z99.2 Dependence on renal dialysis; I73.9 Peripheral vascular disease, unspecified; E78.00 Pure hypercholesterolemia, unspecified; E03.9 Hypothyroidism, unspecified; K21.9 Gastro-esophageal reflux disease without esophagitis; Z79.4 Long term (current) use of insulin; Z88.8 Allergy status to other drugs, medicaments and biological substances; Z86.73 Personal history of transient ischemic attack (TIA), and cerebral infarction without residual deficits
CPT/HCPCS: 36415; 36581; 71045; 77001; 80053; 85025; 85610; 85730; 93005; 96365; 96375; 99284; C1750; C1769; J0690; J1642; J3010; J3490; 99152; 99153; G0500

== ENCOUNTER 2019-09-01 20:42 | Inpatient (IN) | payer MEDICARE, MEDICAID ==
[~2019-09-01] VITALS: Ht 154.9 cm; Wt 57.6 kg
[~2019-09-01 20:42] MED LIST changes: -ASPI-1393 PO; +ASPI-1497 PO
[2019-09-01] MEDS ORDERED: ACETAMINOPHEN 325MG TABLET PO STA (21:13)
[2019-09-01] MEDS ORDERED: PIPERACILLIN/TAZ 3.375G PREMIX 50 ML IV ONE (21:15)
[2019-09-01] MEDS ORDERED: VANCOMYCIN 1 G PREMIX 200 ML IV ONE (21:15)
[2019-09-01] MEDS ORDERED: ACETAMINOPHEN 650MG SUPP PR ONE (21:30)
[2019-09-01 21:35] LABS: HEMATOCRIT. 33.1 % (36.0-48.0); HEMOGLOBIN. 10.7 g/dL (12.0-16.0); MEAN CORPUSCULAR HEMOGLOBIN 27.7 pg (28.0-32.0); MEAN CORPUSCULAR VOLUME 85.9 fL (81.0-99.0); MEAN PLATELET VOLUME 8.3 fl (7.4-10.4); PLATELET 552 x1000/uL (130-400); RED BLOOD CELL COUNT 3.86 mill/uL (4.2-5.4)
[2019-09-01 21:42] LABS: CHLORIDE 93 mEq/L (98-107)
[2019-09-01 21:44] LABS: INR 1.1; PROTHROMBIN TIME 12.4 sec (9.6-11.0)
[2019-09-01 21:50] LABS: PLATELET ESTIMATE INCREASED
[2019-09-01] MEDS ORDERED: SODIUM CHLORIDE 0.9% 500 ML IV ONE (22:00)
[2019-09-01] MEDS ORDERED: AZITHROMYCIN 500 MG in DEXT 5% WATER 250 ML IV STA (22:30)
[2019-09-02 02:10] VITALS: BP 121/68
[2019-09-02] MEDS ORDERED: ONDANSETRON HCL 4MG/2ML INJ IV PRN (02:45)
[2019-09-02] MEDS ORDERED: CLONIDINE 0.1MG TABLET PO PRN (02:45)
[2019-09-02] MEDS ORDERED: ENOXAPARIN 40MG/0.4ML SYR SUBCUT SCH (02:45)
[2019-09-02] MEDS ORDERED: PIPERACILLIN/TAZ 3.375G PREMIX 50 ML IV SCH (02:45)
[2019-09-02] MEDS ORDERED: DOCUSATE SODIUM 100MG CAPSULE PO PRN (02:45)
[2019-09-02] MEDS ORDERED: GUAIFENESIN 200MG/10ML SUGAR FREE UDC PO PRN (02:45)
[2019-09-02] MEDS: SODIUM CHLORIDE 0.45% 1,000 ML IV SCH ×2 (03:25→18:28)
[2019-09-02] MEDS ORDERED: MAGNESIUM/ALUMINUM HYDROXIDE/SIMETHICONE 30ML UDC PO PRN (04:00)
[2019-09-02] MEDS ORDERED: DEXTROSE 50% WATER 50ML SYRINGE IV PRN (04:30)
[2019-09-02] MEDS ORDERED: PIPERACILLIN/TAZOBACTAM 2.25 G in DEXTROSE 5% WATER 50 ML IV SCH (06:00)
[2019-09-02] MEDS: INSULIN LISPRO 100 UNITS/ML SUBCUT SCH ×4 (06:18→21:00)
[2019-09-02] MEDS: BLOOD SUGAR DIAGNOSTIC STRIP TEST SCH ×4 (06:18→21:17)
[2019-09-02 08:00] VITALS: BP 107/50
[2019-09-02] MEDS: MULTIVITAMINS,THER W-MINERALS TABLET PO SCH (08:09)
[2019-09-02] MEDS: ENOXAPARIN 30MG/0.3ML SYR SUBCUT SCH (08:10)
[2019-09-02 12:00] VITALS: BP 112/82
[2019-09-02] MEDS: LEVOTHYROXINE SODIUM 50MCG TABLET PO SCH (13:14)
[2019-09-02] MEDS: ASCORBIC ACID 500 MG TABLET PO SCH (13:14)
[2019-09-02] MEDS: FAMOTIDINE 20MG TABLET PO SCH (13:14)
[2019-09-02] MEDS: CLOPIDOGREL 75MG TABLET PO SCH (13:14)
[2019-09-02 16:00] VITALS: BP 117/50
[2019-09-02] MEDS: PIPERACILLIN/TAZOBACTAM 2.25 G in DEXTROSE 5% WATER 50 ML IV SCH (18:28)
[2019-09-02 20:00] VITALS: BP 116/55
[2019-09-02] MEDS: METOPROLOL TARTRATE 50MG TABLET PO SCH (21:17)
[2019-09-02] MEDS: ATORVASTATIN CALCIUM 40MG TABLET PO SCH (21:17)
[2019-09-02] MEDS: ACETAMINOPHEN 325MG TABLET PO PRN (21:25)
[2019-09-03] VITALS: BP 98/47
[2019-09-03 04:00] VITALS: BP 145/59
[2019-09-03] MEDS: PIPERACILLIN/TAZOBACTAM 2.25 G in DEXTROSE 5% WATER 50 ML IV SCH ×2 (05:21→17:11)
[2019-09-03] MEDS: BLOOD SUGAR DIAGNOSTIC STRIP TEST SCH ×4 (05:42→21:10)
[2019-09-03] MEDS: LEVOTHYROXINE SODIUM 50MCG TABLET PO SCH (05:42)
[2019-09-03] MEDS: INSULIN LISPRO 100 UNITS/ML SUBCUT SCH ×4 (06:25→21:11)
[2019-09-03 08:00] VITALS: BP 127/59
[2019-09-03] MEDS: MULTIVITAMINS,THER W-MINERALS TABLET PO SCH (08:28)
[2019-09-03] MEDS: FAMOTIDINE 20MG TABLET PO SCH (08:28)
[2019-09-03] MEDS: CLOPIDOGREL 75MG TABLET PO SCH (08:28)
[2019-09-03] MEDS: ASCORBIC ACID 500 MG TABLET PO SCH (08:28)
[2019-09-03] MEDS: ENOXAPARIN 30MG/0.3ML SYR SUBCUT SCH (08:29)
[2019-09-03] MEDS: METOPROLOL TARTRATE 50MG TABLET PO SCH ×2 (08:48→21:00)
[2019-09-03] MEDS: SODIUM CHLORIDE 0.45% 1,000 ML IV SCH (11:30)
[2019-09-03 12:00] VITALS: BP 116/41
[2019-09-03] MEDS: FOLIC ACID/VITAMIN B COMP W-C TABLET PO SCH (14:28)
[2019-09-03 16:00] VITALS: BP 114/50
[2019-09-03 20:00] VITALS: BP 106/52
[2019-09-03] MEDS: ATORVASTATIN CALCIUM 40MG TABLET PO SCH (21:11)
[2019-09-03] MEDS ORDERED: VANCOMYCIN 1 G PREMIX 200 ML IV SCH (22:00)
[2019-09-03] MEDS ORDERED: VANCOMYCIN 500 MG PREMIX 100 ML IV SCH (22:00)
[2019-09-04] VITALS: BP 142/60
[2019-09-04 01:20] LABS: HEMATOCRIT. 28.6 % (36.0-48.0); HEMOGLOBIN. 9.3 g/dL (12.0-16.0); MEAN CORPUSCULAR HEMOGLOBIN 26.9 pg (28.0-32.0); MEAN CORPUSCULAR VOLUME 82.8 fL (81.0-99.0); MEAN PLATELET VOLUME 7.7 fl (7.4-10.4); PLATELET 557 x1000/uL (130-400); RED BLOOD CELL COUNT 3.46 mill/uL (4.2-5.4); RED CELL DISTRIBUTION WIDTH 20.4 % (11.6-14.6)
[2019-09-04 01:23] LABS: CHLORIDE 92 mEq/L (98-107)
[2019-09-04 01:29] LABS: PHOSPHORUS 3.1 mg/dL (2.5-4.9)
[2019-09-04] MEDS: HYDROCODONE/ACETAMINOPHEN 5/325MG TABLET PO PRN ×3 (01:59→23:06)
[2019-09-04 04:00] VITALS: BP 115/60
[2019-09-04] MEDS: PIPERACILLIN/TAZOBACTAM 2.25 G in DEXTROSE 5% WATER 50 ML IV SCH ×2 (05:59→17:59)
[2019-09-04] MEDS: LEVOTHYROXINE SODIUM 50MCG TABLET PO SCH (06:41)
[2019-09-04] MEDS: BLOOD SUGAR DIAGNOSTIC STRIP TEST SCH ×4 (06:42→21:20)
[2019-09-04] MEDS: ENOXAPARIN 30MG/0.3ML SYR SUBCUT SCH (07:35)
[2019-09-04] MEDS: INSULIN LISPRO 100 UNITS/ML SUBCUT SCH ×4 (07:38→21:00)
[2019-09-04 08:00] VITALS: BP 133/72
[2019-09-04] MEDS: ASCORBIC ACID 500 MG TABLET PO SCH (08:59)
[2019-09-04] MEDS: FAMOTIDINE 20MG TABLET PO SCH (08:59)
[2019-09-04] MEDS: FOLIC ACID/VITAMIN B COMP W-C TABLET PO SCH (08:59)
[2019-09-04] MEDS: CLOPIDOGREL 75MG TABLET PO SCH (09:00)
[2019-09-04] MEDS: METOPROLOL TARTRATE 50MG TABLET PO SCH ×2 (09:05→21:13)
[2019-09-04 12:00] VITALS: BP 119/49
[2019-09-04 12:03] LABS: NUCLEATED RED BLOOD CELLS 1 /100 WBC; PLATELET ESTIMATE INCREASED
[2019-09-04 16:00] VITALS: BP 119/55
[2019-09-04 20:00] VITALS: BP 122/64
[2019-09-04] MEDS: ATORVASTATIN CALCIUM 40MG TABLET PO SCH (21:13)
[2019-09-04] MEDS: ACETAMINOPHEN 325MG TABLET PO PRN (23:47)
[2019-09-05] VITALS (7 sets, daily range): BP systolic 83–209; BP diastolic 46–79
[2019-09-05] MEDS: PIPERACILLIN/TAZOBACTAM 2.25 G in DEXTROSE 5% WATER 50 ML IV SCH ×2 (05:07→20:27)
[2019-09-05] MEDS: HYDROCODONE/ACETAMINOPHEN 5/325MG TABLET PO PRN (05:20)
[2019-09-05] MEDS: BLOOD SUGAR DIAGNOSTIC STRIP TEST SCH ×4 (06:48→21:52)
[2019-09-05 06:55] LABS: INR 1.2; PROTHROMBIN TIME 13.4 sec (9.6-11.0)
[2019-09-05 07:03] LABS: HEMATOCRIT. 28.8 % (36.0-48.0); HEMOGLOBIN. 9.5 g/dL (12.0-16.0); MEAN CORPUSCULAR HEMOGLOBIN 27.1 pg (28.0-32.0); MEAN CORPUSCULAR VOLUME 82.4 fL (81.0-99.0); MEAN PLATELET VOLUME 7.9 fl (7.4-10.4); PLATELET 595 x1000/uL (130-400); RED BLOOD CELL COUNT 3.49 mill/uL (4.2-5.4); RED CELL DISTRIBUTION WIDTH 20.7 % (11.6-14.6)
[2019-09-05 07:08] LABS: PHOSPHORUS 4.1 mg/dL (2.5-4.9)
[2019-09-05] MEDS: INSULIN LISPRO 100 UNITS/ML SUBCUT SCH ×4 (07:56→21:00)
[2019-09-05] MEDS: CLOPIDOGREL 75MG TABLET PO SCH (08:15)
[2019-09-05] MEDS: METOPROLOL TARTRATE 50MG TABLET PO SCH ×2 (08:15→21:00)
[2019-09-05] MEDS: ASCORBIC ACID 500 MG TABLET PO SCH (08:15)
[2019-09-05] MEDS: FOLIC ACID/VITAMIN B COMP W-C TABLET PO SCH (08:15)
[2019-09-05] MEDS: FAMOTIDINE 20MG TABLET PO SCH (08:15)
[2019-09-05] MEDS: LEVOTHYROXINE SODIUM 50MCG TABLET PO SCH (08:17)
[2019-09-05] MEDS: ENOXAPARIN 30MG/0.3ML SYR SUBCUT SCH (08:20)
[2019-09-05] MEDS ORDERED: VANCOMYCIN 500 MG PREMIX 100 ML IV SCH (21:00)
[2019-09-05] MEDS: ATORVASTATIN CALCIUM 40MG TABLET PO SCH (22:09)
[2019-09-05] MEDS: EPOETIN ALFA 4000UNITS/ML VIAL SUBCUT SCH (22:12)
[2019-09-05] MEDS: ACETAMINOPHEN 325MG TABLET PO PRN (22:14)
[2019-09-05 22:59] LABS: PLATELET ESTIMATE INCREASED
[2019-09-06 00:31] VITALS: BP 122/62
[2019-09-06] MEDS: HYDROCODONE/ACETAMINOPHEN 5/325MG TABLET PO PRN (01:16)
[2019-09-06 04:00] VITALS: BP 109/48
[2019-09-06 06:06] LABS: HEMATOCRIT. 32.3 % (36.0-48.0); HEMOGLOBIN. 10.4 g/dL (12.0-16.0); MEAN CORPUSCULAR HEMOGLOBIN 27.1 pg (28.0-32.0); MEAN CORPUSCULAR VOLUME 84.4 fL (81.0-99.0); MEAN PLATELET VOLUME 7.7 fl (7.4-10.4); PLATELET 576 x1000/uL (130-400); RED BLOOD CELL COUNT 3.83 mill/uL (4.2-5.4); RED CELL DISTRIBUTION WIDTH 20.6 % (11.6-14.6)
[2019-09-06 06:23] LABS: CHLORIDE 98 mEq/L (98-107)
[2019-09-06 06:37] LABS: PHOSPHORUS 2.7 mg/dL (2.5-4.9)
[2019-09-06] MEDS: BLOOD SUGAR DIAGNOSTIC STRIP TEST SCH ×4 (06:46→21:15)
[2019-09-06 08:00] VITALS: BP 120/82
[2019-09-06] MEDS: LEVOTHYROXINE SODIUM 50MCG TABLET PO SCH (08:33)
[2019-09-06] MEDS: ASCORBIC ACID 500 MG TABLET PO SCH (08:33)
[2019-09-06] MEDS: CLOPIDOGREL 75MG TABLET PO SCH (08:33)
[2019-09-06] MEDS: FOLIC ACID/VITAMIN B COMP W-C TABLET PO SCH (08:33)
[2019-09-06] MEDS: PIPERACILLIN/TAZOBACTAM 2.25 G in DEXTROSE 5% WATER 50 ML IV SCH ×2 (08:33→21:10)
[2019-09-06] MEDS: ENOXAPARIN 30MG/0.3ML SYR SUBCUT SCH (08:33)
[2019-09-06] MEDS: FAMOTIDINE 20MG TABLET PO SCH (08:33)
[2019-09-06] MEDS: METOPROLOL TARTRATE 50MG TABLET PO SCH ×2 (09:09→21:00)
[2019-09-06] MEDS: INSULIN LISPRO 100 UNITS/ML SUBCUT SCH ×4 (09:10→21:22)
[2019-09-06 09:42] LABS: PLATELET ESTIMATE INCREASED
[2019-09-06 12:00] VITALS: BP 115/54
[2019-09-06 16:00] VITALS: BP 123/69
[2019-09-06 20:00] VITALS: BP 96/81
[2019-09-06] MEDS: ATORVASTATIN CALCIUM 40MG TABLET PO SCH (21:21)
[2019-09-07] VITALS: BP 102/81
[2019-09-07 04:00] VITALS: BP 105/48
[2019-09-07] MEDS: BLOOD SUGAR DIAGNOSTIC STRIP TEST SCH ×4 (06:09→21:04)
[2019-09-07] MEDS: ACETAMINOPHEN 325MG TABLET PO PRN (06:13)
[2019-09-07 08:00] VITALS: BP 130/57
[2019-09-07] MEDS: INSULIN LISPRO 100 UNITS/ML SUBCUT SCH ×4 (08:10→21:04)
[2019-09-07] MEDS: CLOPIDOGREL 75MG TABLET PO SCH (09:12)
[2019-09-07] MEDS: FAMOTIDINE 20MG TABLET PO SCH (09:12)
[2019-09-07] MEDS: ASCORBIC ACID 500 MG TABLET PO SCH (09:13)
[2019-09-07] MEDS: METOPROLOL TARTRATE 50MG TABLET PO SCH ×2 (09:13→20:42)
[2019-09-07] MEDS: FOLIC ACID/VITAMIN B COMP W-C TABLET PO SCH (09:13)
[2019-09-07] MEDS: LEVOTHYROXINE SODIUM 50MCG TABLET PO SCH (09:13)
[2019-09-07] MEDS: ENOXAPARIN 30MG/0.3ML SYR SUBCUT SCH (09:13)
[2019-09-07] MEDS: PIPERACILLIN/TAZOBACTAM 2.25 G in DEXTROSE 5% WATER 50 ML IV SCH ×2 (09:14→20:42)
[2019-09-07 12:00] VITALS: BP 150/46
[2019-09-07 16:00] VITALS: BP 146/48
[2019-09-07 20:00] VITALS: BP 156/73
[2019-09-07] MEDS: ATORVASTATIN CALCIUM 40MG TABLET PO SCH (20:42)
[2019-09-08] VITALS: BP 109/41
[2019-09-08 04:00] VITALS: BP 123/89
[2019-09-08] MEDS: BLOOD SUGAR DIAGNOSTIC STRIP TEST SCH ×4 (06:27→20:47)
[2019-09-08] MEDS: INSULIN LISPRO 100 UNITS/ML SUBCUT SCH ×4 (06:28→20:48)
[2019-09-08] MEDS: CLOPIDOGREL 75MG TABLET PO SCH (06:54)
[2019-09-08 08:00] VITALS: BP 138/110
[2019-09-08] MEDS: FAMOTIDINE 20MG TABLET PO SCH (08:28)
[2019-09-08] MEDS: ASCORBIC ACID 500 MG TABLET PO SCH (08:28)
[2019-09-08] MEDS: METOPROLOL TARTRATE 50MG TABLET PO SCH ×2 (08:29→20:47)
[2019-09-08] MEDS: LEVOTHYROXINE SODIUM 50MCG TABLET PO SCH (08:30)
[2019-09-08] MEDS: PIPERACILLIN/TAZOBACTAM 2.25 G in DEXTROSE 5% WATER 50 ML IV SCH ×2 (08:30→20:46)
[2019-09-08] MEDS: FOLIC ACID/VITAMIN B COMP W-C TABLET PO SCH (08:30)
[2019-09-08 08:55] LABS: HEMATOCRIT. 30.8 % (36.0-48.0); MEAN CORPUSCULAR HEMOGLOBIN 26.9 pg (28.0-32.0); MEAN CORPUSCULAR VOLUME 82.4 fL (81.0-99.0); MEAN PLATELET VOLUME 7.6 fl (7.4-10.4); PLATELET 655 x1000/uL (130-400); RED BLOOD CELL COUNT 3.73 mill/uL (4.2-5.4); RED CELL DISTRIBUTION WIDTH 20.9 % (11.6-14.6)
[2019-09-08 08:59] LABS: INR 1.2; PROTHROMBIN TIME 12.8 sec (9.6-11.0)
[2019-09-08 09:16] LABS: PHOSPHORUS 3.7 mg/dL (2.5-4.9)
[2019-09-08 12:00] VITALS: BP_SYST 103; BP_SYST 128; BP_DIAS 46; BP_DIAS 90
[2019-09-08 14:30] LABS: PLATELET ESTIMATE INCREASED
[2019-09-08 16:00] VITALS: BP 117/59
[2019-09-08 20:00] VITALS: BP 119/47
[2019-09-08] MEDS: ATORVASTATIN CALCIUM 40MG TABLET PO SCH (20:46)
[2019-09-08] MEDS: ACETAMINOPHEN 325MG TABLET PO PRN (20:47)
[2019-09-08] MEDS: EPOETIN ALFA 4000UNITS/ML VIAL SUBCUT SCH (21:39)
[2019-09-09] VITALS: BP 101/52
[2019-09-09] MEDS ORDERED: MORPHINE SULFATE 2 MG/ML CPJ (NOT FOR IM USE) IV PRN (02:00)
[2019-09-09 04:00] VITALS: BP 134/40
[2019-09-09 08:00] VITALS: BP 160/68
[2019-09-09] MEDS: BLOOD SUGAR DIAGNOSTIC STRIP TEST SCH ×4 (08:17→20:59)
[2019-09-09] MEDS: FOLIC ACID/VITAMIN B COMP W-C TABLET PO SCH (08:30)
[2019-09-09] MEDS: ASCORBIC ACID 500 MG TABLET PO SCH (08:30)
[2019-09-09] MEDS: PIPERACILLIN/TAZOBACTAM 2.25 G in DEXTROSE 5% WATER 50 ML IV SCH ×2 (08:30→22:08)
[2019-09-09] MEDS: LEVOTHYROXINE SODIUM 50MCG TABLET PO SCH (08:30)
[2019-09-09] MEDS: FAMOTIDINE 20MG TABLET PO SCH (08:30)
[2019-09-09] MEDS ORDERED: ALTEPLASE 2MG/VIAL ITC SCH (08:30)
[2019-09-09] MEDS: INSULIN LISPRO 100 UNITS/ML SUBCUT SCH ×4 (08:35→21:06)
[2019-09-09] MEDS: METOPROLOL TARTRATE 50MG TABLET PO SCH ×2 (09:00→21:00)
[2019-09-09 10:23] LABS: EOSINOPHILS % 2.6 % (0.0-5.0); HEMATOCRIT. 32.6 % (36.0-48.0); HEMOGLOBIN. 10.3 g/dL (12.0-16.0); MEAN CORPUSCULAR HEMOGLOBIN 26.7 pg (28.0-32.0); MEAN CORPUSCULAR VOLUME 84.4 fL (81.0-99.0); MEAN PLATELET VOLUME 7.4 fl (7.4-10.4); MONOCYTES % 6.9 % (2.0-8.0); NEUTROPHILS % 80.5 % (40.0-76.0); PLATELET 575 x1000/uL (130-400); RED BLOOD CELL COUNT 3.86 mill/uL (4.2-5.4); RED CELL DISTRIBUTION WIDTH 20.7 % (11.6-14.6)
[2019-09-09 10:31] LABS: PHOSPHORUS 4.1 mg/dL (2.5-4.9)
[2019-09-09 12:00] VITALS: BP 135/72
[2019-09-09] MEDS ORDERED: SODIUM BICARBONATE 4% (2.4MEQ) 5ML VIAL IV ONE (12:31)
[2019-09-09] MEDS ORDERED: LIDOCAINE HCL 1% 20ML VIAL (Pyxis) INJ ONE (12:31)
[2019-09-09 16:00] VITALS: BP 135/72
[2019-09-09] MEDS ORDERED: VANCOMYCIN 500 MG PREMIX 100 ML IV SCH (18:00)
[2019-09-09 20:00] VITALS: BP 126/43
[2019-09-09] MEDS: ATORVASTATIN CALCIUM 40MG TABLET PO SCH (21:00)
[2019-09-09] MEDS: ACETAMINOPHEN 325MG TABLET PO PRN (22:09)
[2019-09-10] VITALS: BP 123/65
[2019-09-10] MEDS: ACETAMINOPHEN 325MG TABLET PO PRN (03:13)
[2019-09-10 04:00] VITALS: BP 116/45
[2019-09-10 06:27] LABS: BASOPHILS % 0.5 % (0.0-2.0); EOSINOPHILS % 3.4 % (0.0-5.0); HEMATOCRIT. 28.2 % (36.0-48.0); LYMPHOCYTES % 9.1 % (20.0-50.0); MEAN CORPUSCULAR HEMOGLOBIN 26.5 pg (28.0-32.0); MEAN CORPUSCULAR VOLUME 82.7 fL (81.0-99.0); MEAN PLATELET VOLUME 7.6 fl (7.4-10.4); MONOCYTES % 6.5 % (2.0-8.0); NEUTROPHILS % 80.5 % (40.0-76.0); PLATELET 533 x1000/uL (130-400); RED CELL DISTRIBUTION WIDTH 20.8 % (11.6-14.6)
[2019-09-10 06:48] LABS: PHOSPHORUS 3.1 mg/dL (2.5-4.9)
[2019-09-10] MEDS: BLOOD SUGAR DIAGNOSTIC STRIP TEST SCH ×4 (07:20→20:38)
[2019-09-10 08:17] VITALS: BP 131/43
[2019-09-10] MEDS: INSULIN LISPRO 100 UNITS/ML SUBCUT SCH ×4 (08:43→21:30)
[2019-09-10] MEDS: FAMOTIDINE 20MG TABLET PO SCH (08:44)
[2019-09-10] MEDS: ASCORBIC ACID 500 MG TABLET PO SCH (08:44)
[2019-09-10] MEDS: FOLIC ACID/VITAMIN B COMP W-C TABLET PO SCH (08:45)
[2019-09-10] MEDS: LEVOTHYROXINE SODIUM 50MCG TABLET PO SCH (08:45)
[2019-09-10] MEDS: METOPROLOL TARTRATE 50MG TABLET PO SCH ×2 (08:45→20:39)
[2019-09-10] MEDS: PIPERACILLIN/TAZOBACTAM 2.25 G in DEXTROSE 5% WATER 50 ML IV SCH ×2 (08:46→23:06)
[2019-09-10 12:15] VITALS: BP 140/50
[2019-09-10] MEDS ORDERED: IPRATROPIUM/ALBUTEROL 0.5-3(2.5)MG/3ML NEB HHN PRN (13:15)
[2019-09-10 16:00] VITALS: BP 141/62
[2019-09-10] MEDS ORDERED: INSULIN GLARGINE UD 100 UNITS/ML SYR SUBCUT NR (16:00)
[2019-09-10 20:00] VITALS: BP 110/62
[2019-09-10] MEDS: ATORVASTATIN CALCIUM 40MG TABLET PO SCH (20:38)
[2019-09-11] VITALS: BP 117/75
[2019-09-11 04:00] VITALS: BP 151/61
[2019-09-11] MEDS: BLOOD SUGAR DIAGNOSTIC STRIP TEST SCH ×4 (06:13→20:36)
[2019-09-11] MEDS: LEVOTHYROXINE SODIUM 50MCG TABLET PO SCH (06:13)
[2019-09-11 06:50] LABS: PHOSPHORUS 4.2 mg/dL (2.5-4.9)
[2019-09-11 06:58] LABS: BASOPHILS % 1.4 % (0.0-2.0); EOSINOPHILS % 1.4 % (0.0-5.0); HEMATOCRIT. 29.7 % (36.0-48.0); HEMOGLOBIN. 9.4 g/dL (12.0-16.0); LYMPHOCYTES % 8.2 % (20.0-50.0); MEAN CORPUSCULAR VOLUME 85.2 fL (81.0-99.0); MEAN PLATELET VOLUME 7.9 fl (7.4-10.4); MONOCYTES % 8.7 % (2.0-8.0); NEUTROPHILS % 80.3 % (40.0-76.0); PLATELET 469 x1000/uL (130-400); RED BLOOD CELL COUNT 3.49 mill/uL (4.2-5.4); RED CELL DISTRIBUTION WIDTH 20.5 % (11.6-14.6)
[2019-09-11] MEDS: INSULIN LISPRO 100 UNITS/ML SUBCUT SCH ×4 (07:02→20:58)
[2019-09-11 08:00] VITALS: BP 111/72
[2019-09-11] MEDS: METOPROLOL TARTRATE 50MG TABLET PO SCH ×2 (09:27→20:29)
[2019-09-11] MEDS: ASCORBIC ACID 500 MG TABLET PO SCH (09:28)
[2019-09-11] MEDS: FOLIC ACID/VITAMIN B COMP W-C TABLET PO SCH (09:28)
[2019-09-11] MEDS: FAMOTIDINE 20MG TABLET PO SCH (09:28)
[2019-09-11] MEDS: ACETAMINOPHEN 325MG TABLET PO PRN (09:33)
[2019-09-11] MEDS: PIPERACILLIN/TAZOBACTAM 2.25 G in DEXTROSE 5% WATER 50 ML IV SCH ×2 (10:38→20:29)
[2019-09-11] MEDS: INSULIN GLARGINE UD 100 UNITS/ML SYR SUBCUT SCH (11:32)
[2019-09-11 12:00] VITALS: BP 140/71
[2019-09-11 15:38] VITALS: BP 113/60
[2019-09-11 20:00] VITALS: BP 143/59
[2019-09-11] MEDS: ATORVASTATIN CALCIUM 40MG TABLET PO SCH (20:29)
[2019-09-12] VITALS: BP 120/57
[2019-09-12 04:00] VITALS: BP 119/60
[2019-09-12] MEDS: LEVOTHYROXINE SODIUM 50MCG TABLET PO SCH (06:41)
[2019-09-12] MEDS: BLOOD SUGAR DIAGNOSTIC STRIP TEST SCH ×4 (06:42→21:46)
[2019-09-12 08:00] VITALS: BP 136/56
[2019-09-12] MEDS: ASCORBIC ACID 500 MG TABLET PO SCH (08:18)
[2019-09-12] MEDS: METOPROLOL TARTRATE 50MG TABLET PO SCH ×2 (08:19→21:30)
[2019-09-12] MEDS: FOLIC ACID/VITAMIN B COMP W-C TABLET PO SCH (08:19)
[2019-09-12] MEDS: FAMOTIDINE 20MG TABLET PO SCH (08:19)
[2019-09-12] MEDS: INSULIN LISPRO 100 UNITS/ML SUBCUT SCH ×4 (08:19→21:58)
[2019-09-12] MEDS: PIPERACILLIN/TAZOBACTAM 2.25 G in DEXTROSE 5% WATER 50 ML IV SCH ×2 (09:09→21:46)
[2019-09-12 10:14] LABS: BASOPHILS % 0.8 % (0.0-2.0); EOSINOPHILS % 2.3 % (0.0-5.0); HEMATOCRIT. 29.8 % (36.0-48.0); HEMOGLOBIN. 9.3 g/dL (12.0-16.0); LYMPHOCYTES % 8.1 % (20.0-50.0); MEAN CORPUSCULAR HEMOGLOBIN 26.1 pg (28.0-32.0); MEAN CORPUSCULAR VOLUME 83.5 fL (81.0-99.0); MEAN PLATELET VOLUME 8.1 fl (7.4-10.4); MONOCYTES % 6.5 % (2.0-8.0); NEUTROPHILS % 82.3 % (40.0-76.0); PLATELET 478 x1000/uL (130-400); RED BLOOD CELL COUNT 3.57 mill/uL (4.2-5.4); RED CELL DISTRIBUTION WIDTH 20.6 % (11.6-14.6)
[2019-09-12] MEDS: INSULIN GLARGINE UD 100 UNITS/ML SYR SUBCUT SCH (10:42)
[2019-09-12 10:45] LABS: PHOSPHORUS 4.2 mg/dL (2.5-4.9)
[2019-09-12 12:00] VITALS: BP 134/66
[2019-09-12 16:00] VITALS: BP 138/82
[2019-09-12 20:00] VITALS: BP 156/61
[2019-09-12] MEDS: ATORVASTATIN CALCIUM 40MG TABLET PO SCH (21:29)
[2019-09-12] MEDS: EPOETIN ALFA 4000UNITS/ML VIAL SUBCUT SCH (21:31)
[2019-09-13] VITALS (11 sets, daily range): BP systolic 108–166; BP diastolic 59–70
[2019-09-13] MEDS: LEVOTHYROXINE SODIUM 50MCG TABLET PO SCH (06:46)
[2019-09-13 07:14] LABS: BASOPHILS % 0.8 % (0.0-2.0); EOSINOPHILS % 2.4 % (0.0-5.0); HEMATOCRIT. 26.7 % (36.0-48.0); HEMOGLOBIN. 8.5 g/dL (12.0-16.0); LYMPHOCYTES % 10.8 % (20.0-50.0); MEAN CORPUSCULAR HEMOGLOBIN 26.1 pg (28.0-32.0); MEAN CORPUSCULAR VOLUME 81.8 fL (81.0-99.0); MONOCYTES % 7.2 % (2.0-8.0); NEUTROPHILS % 78.8 % (40.0-76.0); PLATELET 457 x1000/uL (130-400); RED BLOOD CELL COUNT 3.26 mill/uL (4.2-5.4); RED CELL DISTRIBUTION WIDTH 21.1 % (11.6-14.6)
[2019-09-13] MEDS: INSULIN LISPRO 100 UNITS/ML SUBCUT SCH ×4 (07:24→23:43)
[2019-09-13] MEDS: BLOOD SUGAR DIAGNOSTIC STRIP TEST SCH ×4 (07:24→21:00)
[2019-09-13 07:27] LABS: PHOSPHORUS 3.7 mg/dL (2.5-4.9)
[2019-09-13 08:01] LABS: INR 1.3; PROTHROMBIN TIME 14.2 sec (9.6-11.0)
[2019-09-13] MEDS: ASCORBIC ACID 500 MG TABLET PO SCH (09:33)
[2019-09-13] MEDS: METOPROLOL TARTRATE 50MG TABLET PO SCH ×2 (09:33→21:42)
[2019-09-13] MEDS: FAMOTIDINE 20MG TABLET PO SCH (09:33)
[2019-09-13] MEDS: FOLIC ACID/VITAMIN B COMP W-C TABLET PO SCH (09:33)
[2019-09-13] MEDS: PIPERACILLIN/TAZOBACTAM 2.25 G in DEXTROSE 5% WATER 50 ML IV SCH ×2 (09:34→21:42)
[2019-09-13] MEDS: INSULIN GLARGINE UD 100 UNITS/ML SYR SUBCUT SCH (09:39)
[2019-09-13] MEDS ORDERED: VANCOMYCIN 500 MG PREMIX 100 ML IV SCH (12:00)
[2019-09-13 20:14] LABS: HEMOGLOBIN 10.4 g/dL (12.0-16.0)
[2019-09-13 20:27] LABS: INR 1.3
[2019-09-13] MEDS: ATORVASTATIN CALCIUM 40MG TABLET PO SCH (21:41)
[2019-09-14] VITALS: BP 140/68
[2019-09-14 04:00] VITALS: BP 168/61
[2019-09-14 06:00] VITALS: BP 130/61
[2019-09-14] MEDS: BLOOD SUGAR DIAGNOSTIC STRIP TEST SCH ×4 (06:43→21:00)
[2019-09-14] MEDS: LEVOTHYROXINE SODIUM 50MCG TABLET PO SCH (07:19)
[2019-09-14] MEDS ORDERED: VANCOMYCIN HCL 1 GM/VIAL ONE (07:28)
[2019-09-14] MEDS: INSULIN LISPRO 100 UNITS/ML SUBCUT SCH ×4 (07:50→21:01)
[2019-09-14] MEDS ORDERED: DEXTROSE 50% WATER 50ML SYRINGE IV ONE (07:55)
[2019-09-14] MEDS: PIPERACILLIN/TAZOBACTAM 2.25 G in DEXTROSE 5% WATER 50 ML IV SCH ×2 (08:00→20:18)
[2019-09-14] MEDS ORDERED: BUPIVACAINE HCL/EPINEPHRINE/PF 0.5%/0.0005 10ML ONE (08:14)
[2019-09-14] MEDS ORDERED: SODIUM CHLORIDE 0.9% 10ML VIAL ONE ×2 (08:15→08:23)
[2019-09-14] MEDS ORDERED: PHENYLEPHRINE HCL 10 MG/ML 1ML (IV VIAL) IV ONE (08:15)
[2019-09-14] MEDS ORDERED: EPHEDRINE SULFATE 50MG/ML VIAL ONE (08:15)
[2019-09-14] MEDS ORDERED: FENTANYL CITRATE/PF 50MCG/ML 2ML VIAL ONE (08:18)
[2019-09-14] MEDS ORDERED: IOHEXOL-300 50 ML BOTTLE IV ONE (08:18)
[2019-09-14] MEDS ORDERED: MIDAZOLAM HCL 2 MG/2 ML VIAL ONE (08:24)
[2019-09-14] MEDS: ASCORBIC ACID 500 MG TABLET PO SCH (08:29)
[2019-09-14] MEDS: METOPROLOL TARTRATE 50MG TABLET PO SCH ×2 (08:29→23:35)
[2019-09-14] MEDS: FAMOTIDINE 20MG TABLET PO SCH (08:29)
[2019-09-14] MEDS: FOLIC ACID/VITAMIN B COMP W-C TABLET PO SCH (08:29)
[2019-09-14] MEDS: INSULIN GLARGINE UD 100 UNITS/ML SYR SUBCUT SCH (10:00)
[2019-09-14] MEDS ORDERED: HYDROCODONE/ACETAMINOPHEN 5/325MG TABLET PO PRN (10:30)
[2019-09-14 12:00] VITALS: BP 141/37
[2019-09-14] MEDS: HYDROMORPHONE HCL/PF 2MG/ML CPJ IV PRN (15:02)
[2019-09-14 16:00] VITALS: BP 158/57
[2019-09-14 20:00] VITALS: BP 106/68
[2019-09-14] MEDS: ATORVASTATIN CALCIUM 40MG TABLET PO SCH (23:34)
[2019-09-15] VITALS (7 sets, daily range): BP systolic 130–175; BP diastolic 34–67
[2019-09-15] MEDS: CLONIDINE 0.1MG TABLET PO PRN (05:03)
[2019-09-15] MEDS: LEVOTHYROXINE SODIUM 50MCG TABLET PO SCH (06:09)
[2019-09-15] MEDS: HYDROMORPHONE HCL/PF 2MG/ML CPJ IV PRN (06:09)
[2019-09-15] MEDS: BLOOD SUGAR DIAGNOSTIC STRIP TEST SCH ×4 (06:19→21:00)
[2019-09-15 06:44] LABS: BASOPHILS % 0.9 % (0.0-2.0); EOSINOPHILS % 2.3 % (0.0-5.0); HEMATOCRIT. 30.4 % (36.0-48.0); HEMOGLOBIN. 9.6 g/dL (12.0-16.0); LYMPHOCYTES % 7.5 % (20.0-50.0); MEAN CORPUSCULAR HEMOGLOBIN 27.2 pg (28.0-32.0); MEAN CORPUSCULAR VOLUME 85.7 fL (81.0-99.0); MEAN PLATELET VOLUME 8.3 fl (7.4-10.4); MONOCYTES % 10.5 % (2.0-8.0); NEUTROPHILS % 78.8 % (40.0-76.0); PLATELET 432 x1000/uL (130-400); RED BLOOD CELL COUNT 3.55 mill/uL (4.2-5.4); RED CELL DISTRIBUTION WIDTH 20.2 % (11.6-14.6)
[2019-09-15 07:02] LABS: PHOSPHORUS 5.9 mg/dL (2.5-4.9)
[2019-09-15] MEDS: INSULIN LISPRO 100 UNITS/ML SUBCUT SCH ×4 (07:43→22:39)
[2019-09-15] MEDS: FAMOTIDINE 20MG TABLET PO SCH (08:46)
[2019-09-15] MEDS: FOLIC ACID/VITAMIN B COMP W-C TABLET PO SCH (08:46)
[2019-09-15] MEDS: ASCORBIC ACID 500 MG TABLET PO SCH (08:46)
[2019-09-15] MEDS: PIPERACILLIN/TAZOBACTAM 2.25 G in DEXTROSE 5% WATER 50 ML IV SCH (08:46)
[2019-09-15] MEDS: METOPROLOL TARTRATE 50MG TABLET PO SCH ×2 (08:47→22:33)
[2019-09-15] MEDS: INSULIN GLARGINE UD 100 UNITS/ML SYR SUBCUT SCH (09:15)
[2019-09-15] MEDS ORDERED: HYDROCODONE/ACETAMINOPHEN 10/325MG TABLET PO PRN (09:30)
[2019-09-15] MEDS: ATORVASTATIN CALCIUM 40MG TABLET PO SCH (22:33)
[2019-09-15] MEDS: EPOETIN ALFA 4000UNITS/ML VIAL SUBCUT SCH (22:40)
[2019-09-16] VITALS: BP 162/58
[2019-09-16 04:00] VITALS: BP 155/52
[2019-09-16] MEDS: LEVOTHYROXINE SODIUM 50MCG TABLET PO SCH (06:21)
[2019-09-16] MEDS: BLOOD SUGAR DIAGNOSTIC STRIP TEST SCH ×4 (06:21→20:51)
[2019-09-16] MEDS: INSULIN LISPRO 100 UNITS/ML SUBCUT SCH ×4 (07:03→20:52)
[2019-09-16 08:00] VITALS: BP 161/54
[2019-09-16] MEDS: FOLIC ACID/VITAMIN B COMP W-C TABLET PO SCH (09:29)
[2019-09-16] MEDS: ASCORBIC ACID 500 MG TABLET PO SCH (09:29)
[2019-09-16] MEDS: FAMOTIDINE 20MG TABLET PO SCH (09:29)
[2019-09-16] MEDS: INSULIN GLARGINE UD 100 UNITS/ML SYR SUBCUT SCH (10:00)
[2019-09-16 12:00] VITALS: BP 134/55
[2019-09-16] MEDS: TRAMADOL 50MG TABLET PO PRN (13:03)
[2019-09-16 15:35] LABS: BASOPHILS % 0.8 % (0.0-2.0); HEMOGLOBIN. 9.3 g/dL (12.0-16.0); LYMPHOCYTES % 11.6 % (20.0-50.0); MEAN CORPUSCULAR HEMOGLOBIN 27.2 pg (28.0-32.0); MEAN CORPUSCULAR VOLUME 85.3 fL (81.0-99.0); MEAN PLATELET VOLUME 8.4 fl (7.4-10.4); MONOCYTES % 9.9 % (2.0-8.0); NEUTROPHILS % 75.7 % (40.0-76.0); PLATELET 394 x1000/uL (130-400); RED CELL DISTRIBUTION WIDTH 20.5 % (11.6-14.6)
[2019-09-16 15:58] LABS: PHOSPHORUS 6.4 mg/dL (2.5-4.9)
[2019-09-16 16:00] VITALS: BP 168/57
[2019-09-16] MEDS: METOPROLOL TARTRATE 50MG TABLET PO SCH ×2 (17:43→20:59)
[2019-09-16] MEDS: ENOXAPARIN 30MG/0.3ML SYR SUBCUT SCH (17:43)
[2019-09-16] MEDS: LOSARTAN POTASSIUM 25 MG TABLET PO SCH (17:43)
[2019-09-16 20:00] VITALS: BP 163/42
[2019-09-16] MEDS: ATORVASTATIN CALCIUM 40MG TABLET PO SCH (20:59)
[2019-09-17] VITALS: BP 149/46
[2019-09-17 04:00] VITALS: BP 150/58
[2019-09-17] MEDS: LEVOTHYROXINE SODIUM 50MCG TABLET PO SCH (06:20)
[2019-09-17] MEDS: TRAMADOL 50MG TABLET PO PRN ×2 (06:25→09:02)
[2019-09-17] MEDS: BLOOD SUGAR DIAGNOSTIC STRIP TEST SCH ×2 (06:29→12:20)
[2019-09-17] MEDS: INSULIN LISPRO 100 UNITS/ML SUBCUT SCH ×2 (06:38→12:46)
[2019-09-17 07:30] LABS: BASOPHILS % 0.9 % (0.0-2.0); HEMATOCRIT. 26.4 % (36.0-48.0); HEMOGLOBIN. 8.5 g/dL (12.0-16.0); LYMPHOCYTES % 9.3 % (20.0-50.0); MEAN CORPUSCULAR HEMOGLOBIN 27.1 pg (28.0-32.0); MEAN CORPUSCULAR VOLUME 84.4 fL (81.0-99.0); MEAN PLATELET VOLUME 7.9 fl (7.4-10.4); MONOCYTES % 11.6 % (2.0-8.0); NEUTROPHILS % 76.2 % (40.0-76.0); PLATELET 410 x1000/uL (130-400); RED BLOOD CELL COUNT 3.13 mill/uL (4.2-5.4); RED CELL DISTRIBUTION WIDTH 20.7 % (11.6-14.6)
[2019-09-17 08:00] VITALS: BP 159/33
[2019-09-17 08:04] LABS: PHOSPHORUS 4.3 mg/dL (2.5-4.9)
[2019-09-17] MEDS: METOPROLOL TARTRATE 50MG TABLET PO SCH (08:58)
[2019-09-17] MEDS: LOSARTAN POTASSIUM 25 MG TABLET PO SCH (08:58)
[2019-09-17] MEDS: ASCORBIC ACID 500 MG TABLET PO SCH (08:58)
[2019-09-17] MEDS: FOLIC ACID/VITAMIN B COMP W-C TABLET PO SCH (08:58)
[2019-09-17] MEDS: ENOXAPARIN 30MG/0.3ML SYR SUBCUT SCH (08:59)
[2019-09-17] MEDS: FAMOTIDINE 20MG TABLET PO SCH (08:59)
[2019-09-17] MEDS: INSULIN GLARGINE UD 100 UNITS/ML SYR SUBCUT SCH (10:02)
[2019-09-17 12:00] VITALS: BP 171/49
[2019-09-17] MEDS: CLONIDINE 0.1MG TABLET PO PRN (14:12)
[2019-09-17 14:31] VITALS: BP 158/43
[2019-09-17 15:19] VITALS: BP 126/63
== END 2019-09-17 15:23 | DRG 853 ==
LOC: ER 20:42 → 7EST 23:43 → ENRESERV 09-02 01:22 → 7WST 09-03 22:49 → 6WST 09-09 14:27 → 6EST 09-10 12:06 → UNDODISIN 09-13 21:48
PROVIDERS: ADMIT Internal Medicine; ATTEND Internal Medicine
PROC: 5A1D70Z Performance of Urinary Filtration, Intermittent, Less than 6 Hours Per Day (ICD-10-PCS; 2019-09-02)
PROC: 5A1D70Z Performance of Urinary Filtration, Intermittent, Less than 6 Hours Per Day (ICD-10-PCS; 2019-09-04)
PROC: 5A1D70Z Performance of Urinary Filtration, Intermittent, Less than 6 Hours Per Day (ICD-10-PCS; 2019-09-08)
PROC: 0JPT3XZ Removal of Tunneled Vascular Access Device from Trunk Subcutaneous Tissue and Fascia, Percutaneous Approach (ICD-10-PCS; 2019-09-09)
PROC: 05PYX3Z Removal of Infusion Device from Upper Vein, External Approach (ICD-10-PCS; 2019-09-09)
PROC: 5A1D70Z Performance of Urinary Filtration, Intermittent, Less than 6 Hours Per Day (ICD-10-PCS; 2019-09-10)
PROC: 5A1D70Z Performance of Urinary Filtration, Intermittent, Less than 6 Hours Per Day (ICD-10-PCS; 2019-09-12)
PROC: 30233N1 Transfusion of Nonautologous Red Blood Cells into Peripheral Vein, Percutaneous Approach (ICD-10-PCS; 2019-09-13)
PROC: 5A1D70Z Performance of Urinary Filtration, Intermittent, Less than 6 Hours Per Day (ICD-10-PCS; 2019-09-14)
PROC: 02HV33Z Insertion of Infusion Device into Superior Vena Cava, Percutaneous Approach (ICD-10-PCS; 2019-09-14)
PROC: B548ZZA Ultrasonography of Superior Vena Cava, Guidance (ICD-10-PCS; 2019-09-14)
PROC: B5181ZA Fluoroscopy of Superior Vena Cava using Low Osmolar Contrast, Guidance (ICD-10-PCS; 2019-09-14)
PROC: 0Y6H0Z3 Detachment at Right Lower Leg, Low, Open Approach (ICD-10-PCS; principal; 2019-09-15)
PROC: 5A1D70Z Performance of Urinary Filtration, Intermittent, Less than 6 Hours Per Day (ICD-10-PCS; 2019-09-16)
DX: A41.02 Sepsis due to Methicillin resistant Staphylococcus aureus (principal); I50.33 Acute on chronic diastolic (congestive) heart failure; J96.01 Acute respiratory failure with hypoxia; N18.6 End stage renal disease; G92 Toxic encephalopathy; I13.2 Hypertensive heart and chronic kidney disease with heart failure and with stage 5 chronic kidney disease, or end stage renal disease; E11.52 Type 2 diabetes mellitus with diabetic peripheral angiopathy with gangrene; I96 Gangrene, not elsewhere classified; E46 Unspecified protein-calorie malnutrition; E87.2 Acidosis; E11.40 Type 2 diabetes mellitus with diabetic neuropathy, unspecified; E11.22 Type 2 diabetes mellitus with diabetic chronic kidney disease; E03.9 Hypothyroidism, unspecified; E11.42 Type 2 diabetes mellitus with diabetic polyneuropathy; E11.621 Type 2 diabetes mellitus with foot ulcer; E78.5 Hyperlipidemia, unspecified; F03.90 Unspecified dementia, unspecified severity, without behavioral disturbance, psychotic disturbance, mood disturbance, and anxiety; I25.10 Atherosclerotic heart disease of native coronary artery without angina pectoris; I27.21 Secondary pulmonary arterial hypertension; J44.9 Chronic obstructive pulmonary disease, unspecified; K21.9 Gastro-esophageal reflux disease without esophagitis; M19.90 Unspecified osteoarthritis, unspecified site; E78.00 Pure hypercholesterolemia, unspecified; E11.649 Type 2 diabetes mellitus with hypoglycemia without coma; D64.9 Anemia, unspecified; F41.9 Anxiety disorder, unspecified; G89.29 Other chronic pain; I08.0 Rheumatic disorders of both mitral and aortic valves; K59.00 Constipation, unspecified; D72.810 Lymphocytopenia; Z20.828 Contact with and (suspected) exposure to other viral communicable diseases; M54.9 Dorsalgia, unspecified; E11.21 Type 2 diabetes mellitus with diabetic nephropathy; E83.41 Hypermagnesemia; E83.52 Hypercalcemia; L97.519 Non-pressure chronic ulcer of other part of right foot with unspecified severity; Z79.4 Long term (current) use of insulin; Z79.899 Other long term (current) drug therapy; Z82.49 Family history of ischemic heart disease and other diseases of the circulatory system; Z83.3 Family history of diabetes mellitus; Z86.73 Personal history of transient ischemic attack (TIA), and cerebral infarction without residual deficits; Z87.891 Personal history of nicotine dependence; Z99.2 Dependence on renal dialysis; Z79.02 Long term (current) use of antithrombotics/antiplatelets; Z98.61 Coronary angioplasty status; I25.2 Old myocardial infarction; Z89.511 Acquired absence of right leg below knee; Z88.8 Allergy status to other drugs, medicaments and biological substances; Z68.24 Body mass index [BMI] 24.0-24.9, adult
CPT/HCPCS: 36415; 36573; 36589; 71045; 73610; 73630; 73700; 76937; 80048; 80053; 80202; 82962; 83036; 83605; 83735; 84100; 84132; 84134; 84145; 84484; 85014; 85018; 85025; 85049; 85384; 85651; 86140; 86850; 86900; 86920; 87070; 87075; 87077; 87635; 88307; 88311; 93005; 93306; 96365; 97163; 97530; 99291; C1725; J0171; J0456; J0885; J1170; J1650; J1815; J2250; J2270; J2370; J2543; J2997; J3010; J3370; J3490; J7040; J7060; P9016; Q9967